=== PATIENT | female | born 1975 | race Caucasian/White ===

== ENCOUNTER 2016-07-24 11:40 | Observation (INO) | payer OTHER ==
[~2016-07-24] VITALS: Ht 154.9 cm; Wt 46.9 kg
[~2016-07-24 11:40] MED LIST: ACET-704 PO; ALPR0.25 PO; LEVO750T31 PO; PROM25TA10 PO; SULF1TAB23 PO
--- NOTE | 2016-07-24 11:59 | PHYS DOC ---
Past History Past Medical History: No Pertinent History Past Surgical History: No Surgical History Smoking: Less than 1pk/day Alcohol Use: Occasionally Drug Use: None Adult General Chief Complaint Chief Complaint: HYPERGLYCEMIA HPI HPI Patient is a patient is a 41 and female sent over to the emergency room by her PCP for elevated blood sugars. Patient states she has not been eating for the past 4 days secondary to her colitis and today she had for Dr. fregoso and [employer] prior to going to her PCP which she believes is related her blood sugars. Patient has no known history of diabetes. Patient does admit to heavy drinking last week was 5 days ago. Patient denies any history of withdrawal symptoms. Patient does state that she is mildly confused and just does not feel right. Patient does states she is anxious. Has any chest pain or shortness of breath. Patient denies any fevers. Patient has no other complaints. Pertinent exam findings: General anxiety ED course: Patient was seen upon arrival CBC, CMP, lipase, UA, EtOH level, 1 L normal saline bolus along with thiamine was ordered 1320: Discussed lab results the patient and the need to admit for alcohol withdrawal 1330: Discussed chief complaint/history of present illness/past medical history with who agrees to admit the patient to ICU as a full admit Pertinent findings: Elevated INR gap, transaminitis, elevated alcohol level, a lipase MMD: After reviewing the chart, CC, history of present illness, past medical history , lab results the patient is in acute alcohol withdrawal and will admit the patient for further evaluation and management ICU. Review of Systems Review of Systems Constitutional: Anxious Eyes: Denies change in visual acuity, redness, or eye pain [] HENT: Denies nasal congestion or sore throat [] Respiratory: Denies cough or shortness of breath [] Cardiovascular: No additional information not addressed in HPI [] GI: Denies abdominal pain, nausea, vomiting, bloody stools or diarrhea [] : Denies dysuria or hematuria [] Musculoskeletal: Denies back pain or joint pain [] Integument: Denies rash or skin lesions [] Allergies Allergies Allergies Coded Allergies Type Severity Reaction Last Updated Verified Penicillins Allergy Intermediate HIVES 09/24/14 Yes Physical Exam Physical Exam Constitutional: Well developed, well nourished, no acute distress, non-toxic appearance. [] HENT: Normocephalic, atraumatic, bilateral external ears normal, dry mucous members, no oral exudates, nose normal. [] Eyes: PERRLA, EOMI, conjunctiva normal, no discharge. [] Neck: Normal range of motion, no tenderness, supple, no stridor. [] Cardiovascular:Heart rate regular rhythm, no murmur [] Lungs & Thorax: Bilateral breath sounds clear to auscultation [] Abdomen: Bowel sounds normal, soft, no tenderness, no masses, no pulsatile masses. [] Skin: Warm, dry, no erythema, no rash. [] Back: No tenderness, no CVA tenderness. [] Extremities: No tenderness, no cyanosis, no clubbing, ROM intact, no edema. [] Neurologic: Alert and oriented X 3, normal motor function, normal sensory function, no focal deficits noted. [] Psychologic: anxious. [] Current Patient Data Lab Results Nursery Laboratory Tests 07/24/16 12:37: White Blood Count 4.0, Red Blood Count 4.76, Hemoglobin 17.1, Hematocrit 49.1, Mean Corpuscular Volume 103, Mean Corpuscular Hemoglobin 36, Mean Corpuscular Hemoglobin Concent 35, Red Cell Distribution Width 14.4, Platelet Count 123, Neutrophils (%) (Auto) 63, Lymphocytes (%) (Auto) 24, Monocytes (%) (Auto) 10, Eosinophils (%) (Auto) 2, Basophils (%) (Auto) 1, Neutrophils # (Auto) 2.6, Lymphocytes # (Auto) 1.0, Monocytes # (Auto) 0.4, Eosinophils # (Auto) 0.1, Basophils # (Auto) 0.0, Sodium Level 139, Potassium Level 3.5, Chloride Level 97 , Carbon Dioxide Level 27, Anion Gap 15, Blood Urea Nitrogen 7, Creatinine 0.8, Estimated GFR (Cockcroft-Gault) 79.0, BUN/Creatinine Ratio 9, Glucose Level 115 , Calcium Level 8.9, Total Bilirubin 0.5, Aspartate Amino Transf (AST/SGOT) 97, Alanine Aminotransferase (ALT/SGPT) 83, Alkaline Phosphatase 91, Total Protein 8.8, Albumin 4.0, Albumin/Globulin Ratio 0.8, Lipase 1106, Ethyl Alcohol Level 177 EKG EKG [] Radiology/Procedures Radiology/Procedures [] Course & Med Decision Making Course & Med Decision Making Critical care time was 35 minutes exclusive of procedures.Pertinent Labs and Imaging studies reviewed. (See chart for details) [] Dragon Disclaimer Dragon Disclaimer This chart was dictated in whole or in part using Voice Recognition software in a busy, high-work load, and often noisy Emergency Department environment. It may contain unintended and wholly unrecognized errors or omissions. Departure Departure: Impression: Primary Impression: Alcohol withdrawal Additional Impressions: Transaminitis Acute pancreatitis Disposition: ADMITTED INPATIENT Admitting Physician: Fritz Bustamante Condition: CRITICAL Referrals: FRITZ BUSTAMANTE MD (PCP) Problem Qualifiers Primary Impression: Alcohol withdrawal Complication of substance-induced condition: with unspecified complication Qualified Codes: F10.239 - Alcohol dependence with withdrawal, unspecified Additional Impressions: Acute pancreatitis Pancreatitis type: drug induced Acute pancreatitis complication: unspecified Qualified Codes: K85.30 - Drug induced acute pancreatitis without necrosis or infection ELLIOTT MTZ DO July 24, 2016 11:58
[2016-07-24] MEDS ORDERED: IV NORMAL SALINE 1,000ML 1,000 ML IV ONE (12:00)
[2016-07-24] MEDS ORDERED: ONDANSETRON PF 4 MG/2 ML VIAL. IV ONE (12:15)
[2016-07-24] MEDS ORDERED: fentaNYL PF 100 MCG/2 ML VIAL IM ONE (12:30)
[2016-07-24] MEDS ORDERED: THIAMINE 100 MG in IV NORMAL SALINE 50ML 50 ML IV ONE (12:30)
[2016-07-24] MEDS ORDERED: LORazepam 2 MG/ML VIAL IV ONE (12:45)
[2016-07-24 12:50] LABS: BASO % 1 % (0-3); EOS # 0.1 x10^3/uL (0.0-0.7); EOS % 2 % (0-3); HEMATOCRIT 49.1 % (36.0-47.0); HEMOGLOBIN 17.1 g/dL (12.0-15.5); LYMPH % 24 % (24-48); MEAN CORPUSCULAR HEMOGLOBIN 36 pg (25-35); MEAN CORPUSCULAR HGB CONC 35 g/dL (31-37); MEAN CORPUSCULAR VOLUME 103 fL (79-100); MONO # 0.4 x10^3/uL (0.0-1.1); MONO % 10 % (0-9); NEUT # 2.6 x10^3uL (1.8-7.7); NEUT % 63 % (31-73); PLATELET COUNT 123 x10^3/uL (140-400); RED BLOOD COUNT 4.76 x10^6/uL (3.50-5.40); RED CELL DISTRIBUTION WIDTH 14.4 % (11.5-14.5)
[2016-07-24 13:02] LABS: ALBUMIN/GLOBULIN RATIO 0.8 (1.0-1.7); CALCIUM 8.9 mg/dL (8.5-10.1); CREATININE 0.8 mg/dL (0.6-1.0); POTASSIUM 3.5 mmol/L (3.5-5.1); TOTAL BILIRUBIN 0.5 mg/dL (0.2-1.0); TOTAL PROTEIN 8.8 g/dL (6.4-8.2)
[2016-07-24] MEDS ORDERED: ONDANSETRON PF 4 MG/2 ML VIAL. IV PRN (14:00)
[2016-07-24 15:10] VITALS: BP 138/97
[2016-07-24] MEDS ORDERED: chlordiazePOXIDE HCL 25 MG CAPSULE PO PRN (15:15)
[2016-07-24 16:03] VITALS: BP 138/97
[2016-07-24] MEDS: IV NORMAL SALINE 1,000ML 1,000 ML IV SCH (16:44)
[2016-07-24 17:02] VITALS: BP 141/96
[2016-07-24] MEDS ORDERED: PROMETHAZINE 12.5 MG in IV NORMAL SALINE 50ML 50 ML IV PRN (18:00)
[2016-07-24] MEDS ORDERED: PROMETHAZINE 25 MG TABLET. PO PRN (18:00)
[2016-07-24 19:14] VITALS: BP 135/87
[2016-07-24] MEDS: chlordiazePOXIDE HCL 25 MG CAPSULE PO PRN (19:20)
[2016-07-24] MEDS: LORazepam 2 MG/ML VIAL IV PRN (21:21)
[2016-07-24 21:25] VITALS: BP 128/92
[2016-07-24 22:11] LABS: BILIRUBIN,URINE NEG (NEG); CLARITY,URINE HAZY; COLOR,URINE YELLOW; GLUCOSE,URINE NEG (NEG)
[2016-07-24 22:17] LABS: NITRITE,URINE NEG (NEG); UROBILINOGEN,URINE 0.2 mg/dL (0.2 mg/dL)
[2016-07-24 22:18] LABS: BACTERIA,URINE 0 /HPF (0-FEW); RBC,URINE RARE /HPF (0-2); SQUAMOUS EPITHELIAL CELL,UR MOD /LPF
[2016-07-25 00:27] VITALS: BP 131/74
[2016-07-25] MEDS: IV NORMAL SALINE 1,000ML 1,000 ML IV SCH (01:59)
[2016-07-25 05:47] VITALS: BP 150/102
[2016-07-25] MEDS: chlordiazePOXIDE HCL 25 MG CAPSULE PO PRN (05:53)
[2016-07-25 06:02] LABS: BASO % 1 % (0-3); EOS # 0.1 x10^3/uL (0.0-0.7); EOS % 2 % (0-3); HEMATOCRIT 42.1 % (36.0-47.0); HEMOGLOBIN 14.5 g/dL (12.0-15.5); LYMPH # 0.4 x10^3/uL (1.0-4.8); LYMPH % 14 % (24-48); MEAN CORPUSCULAR HEMOGLOBIN 36 pg (25-35); MEAN CORPUSCULAR HGB CONC 35 g/dL (31-37); MEAN CORPUSCULAR VOLUME 104 fL (79-100); MONO # 0.3 x10^3/uL (0.0-1.1); MONO % 10 % (0-9); NEUT # 2.2 x10^3uL (1.8-7.7); NEUT % 73 % (31-73); PLATELET COUNT 78 x10^3/uL (140-400); RED BLOOD COUNT 4.03 x10^6/uL (3.50-5.40); RED CELL DISTRIBUTION WIDTH 13.9 % (11.5-14.5); WHITE BLOOD COUNT 3.1 x10^3/uL (4.0-11.0)
[2016-07-25 06:11] LABS: AMYLASE 69 U/L (25-115); LIPASE 499 U/L (73-393)
[2016-07-25 06:14] LABS: ALBUMIN 2.9 g/dL (3.4-5.0); ALBUMIN/GLOBULIN RATIO 0.8 (1.0-1.7); CALCIUM 7.5 mg/dL (8.5-10.1); CREATININE 0.6 mg/dL (0.6-1.0); GFR 110.2; POTASSIUM 3.4 mmol/L (3.5-5.1); TOTAL BILIRUBIN 1.2 mg/dL (0.2-1.0); TOTAL PROTEIN 6.4 g/dL (6.4-8.2)
[2016-07-25 08:28] VITALS: BP 144/100
[2016-07-25 08:30] VITALS: BP 150/95
[2016-07-25] MEDS: LORazepam 2 MG/ML VIAL IV PRN (08:34)
[2016-07-25] MEDS ORDERED: MULT-211 PO (10:33)
== END 2016-07-25 10:40 | disposition home or self-care (01) ==
LOC: ER 11:40 → INTOOBSV 13:54 → ICU 13:54
PROVIDERS: ADMIT Family Medicine; ATTEND Family Medicine
DX: F10.239 Alcohol dependence with withdrawal, unspecified (principal); R73.9 Hyperglycemia, unspecified; K85.30 Drug induced acute pancreatitis without necrosis or infection; R74.0 Nonspecific elevation of levels of transaminase and lactic acid dehydrogenase [LDH]; F41.1 Generalized anxiety disorder
CPT/HCPCS: 36415; 80053; 81001; 82150; 83690; 85027; 87086; 87641; 96361; 96365; 96367; 96375; 96376; 99285; G0378; G0480; J2060; J2405; J2550; G0379; J7030

== ENCOUNTER 2017-05-12 11:04 | Inpatient (IN) | payer OTHER ==
[~2017-05-12] VITALS: Ht 157.5 cm; Wt 55.5 kg
[~2017-05-12 11:04] MED LIST changes: +MULT-211 PO
[2017-05-12 11:25] VITALS: BP 150/95
[2017-05-12] MEDS ORDERED: ACETAMINOPHEN 325 MG TABLET PO PRN (11:30)
[2017-05-12 11:38] VITALS: BP 106/66
[2017-05-12 11:41] LABS: BASO % 0 % (0-3); EOS # 0.1 x10^3/uL (0.0-0.7); EOS % 1 % (0-3); HEMATOCRIT 36.5 % (36.0-47.0); HEMOGLOBIN 12.4 g/dL (12.0-15.5); LYMPH # 0.9 x10^3/uL (1.0-4.8); LYMPH % 8 % (24-48); MEAN CORPUSCULAR HEMOGLOBIN 33 pg (25-35); MEAN CORPUSCULAR HGB CONC 34 g/dL (31-37); MEAN CORPUSCULAR VOLUME 97 fL (79-100); MONO # 0.7 x10^3/uL (0.0-1.1); MONO % 6 % (0-9); NEUT # 10.7 x10^3uL (1.8-7.7); NEUT % 86 % (31-73); PLATELET COUNT 327 x10^3/uL (140-400); RED BLOOD COUNT 3.77 x10^6/uL (3.50-5.40); RED CELL DISTRIBUTION WIDTH 14.1 % (11.5-14.5); WHITE BLOOD COUNT 12.4 x10^3/uL (4.0-11.0)
[2017-05-12] MEDS ORDERED: IOHEXOL 240 MG/ML 50ML VIAL. ONE (11:48)
[2017-05-12 12:08] LABS: ALBUMIN 3.5 g/dL (3.4-5.0); ALBUMIN/GLOBULIN RATIO 1.1 (1.0-1.7); CALCIUM 8.5 mg/dL (8.5-10.1); CREATININE 0.8 mg/dL (0.6-1.0); GFR 78.7; TOTAL BILIRUBIN 0.5 mg/dL (0.2-1.0); TOTAL PROTEIN 6.8 g/dL (6.4-8.2)
[2017-05-12 12:12] LABS: POTASSIUM 2.9 mmol/L (3.5-5.1)
[2017-05-12] MEDS ORDERED: POTASSIUM CHLORIDE 20 MEQ/15 ML ORAL LIQUID. FT SCH (13:15)
[2017-05-12] MEDS: IV NORMAL SALINE 1,000ML 1,000 ML IV SCH (13:58)
[2017-05-12] MEDS: POTASSIUM CHLORIDE 10MEQ 50 ML IV SCH ×4 (13:59→18:19)
[2017-05-12 14:00] LABS: FECAL OB PT POSITIVE (NEG)
[2017-05-12] MEDS: ONDANSETRON PF 4 MG/2 ML VIAL. IV PRN ×2 (14:14→21:28)
[2017-05-12] MEDS ORDERED: PROMETHAZINE 25 MG TABLET. PO PRN (14:45)
[2017-05-12] MEDS ORDERED: MIRT15TA3 PO (14:52)
[2017-05-12] MEDS ORDERED: NAPR-514 PO (14:52)
[2017-05-12] MEDS ORDERED: SERT50TA PO (14:52)
[2017-05-12] MEDS ORDERED: PRAZ2CAP2 PO (14:52)
[2017-05-12] MEDS ORDERED: NALT50TA PO (14:52)
[2017-05-12] MEDS ORDERED: LORA0.5T PO (14:52)
[2017-05-12] MEDS ORDERED: PRED20TA PO (14:52)
[2017-05-12] MEDS ORDERED: GABA-586 PO (14:52)
[2017-05-12 15:03] LABS: BILIRUBIN,URINE NEG (NEG); CLARITY,URINE CLEAR; COLOR,URINE YELLOW; GLUCOSE,URINE NEG (NEG); NITRITE,URINE NEG (NEG); UROBILINOGEN,URINE 0.2 mg/dL (0.2 mg/dL)
[2017-05-12 15:04] LABS: BACTERIA,URINE 0 /HPF (0-FEW); SQUAMOUS EPITHELIAL CELL,UR MOD /LPF
--- NOTE | 2017-05-12 15:50 | RAD ---
PQRS Compliance Statement: One or more of the following individualized dose reduction techniques were utilized for this examination: 1. Automated exposure control 2. Adjustment of the mA and/or kV according to patient size 3. Use of iterative reconstruction technique CT ABD PEL W/ORAL CONTRST ONLY Clinical Indication: patient has been told she has colitis diarrhea for last 5 weeks. Comparison: CT abdomen and pelvis without IV contrast, September 28, 2015. TECHNIQUE: Helical CT imaging of the abdomen and pelvis is performed after oral contrast. IV contrast not given. Findings: There is minimal atelectasis or scarring in the bilateral lower lobes. Calcified granuloma left lower lobe. Cardiac size normal. The liver, gallbladder, spleen, pancreas, adrenal glands, and abdominal aorta caliber are normal. There is no renal calculus. No hydronephrosis or perinephric stranding. Stomach is unremarkable. No dilated small bowel. There is no colon wall thickening. The appendix is normal. The urinary bladder is normal. Uterus and ovaries unremarkable. Trace pelvic free fluid. No acute bone abnormality. IMPRESSION: 1. No acute abdominal or pelvic abnormality. 2. Trace pelvic free fluid, probably physiologic. Electronically signed by: Isma Tucker MD (05/12/2017 3:47 PM) [id number]
[2017-05-12 20:20] VITALS: BP 108/70
[2017-05-12] MEDS: PRAZOSIN 1 MG CAPSULE. PO SCH (21:27)
[2017-05-12] MEDS: MIRTAZAPINE 7.5 MG TABLET. PO SCH (21:27)
[2017-05-12] MEDS: LORazepam 0.5 MG TABLET PO SCH (21:27)
[2017-05-12] MEDS: GABAPENTIN 300 MG CAPSULE. PO SCH (21:28)
[2017-05-12 23:27] VITALS: BP 96/61
[2017-05-13] MEDS: IV NORMAL SALINE 1,000ML 1,000 ML IV SCH ×3 (00:11→20:31)
[2017-05-13] MEDS: metroNIDAZOLE 500 MG TABLET PO SCH ×4 (03:50→20:03)
[2017-05-13 05:48] VITALS: BP 109/73
[2017-05-13 06:42] LABS: BASO % 1 % (0-3); EOS # 0.2 x10^3/uL (0.0-0.7); EOS % 4 % (0-3); HEMATOCRIT 34.4 % (36.0-47.0); HEMOGLOBIN 11.8 g/dL (12.0-15.5); LYMPH # 1.2 x10^3/uL (1.0-4.8); LYMPH % 23 % (24-48); MEAN CORPUSCULAR HEMOGLOBIN 34 pg (25-35); MEAN CORPUSCULAR HGB CONC 34 g/dL (31-37); MEAN CORPUSCULAR VOLUME 98 fL (79-100); MONO # 0.4 x10^3/uL (0.0-1.1); MONO % 8 % (0-9); NEUT # 3.3 x10^3uL (1.8-7.7); NEUT % 64 % (31-73); PLATELET COUNT 286 x10^3/uL (140-400); RED BLOOD COUNT 3.51 x10^6/uL (3.50-5.40); RED CELL DISTRIBUTION WIDTH 13.7 % (11.5-14.5); WHITE BLOOD COUNT 5.1 x10^3/uL (4.0-11.0)
[2017-05-13 06:53] LABS: CALCIUM 7.7 mg/dL (8.5-10.1); CREATININE 0.6 mg/dL (0.6-1.0); GFR 109.6; POTASSIUM 3.5 mmol/L (3.5-5.1)
[2017-05-13] MEDS ORDERED: PNEUMOC CONJ VACC 23-VALENT 0.5 ML VIAL. VAX IM ONE (09:00)
[2017-05-13] MEDS: LORazepam 0.5 MG TABLET PO SCH ×2 (09:32→20:03)
[2017-05-13] MEDS: predniSONE 20 MG TABLET PO SCH (09:32)
[2017-05-13] MEDS: MULTIVITAMIN with MINERAL TABLET. PO SCH (09:32)
[2017-05-13] MEDS: GABAPENTIN 300 MG CAPSULE. PO SCH ×3 (09:33→20:04)
[2017-05-13] MEDS: SERTRALINE 50 MG TABLET. PO SCH (09:33)
[2017-05-13] MEDS ORDERED: ZOLPIDEM 5 MG TABLET. PO PRN (10:00)
[2017-05-13] MEDS: NALTREXONE HCL 50 MG TABLET PO SCH (10:21)
[2017-05-13] MEDS: ONDANSETRON PF 4 MG/2 ML VIAL. IV PRN ×2 (10:21→20:17)
[2017-05-13 11:11] VITALS: BP 118/77
[2017-05-13] MEDS: VANCOMYCIN 250 MG/5 ML ORAL SOLUTION. PO SCH ×3 (14:50→20:02)
[2017-05-13 15:47] VITALS: BP 163/72
[2017-05-13 19:04] VITALS: BP 126/72
[2017-05-13] MEDS: MIRTAZAPINE 7.5 MG TABLET. PO SCH (20:03)
[2017-05-13] MEDS: PRAZOSIN 1 MG CAPSULE. PO SCH (20:03)
--- NOTE | 2017-05-13 23:23 | PN ---
DATE: 05/13/2017 SUBJECTIVE: A 42-year-old female came in with significant diarrhea. No history of taking antibiotics, positive for C. diff. Her potassium was also extremely low at 2.9. As a result of this, the patient was admitted to the hospital, placed on IV fluids, placed on vancomycin and metronidazole, doing somewhat better. OBJECTIVE: VITAL SIGNS: Blood pressure was as low as 96/61, has come up to 163/72, respiratory rate 20, pulse 70, afebrile. LUNGS: Diminished, but clear. CARDIOVASCULAR: Stable. ABDOMEN: Soft, diffuse tenderness, but improved. IMPRESSION: C. difficile colitis, hypokalemia, hematochezia. PLAN: Continue on present medication. Monitor electrolytes and hopefully ready for discharge here soon. Long discussion with the patient about the consideration of the situation. CAMERON PENNY MD DR: YVETTE/chidi JOB#: [id number] / [id number]
[2017-05-14] MEDS: IV NORMAL SALINE 1,000ML 1,000 ML IV SCH (04:31)
[2017-05-14 06:04] VITALS: BP 149/92
[2017-05-14 06:19] VITALS: BP 127/82
[2017-05-14 06:56] LABS: BASO % 0 % (0-3); EOS # 0.1 x10^3/uL (0.0-0.7); EOS % 2 % (0-3); HEMOGLOBIN 11.9 g/dL (12.0-15.5); LYMPH # 1.3 x10^3/uL (1.0-4.8); LYMPH % 20 % (24-48); MEAN CORPUSCULAR HEMOGLOBIN 34 pg (25-35); MEAN CORPUSCULAR HGB CONC 34 g/dL (31-37); MEAN CORPUSCULAR VOLUME 98 fL (79-100); MONO # 0.4 x10^3/uL (0.0-1.1); MONO % 6 % (0-9); NEUT # 4.6 x10^3uL (1.8-7.7); NEUT % 72 % (31-73); PLATELET COUNT 296 x10^3/uL (140-400); RED BLOOD COUNT 3.56 x10^6/uL (3.50-5.40); WHITE BLOOD COUNT 6.5 x10^3/uL (4.0-11.0)
[2017-05-14] MEDS: VANCOMYCIN 250 MG/5 ML ORAL SOLUTION. PO SCH (09:28)
[2017-05-14] MEDS: MULTIVITAMIN with MINERAL TABLET. PO SCH (09:29)
[2017-05-14] MEDS: metroNIDAZOLE 500 MG TABLET PO SCH (09:29)
[2017-05-14] MEDS: GABAPENTIN 300 MG CAPSULE. PO SCH (09:29)
[2017-05-14] MEDS: NALTREXONE HCL 50 MG TABLET PO SCH (09:29)
[2017-05-14] MEDS: SERTRALINE 50 MG TABLET. PO SCH (09:30)
[2017-05-14] MEDS: predniSONE 20 MG TABLET PO SCH (09:30)
[2017-05-14] MEDS: LORazepam 0.5 MG TABLET PO SCH (09:34)
[2017-05-14] MEDS ORDERED: ZOLP5TAB PO (10:27)
[2017-05-14] MEDS ORDERED: VANC500V PO (10:27)
[2017-05-14] MEDS ORDERED: METR500T PO (10:27)
--- NOTE | 2017-05-14 12:17 | DS ---
DATE OF DISCHARGE: HOSPITAL COURSE: A 42-year-old female, came in with diarrhea, abdominal cramping and pain after 10 stools a day, markedly dehydrated. As a result of this, the patient was given IV fluids. Her stool showed C. difficile colitis and as a result of this the patient was admitted. The patient made good progress during the rest of her hospitalization and was discharged home on Flagyl and vancomycin, which really seemed to help her stool, count went down as a result of the combination of antibiotics. The patient also was slightly anemic at 11.9 and 35. Chemistries showed a low potassium of 2.9, up to 3.5. She will be discharged home, see EMRAD, decreased activity, and was given precautions on her C. diff. IMPRESSION: Clostridium difficile colitis, dehydration, hypokalemia, mild hematuria, fecal Hemoccult positive. FOLLOW UP: The patient follows up with Dr. Burns. CAMERON PENNY MD DR: YVETTE/chidi JOB#: [id number] / [id number]
== END 2017-05-14 11:15 | disposition home or self-care (01) | DRG 373 ==
LOC: 1 SOUTH 11:11 → OBSVTOIN 11:11
PROVIDERS: ADMIT Family Medicine; ATTEND Family Medicine
DX: A04.72 Enterocolitis due to Clostridium difficile, not specified as recurrent (principal); D64.9 Anemia, unspecified; R31.9 Hematuria, unspecified; E86.0 Dehydration; E87.6 Hypokalemia; Z88.0 Allergy status to penicillin
CPT/HCPCS: 36415; 74176; 80048; 80053; 81001; 82274; 84132; 85025; 85651; 87045; 87086; 87177; 87324; J2405; J3480; J7512; Q0169; J7030

== ENCOUNTER 2017-05-22 15:38 | Emergency (ER) | payer OTHER ==
[~2017-05-22] VITALS: Ht 157.5 cm; Wt 54.6 kg
[~2017-05-22 15:38] MED LIST changes: +GABA-586 PO; +LORA0.5T PO; +METR500T PO; +MIRT15TA3 PO; +NALT50TA PO; +NAPR-514 PO; +PRAZ2CAP2 PO; +PRED20TA PO; +SERT50TA PO; +VANC500V PO; +ZOLP5TAB PO
[2017-05-22] MEDS ORDERED: IV NORMAL SALINE 1,000ML 1,000 ML IV ONE (16:15)
--- NOTE | 2017-05-22 16:40 | RAD ---
RIBS RIGHT AND PA CHEST History: Right-sided rib pain, shortness of air, fall this a.m. Comparison: September 28, 2015 Findings: Single view of the chest and 2 additional views right ribs are submitted. Pericardial cardiac silhouette is stable. There is again small granuloma left lung base, also small focus mid right hemithorax. There is no pneumothorax, pleural fluid, infiltrate. No displaced right rib fracture is identified. Impression: 1. No acute abnormality is identified. Electronically signed by: Mario Kennedy MD (05/22/2017 4:37 PM) [id number]
[2017-05-22 16:43] LABS: BASO # 0.1 x10^3/uL (0.0-0.2); BASO % 1 % (0-3); EOS # 0.1 x10^3/uL (0.0-0.7); EOS % 2 % (0-3); HEMATOCRIT 42.2 % (36.0-47.0); HEMOGLOBIN 14.1 g/dL (12.0-15.5); LYMPH # 0.9 x10^3/uL (1.0-4.8); LYMPH % 12 % (24-48); MEAN CORPUSCULAR HEMOGLOBIN 33 pg (25-35); MEAN CORPUSCULAR HGB CONC 33 g/dL (31-37); MEAN CORPUSCULAR VOLUME 98 fL (79-100); MONO # 0.5 x10^3/uL (0.0-1.1); MONO % 7 % (0-9); NEUT # 5.5 x10^3uL (1.8-7.7); NEUT % 79 % (31-73); PLATELET COUNT 288 x10^3/uL (140-400); RED CELL DISTRIBUTION WIDTH 14.1 % (11.5-14.5); WHITE BLOOD COUNT 7.1 x10^3/uL (4.0-11.0)
[2017-05-22 16:45] LABS: CALCIUM 9.6 mg/dL (8.5-10.1); CREATININE 0.7 mg/dL (0.6-1.0); GFR 91.8; POTASSIUM 4.4 mmol/L (3.5-5.1)
--- NOTE | 2017-05-22 17:15 | PHYS DOC ---
Past History Past Medical History: Anxiety Past Surgical History: Other Smoking: Less than 1pk/day Alcohol Use: Sober Drug Use: None Adult General Chief Complaint Chief Complaint: MULTIPLE COMPLAINTS HPI HPI Patient is a 42 year old F who presents with right-sided rib pain after a fall this morning. Tamera states that she woke up around 3:00 this morning with an urge to go to the bathroom. Upon standing she felt the room was spinning. She tried to grab on to the counter and was unable to stop herself from falling. She landed on the right side of her body hitting her right ribs and right face. She states that her symptoms improved without intervention. She has no other associated symptoms at this time. She has no other exacerbating or alleviating factors. She was recently diagnosed with C. difficile and is currently on oral vancomycin and Flagyl. Review of Systems Review of Systems Constitutional: Denies fever or chills [] Eyes: Denies change in visual acuity, redness, or eye pain [] HENT: Denies nasal congestion or sore throat [] Respiratory: Denies cough or shortness of breath [] Cardiovascular: No additional information not addressed in HPI [] GI: Denies abdominal pain, nausea, vomiting, bloody stools or diarrhea [] : Denies dysuria or hematuria [] Musculoskeletal: Denies back pain or joint pain [] Integument: Denies rash or skin lesions [] Neurologic: Denies headache, focal weakness or sensory changes [] Endocrine: Denies polyuria or polydipsia [] All other systems were reviewed and found to be within normal limits, except as documented in this note. Family History Family History No pertinent family medical history was reported Current Medications Current Medications Current medications were reviewed Current Medications Medications (Trade) Dose Ordered Sig/Shelley Start Time Stop Time Status Last Admin Dose Admin Sodium Chloride 1,000 ml @ 1,000 mls/hr 1X ONCE 05/22/17 16:15 05/22/17 17:14 05/22/17 16:15 1,000 MLS/HR Allergies Allergies Allergies Coded Allergies Type Severity Reaction Last Updated Verified Penicillins Allergy Intermediate HIVES 09/24/14 Yes Physical Exam Physical Exam Constitutional: Well developed, well nourished, no acute distress, non-toxic appearance. [] HENT: Normocephalic, atraumatic, Eyes: EOMI, conjunctiva normal, no discharge. [] Neck: Normal range of motion, no tenderness, supple, no stridor. [] Cardiovascular:Heart rate regular rhythm, Lungs & Thorax: Bilateral breath sounds clear to auscultation [] right lateral rib pain with palpation Abdomen: Bowel sounds normal, soft, no tenderness, no masses, no pulsatile masses. [] Skin: Warm, dry, no erythema, no rash. [] Back: No tenderness, no CVA tenderness. [] Extremities: No tenderness, no cyanosis, no clubbing, ROM intact, no edema. [] Neurologic: Alert and oriented X 3, normal motor function, normal sensory function, no focal deficits noted. [] Psychologic: Affect normal, judgement normal, mood normal. [] Current Patient Data Vital Signs Vital Signs Date Time Temp Pulse Resp B/P (MAP) Pulse Ox O2 Delivery O2 Flow Rate FiO2 05/22/17 15:52 97.8 83 18 100 Room Air Lab Results Laboratory Tests Test 05/22/17 16:25 White Blood Count 7.1 x10^3/uL (4.0-11.0) Red Blood Count 4.30 x10^6/uL (3.50-5.40) Hemoglobin 14.1 g/dL (12.0-15.5) Hematocrit 42.2 % (36.0-47.0) Mean Corpuscular Volume 98 fL (79-100) Mean Corpuscular Hemoglobin 33 pg (25-35) Mean Corpuscular Hemoglobin Concent 33 g/dL (31-37) Red Cell Distribution Width 14.1 % (11.5-14.5) Platelet Count 288 x10^3/uL (140-400) Neutrophils (%) (Auto) 79 % (31-73) H Lymphocytes (%) (Auto) 12 % (24-48) L Monocytes (%) (Auto) 7 % (0-9) Eosinophils (%) (Auto) 2 % (0-3) Basophils (%) (Auto) 1 % (0-3) Neutrophils # (Auto) 5.5 x10^3uL (1.8-7.7) Lymphocytes # (Auto) 0.9 x10^3/uL (1.0-4.8) L Monocytes # (Auto) 0.5 x10^3/uL (0.0-1.1) Eosinophils # (Auto) 0.1 x10^3/uL (0.0-0.7) Basophils # (Auto) 0.1 x10^3/uL (0.0-0.2) Sodium Level 141 mmol/L (136-145) Potassium Level 4.4 mmol/L (3.5-5.1) Chloride Level 103 mmol/L (98-107) Carbon Dioxide Level 27 mmol/L (21-32) Anion Gap 11 (6-14) Blood Urea Nitrogen 12 mg/dL (7-20) Creatinine 0.7 mg/dL (0.6-1.0) Estimated GFR (Cockcroft-Gault) 91.8 Glucose Level 96 mg/dL (70-99) Calcium Level 9.6 mg/dL (8.5-10.1) EKG EKG [] Radiology/Procedures Radiology/Procedures Right Rib and Chest x-ray Impressions: No acute disease noted. No fracture noted Course & Med Decision Making Course & Med Decision Making Pertinent Labs and Imaging studies reviewed. (See chart for details) [] Dragon Disclaimer Dragon Disclaimer This electronic medical record was generated, in whole or in part, using a voice recognition dictation system. Departure Departure: Impression: Primary Impression: Vertigo Additional Impression: Contusion of rib on right side Disposition: 01 HOME, SELF-CARE Condition: STABLE Referrals: CAMERON PENNY MD (PCP) Patient Instructions: Rib Contusion, Vertigo Additional Instructions: Tamera was seen in the emergency department for dizziness and fall. No emergency medical condition was found on history or physical exam. She did have normal labs and imaging. Her symptoms are most consistent with vertigo. Her fall resulted in a right sided rib contusion, or bruise. She is encouraged to use lidocaine patches for pain and take frequent deep breaths to prevent complications associated with her bruises. She was encouraged to return to the emergency room if she develops new or worsening symptoms. She was also advised follow-up with her primary care doctor as needed for further management. Problem Qualifiers Additional Impression: Contusion of rib on right side Encounter type: initial encounter Qualified Codes: S20.211A - Contusion of right front wall of thorax, initial encounter CAMERON GREY MD May 22, 2017 17:15
[2017-05-22 17:22] VITALS: BP 109/69
== END 2017-05-22 17:23 | disposition home or self-care (01) ==
LOC: ER 15:38
DX: S20.211A Contusion of right front wall of thorax, initial encounter (principal); R42 Dizziness and giddiness; F41.9 Anxiety disorder, unspecified; F17.200 Nicotine dependence, unspecified, uncomplicated; Z88.0 Allergy status to penicillin; W01.198A Fall on same level from slipping, tripping and stumbling with subsequent striking against other object, initial encounter; Y93.89 Activity, other specified; Y92.091 Bathroom in other non-institutional residence as the place of occurrence of the external cause; Y99.8 Other external cause status
CPT/HCPCS: 36415; 71101; 80048; 85025; 96360; 99285-25; J7030

== ENCOUNTER 2017-12-25 09:40 | Emergency (ER) | payer OTHER ==
[2017-12-25] MEDS ORDERED: IV NORMAL SALINE 1,000ML 1,000 ML IV SCH (09:51)
--- NOTE | 2017-12-25 10:01 | PHYS DOC ---
Past History Past Medical History: Anxiety Additional Past Medical Histor: patient reports a history of ulcerative colitis Past Surgical History: Other Additional Past Surgical Histo: hernia Smoking: Less than 1pk/day Alcohol Use: Occasionally Drug Use: None Adult General Chief Complaint Chief Complaint: NAUSEA/VOMITING/DIARRHEA HPI HPI Patient is a 42-year-old female who presents to the emergency department for evaluation. She states that she has not felt well for the past 3 days, with general malaise. She states she has felt cold, and has had nonbloody diarrhea. She has not had any fevers. She has not had any vomiting and denies any new abdominal pain. She states she has a history of "colitis", which she states was diagnosed as ulcerative colitis, she has had C. difficile in the past, apparently most recently this past May when she had a test that was positive here. She has not had any cough or nasal congestion. She denies any chest pain or shortness of breath, headache, otalgia, numbness or focal weakness. There are no alleviating, or exacerbating factors to her symptoms. She denies any recent travel or antibiotic use. Review of Systems Review of Systems Constitutional: Denies fever or chills. Does report feeling cold. [] Eyes: Denies change in visual acuity, redness, or eye pain [] HENT: Denies nasal congestion or sore throat [] Respiratory: Denies cough or shortness of breath [] Cardiovascular: The patient denies any shortness of breath, chest pain, palpitations, or orthopnea[] GI: Denies abdominal pain, nausea, vomiting, bloody stools . Reports diarrhea [] : Denies dysuria or hematuria. States LMP 11/09/17 [] Musculoskeletal: Denies back pain or joint pain [] Integument: Denies rash or skin lesions [] Neurologic: Denies headache, focal weakness or sensory changes [] Endocrine: Denies polyuria or polydipsia [] All other systems were reviewed and found to be within normal limits, except as documented in this note. Current Medications Current Medications Current Medications Medications (Trade) Dose Ordered Sig/Shelley Start Time Stop Time Status Last Admin Dose Admin Sodium Chloride 1,000 ml @ 1,000 mls/hr Q1H 12/25/17 09:51 12/25/17 10:50 UNV Allergies Allergies Allergies Coded Allergies Type Severity Reaction Last Updated Verified Penicillins Allergy Intermediate HIVES 09/24/14 Yes Physical Exam Physical Exam PHYSICAL EXAM: CONSTITUTIONAL: Well developed, well nourished HEAD: normocephalic, atraumatic EENT: PERRL, EOMI. Conjunctivae normal color, sclerae non-icteric; moist mucous membranes. NECK: Supple, non-tender; no meningismus. LUNGS: Lungs CTA, breathing even and unlabored. Normal air movement. HEART: Regular rate and rhythm, no murmur CHEST: No deformity; non-tender ABDOMEN: The abdomen is soft, there is very mild tenderness to palpation in the left mid and lower abdomen, without rebound or guarding. The remainder the abdomen is soft and non-tender, no masses or bruits. EXTREM: Normal ROM; no deformity, no calf tenderness. Normal pulses palpable in all extremities. There is no pedal edema. SKIN: No rash; no diaphoresis NEURO: Alert; normal speech and cognition; CN's grossly intact; strength grossly intact without focal deficit. BACK: No CVA TTP. Current Patient Data Lab Results Laboratory Tests Test 12/25/17 10:03 12/25/17 10:13 12/25/17 10:15 White Blood Count 5.6 x10^3/uL Red Blood Count 4.45 x10^6/uL Hemoglobin 15.6 g/dL Hematocrit 45.2 % Mean Corpuscular Volume 102 fL Mean Corpuscular Hemoglobin 35 pg Mean Corpuscular Hemoglobin Concent 35 g/dL Red Cell Distribution Width 16.2 % Platelet Count 195 x10^3/uL Neutrophils (%) (Auto) 67 % Lymphocytes (%) (Auto) 23 % Monocytes (%) (Auto) 6 % Eosinophils (%) (Auto) 3 % Basophils (%) (Auto) 1 % Neutrophils # (Auto) 3.8 x10^3uL Lymphocytes # (Auto) 1.3 x10^3/uL Monocytes # (Auto) 0.3 x10^3/uL Eosinophils # (Auto) 0.2 x10^3/uL Basophils # (Auto) 0.0 x10^3/uL Maternal Serum HCG Beta Subunit 1 mIU/mL Sodium Level 140 mmol/L Potassium Level 3.9 mmol/L Chloride Level 102 mmol/L Carbon Dioxide Level 27 mmol/L Anion Gap 11 Blood Urea Nitrogen 10 mg/dL Creatinine 0.6 mg/dL Estimated GFR (Cockcroft-Gault) 109.6 BUN/Creatinine Ratio 17 Glucose Level 79 mg/dL Lactic Acid Level 2.7 mmol/L Calcium Level 8.5 mg/dL Total Bilirubin 0.5 mg/dL Aspartate Amino Transf (AST/SGOT) 26 U/L Alanine Aminotransferase (ALT/SGPT) 26 U/L Alkaline Phosphatase 90 U/L Total Protein 8.3 g/dL Albumin 4.1 g/dL Albumin/Globulin Ratio 1.0 Lipase 606 U/L Serum Test, Qualitative Positive Urine Collection Type Unknown Urine Color Yellow Urine Clarity Hazy Urine pH 7.0 Urine Specific [place] 1.015 Urine Protein Neg Urine Glucose (UA) Neg mg/dL Urine Ketones (Stick) 15 mg/dL Urine Blood Neg Urine Nitrite Neg Urine Bilirubin Neg Urine Urobilinogen Dipstick 0.2 mg/dL Urine Leukocyte Esterase Trace Urine RBC 1-2 /HPF Urine WBC 5-10 /HPF Urine Squamous Epithelial Cells Many /LPF Urine Bacteria Mod /HPF Influenza Type A (Rapid) Negative Influenza Type B (Rapid) Negative Current Medications Medications (Trade) Dose Ordered Sig/Shelley Route PRN Reason Start Time Stop Time Status Last Admin Dose Admin Sodium Chloride 1,000 ml @ 1,000 mls/hr Q1H IV 12/25/17 09:51 12/25/17 10:51 DC 12/25/17 10:14 EKG EKG [] Radiology/Procedures Radiology/Procedures [PROCEDURE: OB <14 WKS Obstetrical ultrasound, 12/25/2014: HISTORY: , pain Transabdominal and transvaginal scans were obtained. The uterus is within normal limits in size. No intrauterine gestational sac is identified. The central intrauterine echo complex measures 9 mm in AP dimension. Small Nabothian cysts are present in the cervix. The ovaries are of normal size. A 2 cm simple cyst is present in the left ovary. There is blood flow in both ovaries. No free fluid is evident in the pelvis. IMPRESSION: 1. No intrauterine or extrauterine gestation is identified. 2. Small left ovarian cyst. 3. Correlation with serial hCG titers and possibly sonographic follow-up is suggested. ] Course & Med Decision Making Course & Med Decision Making Pertinent Labs and Imaging studies reviewed. (See chart for details) [10:40 AM: Blood test came back positive. Patient is a lesbian, and adamantly states she has never had sex with a male in the past. Lab reported that the test was "barely positive", will obtain confirmatory test with quadrant and an ultrasound.] 11:45 AM: The patient's condition remained stable. She is feeling significantly better at this time. She has been unable to provide a stool specimen. I discussed the 0 level of beta hCG. All this might just be spurious, the importance of gynecologic follow-up for further evaluation to exclude an underlying gynecological malignancy or other abnormalities was discussed in detail with the patient. The patient expressed understanding. Given that the patient's symptoms have resolved at this time and she is unable to provide a stool specimen, I do not feel that it is appropriate to treat her empirically with antibiotics at this time. I did discuss importance of close follow-up with her PCP for stool testing if her symptoms persist and we discussed return precautions in detail. The patient has had a chronically elevated lipase level in the past and I'm doubtful that this is of clinical significance given the patient's exam at this time. Dragon Disclaimer Dragon Disclaimer This electronic medical record was generated, in whole or in part, using a voice recognition dictation system. Departure Departure: Impression: Primary Impression: Diarrhea Disposition: HOME, SELF-CARE Condition: STABLE Referrals: CAMERON PENNY MD (PCP) Patient Instructions: Diarrhea RAFI TORRE MD Dec 25, 2017 10:01
[2017-12-25 10:18] LABS: BASO % 1 % (0-3); EOS # 0.2 x10^3/uL (0.0-0.7); EOS % 3 % (0-3); HEMATOCRIT 45.2 % (36.0-47.0); HEMOGLOBIN 15.6 g/dL (12.0-15.5); LYMPH # 1.3 x10^3/uL (1.0-4.8); LYMPH % 23 % (24-48); MEAN CORPUSCULAR HEMOGLOBIN 35 pg (25-35); MEAN CORPUSCULAR HGB CONC 35 g/dL (31-37); MEAN CORPUSCULAR VOLUME 102 fL (79-100); MONO # 0.3 x10^3/uL (0.0-1.1); MONO % 6 % (0-9); NEUT # 3.8 x10^3uL (1.8-7.7); NEUT % 67 % (31-73); PLATELET COUNT 195 x10^3/uL (140-400); RED BLOOD COUNT 4.45 x10^6/uL (3.50-5.40); RED CELL DISTRIBUTION WIDTH 16.2 % (11.5-14.5); WHITE BLOOD COUNT 5.6 x10^3/uL (4.0-11.0)
[2017-12-25 10:34] LABS: PREG TEST PT QUAL POSITIVE (NEG)
[2017-12-25 10:35] LABS: ALBUMIN 4.1 g/dL (3.4-5.0); CALCIUM 8.5 mg/dL (8.5-10.1); CREATININE 0.6 mg/dL (0.6-1.0); GFR 109.6; POTASSIUM 3.9 mmol/L (3.5-5.1); TOTAL BILIRUBIN 0.5 mg/dL (0.2-1.0); TOTAL PROTEIN 8.3 g/dL (6.4-8.2)
[2017-12-25 10:46] LABS: BILIRUBIN,URINE NEG (NEG); CLARITY,URINE HAZY; COLOR,URINE YELLOW; GLUCOSE,URINE NEG (NEG); NITRITE,URINE NEG (NEG); UROBILINOGEN,URINE 0.2 mg/dL (0.2 mg/dL)
[2017-12-25 10:47] LABS: BACTERIA,URINE MOD /HPF (0-FEW); SQUAMOUS EPITHELIAL CELL,UR MANY /LPF
[2017-12-25 11:01] LABS: INFLUENZA A PATIENT NEGATIVE (NEGATIVE); INFLUENZA B PATIENT NEGATIVE (NEGATIVE)
[2017-12-25 11:40] VITALS: BP 116/68
--- NOTE | 2017-12-25 11:44 | RAD ---
Obstetrical ultrasound, 12/25/2014: HISTORY: , pain Transabdominal and transvaginal scans were obtained. The uterus is within normal limits in size. No intrauterine gestational sac is identified. The central intrauterine echo complex measures 9 mm in AP dimension. Small Nabothian cysts are present in the cervix. The ovaries are of normal size. A 2 cm simple cyst is present in the left ovary. There is blood flow in both ovaries. No free fluid is evident in the pelvis. IMPRESSION: 1. No intrauterine or extrauterine gestation is identified. 2. Small left ovarian cyst. 3. Correlation with serial hCG titers and possibly sonographic follow-up is suggested. Electronically signed by: Roberto Trimble MD (12/25/2017 11:41 AM) [facility]
== END 2017-12-25 11:52 | disposition home or self-care (01) ==
LOC: ER 09:40
DX: R19.7 Diarrhea, unspecified (principal); R53.81 Other malaise; N83.202 Unspecified ovarian cyst, left side; F17.200 Nicotine dependence, unspecified, uncomplicated; Z88.0 Allergy status to penicillin
CPT/HCPCS: 36415; 76801; 80053; 81001; 83605; 83690; 84702; 84703; 85025; 87086; 87804; 96360; 99285-25; J7030

== ENCOUNTER 2018-03-05 18:45 | Emergency (ER) | payer SELFPAY ==
[~2018-03-05] VITALS: Ht 157.5 cm; Wt 57.6 kg
[2018-03-05 19:02] VITALS: BP 143/94
--- NOTE | 2018-03-05 19:43 | PHYS DOC ---
Adult General Chief Complaint Chief Complaint laceration [facility] HPI 42 years old female presented emergency department with laceration on the left side of the face, about 2 cm no active bleeding no pain Review of Systems Review of Systems Constitutional: Denies fever or chills [] Eyes: Denies change in visual acuity, redness, or eye pain [] HENT: Denies nasal congestion or sore throat [] Respiratory: Denies cough or shortness of breath [] Cardiovascular: No additional information not addressed in HPI [] GI: Denies abdominal pain, nausea, vomiting, bloody stools or diarrhea [] : Denies dysuria or hematuria [] Musculoskeletal: Denies back pain or joint pain [] Integument: Laceration to the face Neurologic: Denies headache, focal weakness or sensory changes [] Endocrine: Denies polyuria or polydipsia [] All other systems were reviewed and found to be within normal limits, except as documented in this note. Allergies Allergies Allergies Coded Allergies Type Severity Reaction Last Updated Verified Penicillins Allergy Intermediate HIVES 09/24/14 Yes Physical Exam Physical Exam Constitutional: Well developed, well nourished, no acute distress, non-toxic appearance. [] HENT: Normocephalic, atraumatic, bilateral external ears normal, oropharynx moist, no oral exudates, nose normal. [] Eyes: PERRLA, EOMI, conjunctiva normal, no discharge. [] Neck: Normal range of motion, no tenderness, supple, no stridor. [] Cardiovascular:Heart rate regular rhythm, no murmur [] Lungs & Thorax: Bilateral breath sounds clear to auscultation [] Abdomen: Bowel sounds normal, soft, no tenderness, no masses, no pulsatile masses. [] Skin: 2 cm laceration to the forehead on the left side no active bleeding Back: No tenderness, no CVA tenderness. [] Extremities: No tenderness, no cyanosis, no clubbing, ROM intact, no edema. [] Neurologic: Alert and oriented X 3, normal motor function, normal sensory function, no focal deficits noted. [] Psychologic: Affect normal, judgement normal, mood normal. [] Current Patient Data Vital Signs Vital Signs Date Time Temp Pulse Resp B/P (MAP) Pulse Ox O2 Delivery O2 Flow Rate FiO2 03/05/18 19:02 97.6 95 22 95 Room Air EKG EKG [] Radiology/Procedures Radiology/Procedures [] Course & Med Decision Making Course & Med Decision Making Routine prep to the wound, lidocaine 1% used for local anesthesia, irrigated no foreign body, and nylon 5. or used, 2 sutures one disclosed no active bleeding [] Final Impression Final Impression [] Problems: (1) Facial laceration Qualifiers: Qualified Codes: S01.81XA - Laceration without foreign body of other part of head, initial encounter Dragon Disclaimer Dragon Disclaimer This electronic medical record was generated, in whole or in part, using a voice recognition dictation system. JULIETTE ALFRED MD Mar 05, 2018 19:43
== END 2018-03-05 19:58 | disposition home or self-care (01) ==
LOC: ER 18:45
DX: S01.81XA Laceration without foreign body of other part of head, initial encounter (principal); Z88.0 Allergy status to penicillin; X58.XXXA Exposure to other specified factors, initial encounter; Y93.89 Activity, other specified; Y92.89 Other specified places as the place of occurrence of the external cause; Y99.8 Other external cause status
CPT/HCPCS: 12011; 99283

== ENCOUNTER 2018-06-06 11:57 | Emergency (ER) | payer SELFPAY ==
[~2018-06-06] VITALS: Ht 157.5 cm; Wt 54.6 kg
[2018-06-06 12:00] VITALS: BP 133/86
[2018-06-06] MEDS ORDERED: ONDANSETRON ODT 4 MG TAB.RAPDIS ONE (12:12)
--- NOTE | 2018-06-06 12:43 | PHYS DOC ---
Past History Past Medical History: Anxiety Additional Past Medical Histor: patient reports a history of ulcerative colitis Past Surgical History: Other Additional Past Surgical Histo: hernia Smoking: Less than 1pk/day Alcohol Use: Occasionally Additional Alcohol Information: WITH PAST HX OF HEAVY DRINKING Drug Use: None Adult General Chief Complaint Chief Complaint: MECHANICAL FALL HPI HPI 43-year-old female presents EMS with altered mental status after fall. The fall was 3 days ago. It was a ground-level fall. She states that she tripped over her dog and hit the back of her head. There was some bleeding of the scalp that has stopped. The patient has been feeling very nervous and "off" since that time. She went to a liquor store earlier today and the people were very concerned about her seeming off balance and jittery. Someone called EMS and she agreed to come. At this time the patient denies any pain, but states that she feels slow and having difficulty focusing on tasks. She does have a strong drinking history of alcohol. She states she is only an occasional drinker at this time. Her last drink was 2 days ago. She tells me that she is very nervous. Review of Systems Review of Systems Constitutional: Denies fever or chills [] Eyes: Denies change in visual acuity, redness, or eye pain [] HENT: Denies nasal congestion or sore throat [] Respiratory: Denies cough or shortness of breath [] Cardiovascular: No additional information not addressed in HPI [] GI: Denies abdominal pain, nausea, vomiting, bloody stools or diarrhea [] : Denies dysuria or hematuria [] Musculoskeletal: Denies back pain or joint pain [] Integument: Denies rash or skin lesions [] Neurologic: Difficulty concentrating. Nervous. Denies headache, focal weakness or sensory changes [] Endocrine: Denies polyuria or polydipsia [] All other systems were reviewed and found to be within normal limits, except as documented in this note. Current Medications Current Medications Current Medications Medications (Trade) Dose Ordered Sig/Shelley Start Time Stop Time Status Last Admin Dose Admin Multivitamins/ Minerals 10 ml/ Folic Acid 1 mg/ Thiamine HCl 100 mg/Sodium Chloride 1,011.1 ml @ 1,000 mls/ hr 1X ONCE 06/06/18 12:45 06/06/18 13:45 Ondansetron HCl (Zofran Odt) 4 mg STK-MED ONCE 06/06/18 12:12 06/06/18 12:13 DC Allergies Allergies Allergies Coded Allergies Type Severity Reaction Last Updated Verified Penicillins Allergy Intermediate HIVES 09/24/14 Yes Physical Exam Physical Exam Constitutional: Well developed, well nourished, no acute distress, non-toxic appearance. [] HENT: Normocephalic, dry blood on posterior scalp, bilateral external ears normal, oropharynx moist, no oral exudates, nose normal. [] Eyes: PERRLA, EOMI, conjunctiva normal, no discharge. [] Neck: Normal range of motion, no tenderness, supple, no stridor. [] Cardiovascular:Heart rate regular rhythm, no murmur [] Lungs & Thorax: Bilateral breath sounds clear to auscultation [] Abdomen: Bowel sounds normal, soft, no tenderness, no masses, no pulsatile masses. [] Skin: Warm, dry, no erythema, no rash. [] Back: No tenderness, no CVA tenderness. [] Extremities: No tenderness, no cyanosis, no clubbing, ROM intact, no edema. [] Neurologic: Alert and oriented X 3, normal motor function, normal sensory function, no focal deficits noted. [] Psychologic: Jittery, tremulous, very anxious.[] Current Patient Data Vital Signs Vital Signs Date Time Temp Pulse Resp B/P (MAP) Pulse Ox O2 Delivery O2 Flow Rate FiO2 06/06/18 12:00 98.5 114 16 100 Room Air EKG EKG [] Radiology/Procedures Radiology/Procedures [] Impressions: CT HEAD WO CONTRAST Date: 06/06/2018 12:19 PM Clinical Indication: Recent fall, headache, dizziness Comparison: None. Technique: 5 mm axial tomographic images were obtained of the head without contrast. These were viewed on brain and bone windows. CT HEAD FINDINGS: The brain parenchyma is normal in attenuation. No intra- or extra-axial mass or fluid collection. No acute hemorrhage. The ventricles are normal in size, shape, and morphology. The moura-white matter junction is normal. The basilar cisterns are patent. Very small area of soft tissue density in the high left parietal scalp (image 26). No depressed calvarial fracture. The paranasal sinuses are clear. The orbits are normal. The globes are intact. The mastoid air cells are clear. No aggressive osseous lesion or fracture. IMPRESSION: 1. No acute intracranial process. 2. Very small area of soft tissue density in the high left parietal scalp. This could relate to a small hematoma given patient's history of fall. No depressed calvarial fracture. Electronically signed by: Matthew Damon MD (06/06/2018 12:40 PM) [facility] DICTATED AND SIGNED BY: MATTHEW DAMON MD DATE: 06/06/18 1240 CC: JOHNATHON ISBELL DO; CAMERON PENNY MD ~ Course & Med Decision Making Course & Med Decision Making Pertinent Labs and Imaging studies reviewed. (See chart for details) Patient's head CT is unremarkable. Prior to the patient's workup being complete , she signed out AMA. [] Dragon Disclaimer Dragon Disclaimer This electronic medical record was generated, in whole or in part, using a voice recognition dictation system. Departure Departure: Impression: Primary Impression: Fall from standing Disposition: 09 ADMITTED INPATIENT Condition: GUARDED Referrals: CAMERON PENNY MD (PCP) Problem Qualifiers Primary Impression: Fall from standing Encounter type: initial encounter Qualified Codes: W19.XXXA - Unspecified fall, initial encounter JOHNATHON ISBELL DO Jun 06, 2018 12:43
[2018-06-06] MEDS ORDERED: MVI, ADULT NO.4 WITH VIT K 10 ML, FOLIC ACID SYRINGE for ER 1 MG, THIAMINE INJ 100 MG i... IV ONE ×4 (12:45)
[2018-06-06 13:05] LABS: BASO % 1 % (0-3); EOS % 0 % (0-3); HEMATOCRIT 36.4 % (36.0-47.0); HEMOGLOBIN 12.8 g/dL (12.0-15.5); LYMPH # 0.4 x10^3/uL (1.0-4.8); LYMPH % 5 % (24-48); MEAN CORPUSCULAR HEMOGLOBIN 37 pg (25-35); MEAN CORPUSCULAR HGB CONC 35 g/dL (31-37); MEAN CORPUSCULAR VOLUME 105 fL (79-100); MONO # 0.5 x10^3/uL (0.0-1.1); MONO % 7 % (0-9); NEUT # 6.1 x10^3uL (1.8-7.7); NEUT % 88 % (31-73); PLATELET COUNT 98 x10^3/uL (140-400); RED BLOOD COUNT 3.47 x10^6/uL (3.50-5.40); RED CELL DISTRIBUTION WIDTH 13.9 % (11.5-14.5)
[2018-06-06 13:15] LABS: AMPHETAMINE/METHAMPHETAMINE NEG (NEG); BARBITURATES NEG (NEG); BENZODIAZEPINES NEG (NEG); CANNABINOIDS NEG (NEG); COCAINE NEG (NEG); METHADONE NEG (NEG); OPIATES NEG (NEG); PHENCYCLIDINE NEG (NEG)
[2018-06-06 13:26] LABS: BILIRUBIN,URINE NEG (NEG); CLARITY,URINE CLOUDY; COLOR,URINE STRAW; GLUCOSE,URINE NEG (NEG)
[2018-06-06 13:27] LABS: BACTERIA,URINE FEW /HPF (0-FEW); NITRITE,URINE NEG (NEG); UROBILINOGEN,URINE 0.2 mg/dL (0.2 mg/dL)
[2018-06-06 13:28] LABS: SQUAMOUS EPITHELIAL CELL,UR FEW /LPF
[2018-06-06 13:41] LABS: HYPOCHROMIA SLIGHT; PLT ESTIMATE DECREASED (ADEQUATE)
[2018-06-06 13:42] LABS: POLYCHROMASIA SLIGHT
[2018-06-06] MEDS ORDERED: FOSPHENYTOIN IV ONE (14:20)
[2018-06-06] MEDS ORDERED: NORMAL SALINE IV ONE (14:20)
[2018-06-06] MEDS ORDERED: PHEN100C PO (15:02)
[2018-06-12] MEDS ORDERED: PHEN100C4 PO (09:35)
[2018-06-12] MEDS ORDERED: MIRT15TA3 PO (09:35)
[2018-06-12] MEDS ORDERED: LORA0.5T PO (09:35)
== END 2018-06-06 13:17 | disposition left against medical advice (07) ==
LOC: ER 11:57
DX: R41.82 Altered mental status, unspecified (principal); R45.0 Nervousness; F41.9 Anxiety disorder, unspecified; F17.200 Nicotine dependence, unspecified, uncomplicated; Z88.0 Allergy status to penicillin; W18.39XA Other fall on same level, initial encounter; Y93.89 Activity, other specified; Y92.89 Other specified places as the place of occurrence of the external cause; Y99.8 Other external cause status
CPT/HCPCS: 36415; 70450; 80307; 81001; 85025; 96374; 99284-25; J7030

== ENCOUNTER 2018-06-06 13:25 | Emergency (ER) | payer SELFPAY ==
[~2018-06-06] VITALS: Ht 157.5 cm; Wt 54.6 kg
--- NOTE | 2018-06-06 14:18 | PHYS DOC ---
Past History Past Medical History: Anxiety Additional Past Medical Histor: patient reports a history of ulcerative colitis Past Surgical History: Other Additional Past Surgical Histo: hernia Smoking: Less than 1pk/day Alcohol Use: Occasionally Drug Use: None Adult General Chief Complaint Chief Complaint: SEIZURE HPI HPI 43-year-old female returns emergency room with seizure. The patient signed out AMA before her workup was complete. While she was in the waiting room waiting for a friend pick her up, she began to have a seizure. Her body stiffened and she had small tonic-clonic movements of her upper and lower extremities. She began to drool out of her mouth and had loss of bladder. This lasted for under 2 minutes. She was then post ictal for another 10-15 minutes. When asked the patient if she is ever had a seizure before, she says no. Her previous workup showed her to be positive for alcohol, but no other drugs. Her head CT was negative. Review of Systems Review of Systems Constitutional: Denies fever or chills [] Eyes: Denies change in visual acuity, redness, or eye pain [] HENT: Denies nasal congestion or sore throat [] Respiratory: Denies cough or shortness of breath [] Cardiovascular: No additional information not addressed in HPI [] GI: Denies abdominal pain, nausea, vomiting, bloody stools or diarrhea [] : Denies dysuria or hematuria [] Musculoskeletal: Denies back pain or joint pain [] Integument: Denies rash or skin lesions [] Neurologic: Seizure. Denies headache, focal weakness or sensory changes [] Endocrine: Denies polyuria or polydipsia [] All other systems were reviewed and found to be within normal limits, except as documented in this note. Allergies Allergies Allergies Coded Allergies Type Severity Reaction Last Updated Verified Penicillins Allergy Intermediate HIVES 09/24/14 Yes Physical Exam Physical Exam Constitutional: Well developed, well nourished, no acute distress, non-toxic appearance. [] HENT: Normocephalic, atraumatic, bilateral external ears normal, oropharynx moist, no oral exudates, nose normal. [] Eyes: PERRLA, EOMI, conjunctiva normal, no discharge. [] Neck: Normal range of motion, no tenderness, supple, no stridor. [] Cardiovascular:Heart rate regular rhythm, no murmur [] Lungs & Thorax: Bilateral breath sounds clear to auscultation [] Abdomen: Bowel sounds normal, soft, no tenderness, no masses, no pulsatile masses. [] Skin: Small area of dried blood on the posterior scalp[] Back: No tenderness, no CVA tenderness. [] Extremities: No tenderness, no cyanosis, no clubbing, ROM intact, no edema. [] Neurologic: Alert and oriented X 3, normal motor function, normal sensory function, no focal deficits noted. [] Psychologic: Affect normal, judgement normal, mood normal. [] EKG EKG [] Radiology/Procedures Radiology/Procedures [] Course & Med Decision Making Course & Med Decision Making Pertinent Labs and Imaging studies reviewed. (See chart for details) Even though the patient seizing and stopped by the time we get medication to her , we still gave 2 mg of Ativan. I will give her a loading dose of 50 mg/kg of fosphenytoin. I discussed the patient with Dr. Zapata and he believes the patient could have the option of being transferred to [facility] for an EEG today or we could place her on phenytoin 300 mg ER daily until she scheduled as an outpatient EEG next week. I discussed this with the patient and she would like to be discharged on medication and have a follow-up EEG in the office. The patient is stable for discharge at this time. [] Dragon Disclaimer Dragon Disclaimer This electronic medical record was generated, in whole or in part, using a voice recognition dictation system. Departure Departure: Impression: Primary Impression: Seizure Disposition: 01 HOME, SELF-CARE Condition: IMPROVED Referrals: CAMERON PENNY MD (PCP) Patient Instructions: Seizure, Adult, Tasc-kr-Esul Scripts Phenytoin Sodium Extended (DILANTIN) 100 Mg Capsule 1 CAP PO TID for seizure, #90 CAP Prov: JOHNATHON ISBELL DO 06/06/18 JOHNATHON ISBELL DO Jun 06, 2018 14:18
[2018-06-06 14:25] LABS: BASO % 0 % (0-3); EOS % 0 % (0-3); HEMATOCRIT 35.6 % (36.0-47.0); HEMOGLOBIN 12.2 g/dL (12.0-15.5); LYMPH # 0.4 x10^3/uL (1.0-4.8); LYMPH % 6 % (24-48); MEAN CORPUSCULAR HEMOGLOBIN 37 pg (25-35); MEAN CORPUSCULAR HGB CONC 34 g/dL (31-37); MEAN CORPUSCULAR VOLUME 107 fL (79-100); MONO # 0.5 x10^3/uL (0.0-1.1); MONO % 8 % (0-9); NEUT # 5.4 x10^3uL (1.8-7.7); NEUT % 85 % (31-73); PLATELET COUNT 90 x10^3/uL (140-400); RED BLOOD COUNT 3.34 x10^6/uL (3.50-5.40); RED CELL DISTRIBUTION WIDTH 14.4 % (11.5-14.5); WHITE BLOOD COUNT 6.3 x10^3/uL (4.0-11.0)
[2018-06-06 14:37] LABS: ALBUMIN 3.7 g/dL (3.4-5.0); CALCIUM 8.3 mg/dL (8.5-10.1); CREATININE 0.9 mg/dL (0.6-1.0); GFR 68.3; POTASSIUM 3.2 mmol/L (3.5-5.1); TOTAL BILIRUBIN 1.2 mg/dL (0.2-1.0); TOTAL PROTEIN 7.5 g/dL (6.4-8.2)
[2018-06-06] MEDS ORDERED: FOSPHENYTOIN IV ONE (14:45)
[2018-06-06] MEDS ORDERED: NORMAL SALINE IV ONE (14:45)
[2018-06-06] MEDS ORDERED: PHEN100C PO (15:02)
[2018-06-06 15:08] VITALS: BP 152/92
[2018-06-12] MEDS ORDERED: MIRT15TA3 PO (09:35)
[2018-06-12] MEDS ORDERED: LORA0.5T PO (09:35)
[2018-06-12] MEDS ORDERED: PHEN100C4 PO (09:35)
== END 2018-06-06 15:25 | disposition home or self-care (01) ==
LOC: ER 13:25
DX: R56.9 Unspecified convulsions (principal); F41.9 Anxiety disorder, unspecified; F17.200 Nicotine dependence, unspecified, uncomplicated; Z88.0 Allergy status to penicillin
CPT/HCPCS: 36415; 80053; 85025; 96374; 96375; 99283; J2060; Q2009

== ENCOUNTER 2018-06-11 05:12 | Inpatient (IN) | payer SELFPAY ==
[~2018-06-11] VITALS: Ht 157.5 cm; Wt 59.0 kg
[~2018-06-11 05:12] MED LIST changes: +PHEN100C PO
--- NOTE | 2018-06-11 05:22 | ED.ADGEN ---
Past History Past Medical History: Anxiety, GERD, Seizure, Other Additional Past Medical Histor: patient reports a history of ulcerative colitis (RAMSEY ACEVEDO MD) Past Medical History: Seizure (PRIYANKA JULES DO) Past Surgical History: Other Additional Past Surgical Histo: hernia (RAMSEY ACEVEDO MD) Smoking: Less than 1pk/day Alcohol Use: Occasionally Drug Use: None (RAMSEY ACEVEDO MD) Alcohol Use: Sober (PRIYANKA JULES DO) Adult General Chief Complaint Chief Complaint ".. I feel like I am going to have another seizure..." (RAMSEY ACEVEDO MD) HPI HPI Patient is a 43 year old female who presents with above hx and complaints of anxiety, nausea, vomiting, dizzy, malaise . Pt. recently had head injury and episodes of tonic clonic seizures. Pt. has follow up at [facility] for EEG and with neurology. Pt. may have missed dosage of Dilantin which she has been taking 100 three times a day. Pt. does have hx of past anxiety disorder and depression. Her significant other who advises she only knows her taking 1 dose of 100 mg of Dilantin yesterday at 5:00 pm. Patient currently very anxious and hyperventilating. Pt. report recent attempts at sobriety, nNo history of prior seizure disorder with stopping alcohol usage. The patient has had a chronic alcohol use of at least a 6 pack per day for months. (RAMSEY ACEVEDO MD) Review of Systems Review of Systems Constitutional: Denies fever or chills [] Eyes: Denies change in visual acuity, redness, or eye pain [] HENT: Denies nasal congestion or sore throat [] Respiratory: Denies cough or shortness of breath [] Cardiovascular: No additional information not addressed in HPI [] GI: Denies abdominal pain, nausea, vomiting, bloody stools or diarrhea [] : history of dysuria or hematuria [] Musculoskeletal: Denies back pain or joint pain [] Integument: Denies rash or skin lesions [] Neurologic: Complaints of headache, dizzy, denies focal weakness or sensory changes [] Endocrine: Denies polyuria or polydipsia [] All other systems were reviewed and found to be within normal limits, except as documented in this note. (RAMSEY ACEVEDO MD) Family History Family History Noncontributory (RAMSEY ACEVEDO MD) Current Medications Current Medications Current Medications Medications (Trade) Dose Ordered Sig/Shelley Start Time Stop Time Status Last Admin Dose Admin Lactated Ringer's 1,000 ml @ 1,000 mls/hr Q1H 06/11/18 06:00 06/11/18 06:59 06/11/18 05:56 1,000 MLS/HR Lorazepam (Ativan) 2 mg 1X ONCE 06/11/18 06:00 06/11/18 06:01 DC 06/11/18 05:55 2 MG Multivitamins/ Minerals 10 ml/ Folic Acid 1 mg/ Thiamine HCl 100 mg/Lactated Ringer's 1,011.2 ml @ 1,011.2 mls/hr 1X ONCE 06/11/18 07:00 06/11/18 07:59 Ondansetron HCl (Zofran) 8 mg 1X ONCE 06/11/18 06:00 06/11/18 06:01 DC 06/11/18 05:55 8 MG (RAMSEY ACEVEDO MD) Current Medications Current Medications Medications (Trade) Dose Ordered Sig/Shelley Start Time Stop Time Status Last Admin Dose Admin Lactated Ringer's 1,000 ml @ 1,000 mls/hr Q1H 06/11/18 06:00 06/11/18 07:00 DC 06/11/18 05:56 1,000 MLS/HR Lorazepam (Ativan) 2 mg 1X ONCE 06/11/18 06:00 06/11/18 06:01 DC 06/11/18 05:55 2 MG Multivitamins/ Minerals 10 ml/ Folic Acid 1 mg/ Thiamine HCl 100 mg/Lactated Ringer's 1,011.2 ml @ 1,011.2 mls/hr 1X ONCE 06/11/18 07:00 06/11/18 07:59 Cancel Multivitamins/ Minerals 10 ml/ Folic Acid 1 mg/ Thiamine HCl 100 mg/Magnesium Sulfate 4 gm/ Sodium Chloride 1,019.2 ml @ 250 mls/ hr 1X ONCE 06/11/18 07:30 06/11/18 11:34 Ondansetron HCl (Zofran) 8 mg 1X ONCE 06/11/18 06:00 06/11/18 06:01 DC 06/11/18 05:55 8 MG Potassium Chloride (Klor-Con) 40 meq 1X ONCE 06/11/18 07:30 06/11/18 07:31 (PRIYANKA JULES DO) Allergies Allergies Allergies Coded Allergies Type Severity Reaction Last Updated Verified Penicillins Allergy Intermediate HIVES 09/24/14 Yes (RAMSEY ACEVEDO MD) Allergies Allergies Coded Allergies Type Severity Reaction Last Updated Verified Penicillins Allergy Intermediate HIVES 09/24/14 Yes (PRIYANKA JULES DO) Physical Exam Physical Exam Constitutional: in acute emotional distress, non-toxic appearance. [] HENT: Normocephalic, atraumatic, bilateral external ears normal, oropharynx moist, no oral exudates, nose normal. [] Eyes: PERRLA, EOMI, conjunctiva normal, no discharge. notable terminal nystagmus Neck: Normal range of motion, no tenderness, supple, no stridor. [] Cardiovascular:Tachycardia Heart rate regular rhythm, no murmur [] Lungs & Thorax: Bilateral breath sounds equal at apex with scattered wheezes on auscultation [] Abdomen: Bowel sounds normal, soft, no tenderness, no masses, no pulsatile masses. [] declines pelvic exam at this time. Skin: Warm, dry, no erythema, no rash. [Has] multiple areas of contusion at various degrees of healing- knees, elbows ect. Back: No tenderness, no CVA tenderness. [] Extremities: No tenderness, no cyanosis, no clubbing, ROM intact, no edema. [] Neurologic: Alert and oriented X 3, normal motor function, normal sensory function, no focal deficits noted. []DTRs +2 patella and brachial. Psychologic: Affect very anxious, judgement normal, mood normal. [] (RAMSEY ACEVEDO MD) Current Patient Data Lab Results Laboratory Tests Test 06/11/18 06:25 POC Urine HCG, Qualitative hcg negative (Negative) (RAMSEY ACEVEDO MD) Lab Results Laboratory Tests Test 06/11/18 05:50 06/11/18 06:15 06/11/18 06:25 White Blood Count 6.5 x10^3/uL (4.0-11.0) Red Blood Count 3.85 x10^6/uL (3.50-5.40) Hemoglobin 14.2 g/dL (12.0-15.5) Hematocrit 40.6 % (36.0-47.0) Mean Corpuscular Volume 106 fL (79-100) H Mean Corpuscular Hemoglobin 37 pg (25-35) H Mean Corpuscular Hemoglobin Concent 35 g/dL (31-37) Red Cell Distribution Width 14.2 % (11.5-14.5) Platelet Count 148 x10^3/uL (140-400) Neutrophils (%) (Auto) 75 % (31-73) H Lymphocytes (%) (Auto) 16 % (24-48) L Monocytes (%) (Auto) 9 % (0-9) Eosinophils (%) (Auto) 0 % (0-3) Basophils (%) (Auto) 1 % (0-3) Neutrophils # (Auto) 4.9 x10^3uL (1.8-7.7) Lymphocytes # (Auto) 1.0 x10^3/uL (1.0-4.8) Monocytes # (Auto) 0.6 x10^3/uL (0.0-1.1) Eosinophils # (Auto) 0.0 x10^3/uL (0.0-0.7) Basophils # (Auto) 0.0 x10^3/uL (0.0-0.2) Prothrombin Time < 9.3 SEC (9.4-11.4) L Prothrombin Time INR 0.9 (0.9-1.1) PTT 23 SEC (23-33) Maternal Serum HCG Beta Subunit 1 mIU/mL (0-6) Sodium Level 138 mmol/L (136-145) Potassium Level 2.8 mmol/L (3.5-5.1) *L Chloride Level 98 mmol/L (98-107) Carbon Dioxide Level 19 mmol/L (21-32) L Anion Gap 21 (6-14) H Blood Urea Nitrogen 5 mg/dL (7-20) L Creatinine 0.7 mg/dL (0.6-1.0) Estimated GFR (Cockcroft-Gault) 91.3 Glucose Level 75 mg/dL (70-99) Calcium Level 8.7 mg/dL (8.5-10.1) Magnesium Level 1.0 mg/dL (1.8-2.4) L Total Bilirubin 0.5 mg/dL (0.2-1.0) Direct Bilirubin 0.2 mg/dL (0.0-0.2) Aspartate Amino Transferase (AST) 60 U/L (15-37) H Alanine Aminotransferase (ALT) 44 U/L (14-59) Alkaline Phosphatase 71 U/L (46-116) Creatine Kinase 550 U/L (26-192) H Troponin I Quantitative < 0.017 ng/mL (0-0.055) VQ-Vft-N-Type Natriuretic Peptide 18 pg/mL (0-124) Total Protein 7.6 g/dL (6.4-8.2) Albumin 3.8 g/dL (3.4-5.0) Lipase 462 U/L (73-393) H Phenytoin (Dilantin) Level 6.0 mcg/mL (10.0-20.0) L Phenytoin Last Dose Date Pending Phenytoin Last Dose Time Pending Ethyl Alcohol Level 33 mg/dL (0-10) H Urine Collection Type Unknown Urine Color Yellow Urine Clarity Hazy Urine pH 7.0 Urine Specific [place] 1.015 Urine Protein Neg (NEG-TRACE) Urine Glucose (UA) Neg mg/dL (NEG) Urine Ketones (Stick) Trace mg/dL (NEG) Urine Blood Neg (NEG) Urine Nitrite Neg (NEG) Urine Bilirubin Neg (NEG) Urine Urobilinogen Dipstick 0.2 mg/dL (0.2 mg/dL) Urine Leukocyte Esterase Trace (NEG) Urine RBC 1-2 /HPF (0-2) Urine WBC >40 /HPF (0-4) Urine Squamous Epithelial Cells Mod /LPF Urine Bacteria Mod /HPF (0-FEW) Urine Opiates Screen Neg (NEG) Urine Methadone Screen Neg (NEG) Urine Barbiturates Neg (NEG) Urine Phencyclidine Screen Neg (NEG) Urine Amphetamine/Methamphetamine Neg (NEG) Urine Benzodiazepines Screen Neg (NEG) Urine Cocaine Screen Neg (NEG) Urine Cannabinoids Screen Neg (NEG) Urine Ethyl Alcohol Pos (NEG) POC Urine HCG, Qualitative hcg negative (Negative) (PRIYANKA JULES DO) EKG EKG [] (RAMSEY ACEVEDO MD) EKG EKG shows a sinus rhythm at 93 bpm, normal axis, QTC of 465 ms, incomplete right bundle-branch block, no ST elevations, interpreted by me at 0650, and compared with EKG of 09/28/2015, there is some flattening of the T waves, especially in lead 3, no U waves are present. (PRIYANKA JULES DO) Radiology/Procedures Radiology/Procedures [] (RAMSEY ACEVEDO MD) Radiology/Procedures EXAM: CT Head without IV contrast CLINICAL HISTORY: SEIZURE, FELL AND HIT BACK OF HEAD COMPARISON: None. TECHNIQUE: Routine CT of the head without contrast. Soft tissues and bone windows were reviewed. PQRS compliance statement - One or more of the following individualized dose reduction techniques were utilized for this study: 1. Automated exposure control 2. Adjustment of the mA and/or kV according to patient size 3. Use of iterative reconstruction technique FINDINGS: There is no evidence of hemorrhage, mass or extra-axial fluid collection. Garza-white differentiation is maintained with no evidence of edema. There is no mass effect or shift of the intracranial structures. The ventricles, basilar cisterns and cortical sulci are normal in size and configuration for the patients stated age. The cerebellum and brainstem are unremarkable. The calvarium demonstrates no evidence of fracture or focal lesion. There is normal aeration of the visualized paranasal sinuses and mastoid air cells. The visualized portions of the orbits are normal. IMPRESSION: No evidence for acute intracranial process. Chest x-ray did not show any acute features (PRIYANKA JULES DO) Course & Med Decision Making Course & Med Decision Making Pertinent Labs and Imaging studies reviewed. (See chart for details) Check out to Dr. Jules at shift change. He will make disposition. (RAMSEY ACEVEDO MD) Course & Med Decision Making Received patient at 6 AM. Agree with previous H&P. Patient reports that she has not had any alcohol for greater than 24 hours. Concerned given that her alcohol level is 33 on testing today. Patient is being admitted for hypokalemia and hypomagnesemia. Started replacement while in the emergency department. (PRIYANKA JULES DO) Final Impression Final Impression 1. Hx. Tonic Clonic Seizures 2. Recently - sobriety- after chronic alcohol use 3. Anxiety Disorder 4. Hx. Ulcer Colitis (RAMSEY ACEVEDO MD) Final Impression Alcohol use and abuse Hypokalemia Hypomagnesemia (PRIYANKA JULES DO) Dragon Disclaimer Dragon Disclaimer This electronic medical record was generated, in whole or in part, using a voice recognition dictation system. (RAMSEY ACEVEDO MD) RAMSEY ACEVEDO MD Jun 11, 2018 05:22 PRIYANKA JULES DO Jun 11, 2018 06:52
[2018-06-11] MEDS ORDERED: IV RINGERS SOLUTION,LACTATED 1,000 ML IV SCH (06:00)
[2018-06-11] MEDS ORDERED: ONDANSETRON PF 4 MG/2 ML VIAL. IV ONE (06:00)
[2018-06-11 06:33] LABS: BASO % 1 % (0-3); EOS % 0 % (0-3); HEMATOCRIT 40.6 % (36.0-47.0); HEMOGLOBIN 14.2 g/dL (12.0-15.5); LYMPH % 16 % (24-48); MEAN CORPUSCULAR HEMOGLOBIN 37 pg (25-35); MEAN CORPUSCULAR HGB CONC 35 g/dL (31-37); MEAN CORPUSCULAR VOLUME 106 fL (79-100); MONO # 0.6 x10^3/uL (0.0-1.1); MONO % 9 % (0-9); NEUT # 4.9 x10^3uL (1.8-7.7); NEUT % 75 % (31-73); PLATELET COUNT 148 x10^3/uL (140-400); RED BLOOD COUNT 3.85 x10^6/uL (3.50-5.40); RED CELL DISTRIBUTION WIDTH 14.2 % (11.5-14.5); WHITE BLOOD COUNT 6.5 x10^3/uL (4.0-11.0)
[2018-06-11 06:41] LABS: BARBITURATES NEG (NEG); BENZODIAZEPINES NEG (NEG); CANNABINOIDS NEG (NEG); COCAINE NEG (NEG); METHADONE NEG (NEG); OPIATES NEG (NEG); PHENCYCLIDINE NEG (NEG)
--- NOTE | 2018-06-11 06:41 | RAD ---
EXAM: CT Head without IV contrast CLINICAL HISTORY: SEIZURE, FELL AND HIT BACK OF HEAD COMPARISON: None. TECHNIQUE: Routine CT of the head without contrast. Soft tissues and bone windows were reviewed. RS compliance statement - One or more of the following individualized dose reduction techniques were utilized for this study: 1. Automated exposure control 2. Adjustment of the mA and/or kV according to patient size 3. Use of iterative reconstruction technique FINDINGS: There is no evidence of hemorrhage, mass or extra-axial fluid collection. Garza-white differentiation is maintained with no evidence of edema. There is no mass effect or shift of the intracranial structures. The ventricles, basilar cisterns and cortical sulci are normal in size and configuration for the patients stated age. The cerebellum and brainstem are unremarkable. The calvarium demonstrates no evidence of fracture or focal lesion. There is normal aeration of the visualized paranasal sinuses and mastoid air cells. The visualized portions of the orbits are normal. IMPRESSION: No evidence for acute intracranial process. Electronically signed by: Ian Carrillo MD (06/11/2018 6:38 AM) [facility]
[2018-06-11 06:46] LABS: BACTERIA,URINE MOD /HPF (0-FEW); BILIRUBIN,URINE NEG (NEG); CLARITY,URINE HAZY; COLOR,URINE YELLOW; GLUCOSE,URINE NEG (NEG); NITRITE,URINE NEG (NEG); UROBILINOGEN,URINE 0.2 mg/dL (0.2 mg/dL); WBC,URINE >40 /HPF (0-4)
[2018-06-11 06:47] LABS: SQUAMOUS EPITHELIAL CELL,UR MOD /LPF
[2018-06-11 06:49] LABS: AMPHETAMINE/METHAMPHETAMINE NEG (NEG)
[2018-06-11 06:56] LABS: ALBUMIN 3.8 g/dL (3.4-5.0); ALK PHOS 71 U/L (46-116); ALT (SGPT) 44 U/L (14-59); ANION GAP 21 (6-14); AST (SGOT) 60 U/L (15-37); BLOOD UREA NITROGEN 5 mg/dL (7-20); CALCIUM 8.7 mg/dL (8.5-10.1); CARBON DIOXIDE 19 mmol/L (21-32); CHLORIDE 98 mmol/L (98-107); CREATININE 0.7 mg/dL (0.6-1.0); DIRECT BILIRUBIN 0.2 mg/dL (0.0-0.2); GFR 91.3; GLUCOSE 75 mg/dL (70-99); LIPASE 462 U/L (73-393); SODIUM 138 mmol/L (136-145); TOTAL BILIRUBIN 0.5 mg/dL (0.2-1.0); TOTAL PROTEIN 7.6 g/dL (6.4-8.2)
[2018-06-11 06:57] LABS: POTASSIUM 2.8 mmol/L (3.5-5.1)
--- NOTE | 2018-06-11 06:57 | EKG ---
[address] [address] Test Date: 2018-06-11 Test Time: 06:49:29 Pat Name: ZAK MANZANARES Department: Room: Gender: F [employer]: : 1975 Requested By: RAMSEY ACEVEDO Order Number: [id number] Reading MD: Irwin López MD Measurements Intervals Lawrence Rate: 93 P: 36 GA: 180 QRS: 50 QRSD: 80 T: 24 QT: 372 QTc: 465 Interpretive Statements SINUS RHYTHM NON-SPECIFIC ST/T CHANGES Electronically Signed On 06-22-2018 10:20:18 CDT by Irwin López MD
[2018-06-11] MEDS ORDERED: MVI, ADULT NO.4 WITH VIT K 10 ML, FOLIC ACID SYRINGE for ER 1 MG, THIAMINE INJ 100 MG i... IV ONE ×4 (07:00)
[2018-06-11] MEDS ORDERED: POTASSIUM CHLORIDE 20 MEQ TABLET.ER. PO ONE (07:30)
[2018-06-11] MEDS ORDERED: MVI, ADULT NO.4 WITH VIT K 10 ML, FOLIC ACID SYRINGE for ER 1 MG, THIAMINE INJ 100 MG, ... IV ONE ×5 (07:30)
[2018-06-11] MEDS ORDERED: ACETAMINOPHEN 325 MG TABLET PO PRN (07:45)
[2018-06-11 07:47] VITALS: BP 138/92
--- NOTE | 2018-06-11 08:05 | RAD ---
Chest radiograph 06/11/2018 5:24 AM INDICATION: Seizure COMPARISON: September 28, 2015 TECHNIQUE: Portable upright frontal view of the chest is provided. FINDINGS: The cardiomediastinal silhouette is within normal limits. There are no pleural effusions. There is no pulmonary vascular congestion. There is no pneumothorax. The lungs are clear. Few scattered calcified granulomas appear stable. No significant osseous abnormality is identified. IMPRESSION: No acute cardiopulmonary process. Electronically signed by: Maisha White MD (06/11/2018 8:03 AM) [id number]
[2018-06-11] MEDS ORDERED: MULT-735 PO (08:29)
[2018-06-11] MEDS ORDERED: PHEN100C4 PO (08:29)
[2018-06-11] MEDS ORDERED: LORazepam 1 MG TABLET PO PRN ×2 (09:00)
[2018-06-11] MEDS ORDERED: cloNIDine HCL 0.1 MG TABLET PO PRN (09:00)
[2018-06-11] MEDS ORDERED: HALOPERIDOL LACT 5 MG/ML VIAL. IM PRN (09:00)
[2018-06-11] MEDS ORDERED: ELECTROLYTE (NON-ICU) PROTOCOL MC PRN (09:00)
[2018-06-11] MEDS ORDERED: diphenhydrAMINE 50 MG/ML VIAL IVP PRN (09:00)
[2018-06-11] MEDS: KETOROLAC 15 MG/ML VIAL. IV PRN ×2 (09:14→16:25)
[2018-06-11] MEDS: ONDANSETRON PF 4 MG/2 ML VIAL. IV PRN ×2 (09:15→16:25)
[2018-06-11] MEDS ORDERED: IOHEXOL 300 MG/ML 75 ML VIAL. IV ONE (09:15)
[2018-06-11] MEDS ORDERED: ONDANSETRON ODT 4 MG TAB.RAPDIS PO PRN (09:15)
--- NOTE | 2018-06-11 10:42 | RAD ---
PQRS Compliance Statement: One or more of the following individualized dose reduction techniques were utilized for this examination: 1. Automated exposure control 2. Adjustment of the mA and/or kV according to patient size 3. Use of iterative reconstruction technique CT abdomen/pelvis with contrast 06/11/2018 9:39 AM INDICATION: Pancreatitis COMPARISON: CT abdomen/pelvis May 12, 2017 TECHNIQUE: Multiple axial CT images of the abdomen and pelvis were obtained after the intravenous administration of 75 mL Omnipaque 300. Coronal and sagittal reformats are provided. FINDINGS: Lung bases are clear. Heart size is within normal limits. There is hypoattenuation of the hepatic parenchyma suggestive of hepatic steatosis. Spleen is not enlarged. Calcification within the spleen may reflect prior granulomatous exposure. Adrenal glands are normal in appearance. Pancreas is normal in appearance. Gallbladder is present without adjacent inflammatory changes. Abdominal aorta is normal in course and caliber. There are no pathologically enlarged lymph nodes in abdomen and pelvis. There is no free fluid or free intraperitoneal air. Small and large bowel are normal in caliber. There is no evidence for bowel obstruction. There are no pericolonic inflammatory changes. A normal, nondilated appendix is visualized without adjacent inflammatory changes. Left colon to the sigmoid colon appears decompressed limiting evaluation. The kidneys enhance symmetrically. There is no suspicious renal mass. There is no hydronephrosis. There are no suspected calculi within the kidneys, ureters or urinary bladder. There is a subcentimeter hypoattenuating lesion in the inferior pole the right kidney statistically favor to represent a simple cyst. Urinary bladder is within normal limits given degree of distention. Uterus and adnexa are normal by CT. No suspicious osseous abnormality is identified. There is minimal levoconvex curvature of the lumbar spine. IMPRESSION: 1. There is diffuse hepatic steatosis. 2. No peripancreatic inflammation or fluid collection is identified. Electronically signed by: Maisha White MD (06/11/2018 10:40 AM) [id number]
[2018-06-11 11:14] VITALS: BP 129/89
[2018-06-11 14:29] LABS: CREATININE 0.7 mg/dL (0.6-1.0); GFR 91.3; POTASSIUM 3.3 mmol/L (3.5-5.1)
[2018-06-11 15:50] VITALS: BP 146/97
[2018-06-11] MEDS: POTASSIUM CL 20MEQ IN 0.9%NACL 1,000 ML IV SCH (17:15)
[2018-06-11 19:40] VITALS: BP 138/99
[2018-06-11 22:33] VITALS: BP 138/98
--- NOTE | 2018-06-11 23:23 | HP ---
ADMIT DATE: 06/11/2018 HISTORY OF PRESENT ILLNESS: A 43-year-old female came in through the Emergency Room feeling fairly weak and tired. The patient apparently had been drinking, has diffuse abdominal pain. She has been having what appeared to be seizure activity with a history of head injuries in the past. The patient thinks she may have missed a dose of her Dilantin, which may be responsible for her seizure activity that she described as tonic-clonic seizures. In any case, was admitted for multiplicity of medical problems including that of tonic-clonic seizures, severe hypokalemia, potassium 2.8, pancreatitis, elevated liver enzymes. The patient will be admitted, monitored, noted potassium up and monitor for any further seizure activity. PAST MEDICAL HISTORY: Seizures. She has had history of C. diff colitis. She has had GERD, musculoskeletal problems, carpal tunnel syndrome, Orthopedic Surgery, bilateral ankles with plates and screws, depression, anxiety, severe alcoholism, past tobacco abuse, Lyme's disease. IMMUNIZATIONS: For influenza up to date. C. diff positive in the past. FAMILY HISTORY: Father, cardiovascular disease. ALLERGIES: ADVERSE REACTION TO PENICILLIN. SOCIAL HISTORY: The patient is a full code. The patient continues to drink, off and on a binge drinking, has about [id number] history of smoking. REVIEW OF SYSTEMS: The patient denies any headaches, visual change, blurred vision, double vision. No shortness of breath. Also notes to have headaches. Does have a diffuse abdominal discomfort with abdominal pain. The patient denies any problems with bowels or bladder presently, logically baseline except for the fact that she has had the seizure activity and is currently recuperate from feels postictal. PHYSICAL EXAMINATION: GENERAL: This is a pleasant white female. VITAL SIGNS: Blood pressure 163/90, respiratory rate 36, pulse 122, afebrile, oxygen saturation good at 98%. HEENT: The patient's head was atraumatic, normocephalic. Eyes: PERRLA without jaundice. The mouth and throat were normal. NECK: Supple. LUNGS: Diminished, but clear. CARDIOVASCULAR: Regular sinus rhythm, tachy. ABDOMEN: Soft, diffuse tenderness in the epigastric area, but no rebounding, no guarding. Positive bowel sounds, no hepatosplenomegaly was noted. EXTREMITIES: No clubbing, cyanosis or edema. NEUROLOGIC: Intact. LABORATORY DATA: As noted on her labs, potassium was 2.8. Elevated liver enzymes. Lipase 460, elevated. The patient's CBC, sed rate, all normal. D-dimer was elevated at 1.29. C. diff negative. IMPRESSION: Clonic-tonic seizure activity, alcoholism, pancreatitis, hypokalemia, elevated liver enzymes, urinary tract infection. RECOMMENDATIONS: Continue to adjust her potassium to her urinary tract infection, make further evaluation on her as indicated per those results. CAMERON PENNY MD DR: YVETTE/chidi JOB#: [id number] / [id number]
[2018-06-12] MEDS: KETOROLAC 15 MG/ML VIAL. IV PRN (01:10)
[2018-06-12] MEDS: ONDANSETRON PF 4 MG/2 ML VIAL. IV PRN ×2 (01:11→06:23)
[2018-06-12 05:35] VITALS: BP 129/92
[2018-06-12] MEDS ORDERED: HEPARIN for SUB-Q USE 5,000 UNIT/ML VIAL. SQ SCH (06:00)
[2018-06-12] MEDS: POTASSIUM CL 20MEQ IN 0.9%NACL 1,000 ML IV SCH (06:21)
[2018-06-12 06:37] LABS: BASO % 1 % (0-3); EOS # 0.1 x10^3/uL (0.0-0.7); EOS % 3 % (0-3); HEMATOCRIT 36.5 % (36.0-47.0); HEMOGLOBIN 12.6 g/dL (12.0-15.5); LYMPH # 0.5 x10^3/uL (1.0-4.8); LYMPH % 16 % (24-48); MEAN CORPUSCULAR HEMOGLOBIN 37 pg (25-35); MEAN CORPUSCULAR HGB CONC 35 g/dL (31-37); MEAN CORPUSCULAR VOLUME 107 fL (79-100); MONO # 0.3 x10^3/uL (0.0-1.1); MONO % 8 % (0-9); NEUT # 2.5 x10^3uL (1.8-7.7); NEUT % 73 % (31-73); PLATELET COUNT 123 x10^3/uL (140-400); RED BLOOD COUNT 3.43 x10^6/uL (3.50-5.40); RED CELL DISTRIBUTION WIDTH 14.8 % (11.5-14.5); WHITE BLOOD COUNT 3.4 x10^3/uL (4.0-11.0)
[2018-06-12 06:38] LABS: CALCIUM 7.4 mg/dL (8.5-10.1); CREATININE 0.5 mg/dL (0.6-1.0); GFR 134.7; POTASSIUM 3.4 mmol/L (3.5-5.1)
[2018-06-12] MEDS ORDERED: LORazepam 1 MG TABLET PO ONE (08:45)
[2018-06-12] MEDS ORDERED: ELECTROLYTE (NON-ICU) PROTOCOL MC PRN (09:00)
[2018-06-12] MEDS ORDERED: FOLIC ACID 1 MG TABLET PO SCH (09:00)
[2018-06-12] MEDS ORDERED: MVI, ADULT NO.4 WITH VIT K 10 ML, THIAMINE INJ 100 MG, FOLIC ACID INJ 1 MG in IV NORMAL... IV SCH ×4 (09:00)
[2018-06-12] MEDS ORDERED: PHEN100C4 PO (09:35)
[2018-06-12] MEDS ORDERED: MIRT15TA3 PO (09:35)
[2018-06-12] MEDS ORDERED: LORA0.5T PO (09:35)
--- NOTE | 2018-06-12 17:00 | CONS ---
DATE OF CONSULTATION: 06/11/2018 NEUROLOGY CONSULTATION REFERRING PHYSICIAN: Dr. Bustamante. REASON FOR CONSULTATION: Rule out seizure. HISTORY OF PRESENT ILLNESS: This is a 43-year-old right-handed female who was admitted through Emergency Room after she presented with 3-day history of recurrent seizure, described by the patient as tremor and shaking all over, lasted several minutes. According to the patient, she has been alcoholic for entire her life. Currently, she drinks at least 6 cans daily. She stated 3 days ago, she had a seizure. She was evaluated in the Emergency Room and given Dilantin. It is reported that the patient has not been compliant with medication and she has taken 100 mg of Dilantin only yesterday. Subsequently, she started having seizure-like activities, described as shaking all over. The patient stated the spell is usually aggravated by anxiety. She denies alcohol withdrawal seizure in the past. The patient denies history of seizure; however, 3 days ago, she sustained a fall and injured her head without loss of consciousness. She also complains of generalized weakness, malaise, nausea and vomiting. The patient stated she has been having recent history of Clostridium difficile. PAST MEDICAL HISTORY: Significant for chronic alcohol abuse, the last drink was at 7:30 last night; anxiety; GERD; history of ulcerative colitis. PAST SURGICAL HISTORY: Significant for hernia repair, bilateral ankle surgery for fracture. SOCIAL HISTORY: The patient lives with significant other. She smokes less than 1 pack of cigarettes daily. She drinks at least 6-pack of beers daily for many years. FAMILY HISTORY: Father had heart disease. CURRENT MEDICATIONS: Folic acid 1 mg daily, multivitamins, potassium, Zofran, Toradol 50 mg IV p.r.n. for headaches, lorazepam 4 mg. The patient is on [facility] Protocol. Clonidine 0.1 mg daily, Benadryl 25 mg p.r.n. and intravenously, haloperidol 5 mg q.4 hours p.r.n. for agitation and psychosis and Tylenol p.r.n. for pain. ALLERGIES: PENICILLIN. REVIEW OF SYSTEMS: A 10-point review of system was performed as mentioned above in history of present illness. PHYSICAL EXAMINATION: GENERAL: A well-developed, well-nourished female, not in acute distress. She weighs 129 pounds. VITAL SIGNS: Blood pressure 138/92, respiratory rate 16, pulse is 94 and regular, temperature 98.4, oxygen saturation 96% on room air. HEENT: Normocephalic, atraumatic, otherwise unremarkable. NECK: Supple. Negative for carotid bruit, lymphadenopathy or thyromegaly or JVD. LUNGS: Clear to A and P. CARDIOVASCULAR: Regular rate and rhythm, normal S1, S2. There is no S3, S4, or murmur. ABDOMEN: Soft. Bowel sounds positive. EXTREMITIES: Negative for cyanosis, clubbing or pitting edema. NEUROLOGICAL EXAM: Mental Status: The patient is alert and oriented x3. Speech is fluent. There is no language dysfunction. Memory: The patient recalls 2/3 immediately and after 1 and 3 minutes. Judgment and abstract thinking are fair. The patient denies hallucination or delusion. Cranial Nerves: Visual briones are full. The pupils are reactive to light and accommodation. The extraocular movements are intact. There is no nystagmus. There is no facial motor or sensory deficit. Hearing is intact bilaterally. The palate is elevated symmetrically. Sternocleidomastoid muscles are powerful bilaterally. The patient shrugs her shoulders symmetrically, protrudes her tongue in the midline without fasciculation or atrophy. Motor: No focal muscle bulk was seen. The tone is normal. The strength is 5/5 throughout. Sensory examination revealed normal pinprick and light touch senses. Deep tendon reflexes were asymmetric and active without pathology responses. Gait: The stance is steady. The patient has normal oeyxea-cr-pool and huzg-sr-qosn, with extremity moves and rapid repetitive movements. DIAGNOSTIC: Nonenhanced head CT scan revealed no evidence of acute intracranial process, otherwise unremarkable. Chest x-ray revealed no acute cardiopulmonary process. Abdominal CT scan revealed diffuse hepatic steatosis, otherwise unremarkable. LABORATORY DATA: CBC revealed white blood cells of 6.5 thousand, hemoglobin 14.2, hematocrit 40.6, platelet count 148,000. Chemistry: Sodium 138, potassium 2.8, chloride 98, CO2 is 19, BUN 5, creatinine 0.7, calcium 8.7. ____ is elevated at 94, AST is elevated at 60 and creatine kinase is high at 550 with normal troponin level and elevated lipase at 462. Urinalysis is trace of leukocyte esterase with white blood cells more than 40. Urine drug screen is positive for alcohol. IMPRESSION: 1. Recurrent episodes described as seizure-like activities likely induced by stress; however, alcohol withdrawal seizure could not be entirely ruled out. 2. Chronic alcohol abuse. 3. Multiple medical problems include gastroesophageal reflux disease, anxiety, depression, history of Lyme disease, carpal tunnel syndrome and ulcerative colitis. RECOMMENDATIONS: 1. Continue with [facility] protocol for alcohol withdrawal symptoms. 2. We will arrange for electroencephalogram to be done on an outpatient basis. 3. We will discontinue the Dilantin for now. M Kenneth RAY MD DR: PRETTY/chidi JOB#: [id number] / [id number]
== END 2018-06-12 09:30 | disposition home or self-care (01) | DRG 100 ==
LOC: ER 05:12 → 1 SOUTH 07:43
PROVIDERS: ADMIT Family Medicine; ATTEND Family Medicine
DX: G40.89 Other seizures (principal); K85.90 Acute pancreatitis without necrosis or infection, unspecified; F10.239 Alcohol dependence with withdrawal, unspecified; N39.0 Urinary tract infection, site not specified; F41.9 Anxiety disorder, unspecified; K21.9 Gastro-esophageal reflux disease without esophagitis; F32.9 Major depressive disorder, single episode, unspecified; E83.42 Hypomagnesemia; E87.6 Hypokalemia; F17.210 Nicotine dependence, cigarettes, uncomplicated; Z88.0 Allergy status to penicillin; Z82.49 Family history of ischemic heart disease and other diseases of the circulatory system; Z86.19 Personal history of other infectious and parasitic diseases; Z91.14 Patient's other noncompliance with medication regimen
CPT/HCPCS: 36415; 70450; 71045; 74177; 80048; 80076; 80185; 80307; 81001; 81025; 82550; 82977; 83690; 83735; 83880; 84443; 84484; 84702; 85025; 85379; 85610; 85651; 85730; 87086; 87493; 93005; 96361; 96374; 96375; G0480; J0696; J1644; J1885; J2060; J2405; J7120; Q9967; 99285-25; J7030

== ENCOUNTER 2018-10-16 06:05 | Emergency (ER) | payer SELFPAY ==
[~2018-10-16] VITALS: Ht 157.5 cm; Wt 54.6 kg
[~2018-10-16 06:05] MED LIST changes: +MULT-735 PO; +PHEN100C4 PO
--- NOTE | 2018-10-16 06:33 | PHYS DOC ---
Past History Past Medical History: Seizure Additional Past Medical Histor: patient reports a history of ulcerative colitis Past Surgical History: Other Additional Past Surgical Histo: hernia-umbilical Smoking: Less than 1pk/day Alcohol Use: Heavy Additional Alcohol Information: Currently a pint of whiskey daily Drug Use: None Adult General Chief Complaint Chief Complaint: NAUSEA/VOMITING/DIARRHEA HPI HPI Patient is a 43-year-old female presents with multiple episodes of nausea and vomiting which started this morning. No blood in the emesis. Patient notes she has been constipated for the past several days but is still passing flatus. No specific abdominal pain other than a general achiness and crampiness. Abdominal surgery history is significant for umbilical hernia. Patient drinks a pint of whiskey daily with her last drink being at approximately 7:00 last night. During the car ride to the emergency department she noted that both hands cramped up and she has some generalized shaking. She had a subjective fever last night. No temperature was taken. Patient and her partner ate at [employer] yesterday evening. Partner is not having any evidence of similar illness. No recent out of the country travel. Nothing makes the symptoms better or worse.[] Review of Systems Review of Systems Constitutional: See history of present illness[] Eyes: Denies change in visual acuity, redness, or eye pain [] HENT: Denies nasal congestion or sore throat [] Respiratory: Denies cough or shortness of breath [] Cardiovascular: No chest pain or palpitations[] GI: See history of present illness[] : Denies dysuria or hematuria [] Musculoskeletal: Denies back pain or joint pain [] Integument: Denies rash or skin lesions [] Neurologic: Denies headache, focal weakness or sensory changes [] Endocrine: Denies polyuria or polydipsia [] All other systems were reviewed and found to be within normal limits, except as documented in this note. Allergies Allergies Allergies Coded Allergies Type Severity Reaction Last Updated Verified Penicillins Allergy Intermediate HIVES 09/24/14 Yes Physical Exam Physical Exam Constitutional: Well developed, well nourished, mild discomfort, non-toxic appearance. [] HENT: Normocephalic, atraumatic, bilateral external ears normal, oropharynx moist, no oral exudates, nose normal. [] Eyes: PERRLA, EOMI, conjunctiva normal, no discharge. [] Neck: Normal range of motion, no tenderness, supple, no stridor. [] Cardiovascular:Heart rate regular rhythm, no murmur [] Lungs & Thorax: Bilateral breath sounds clear to auscultation [] Abdomen: Bowel sounds normal, soft, diffuse tenderness, no rebound, no guarding, no rigidity, no masses, no pulsatile masses. [] Skin: Warm, dry, no erythema, no rash. [] Back: No tenderness, no CVA tenderness. [] Extremities: No tenderness, no cyanosis, no clubbing, ROM intact, no edema. [] Neurologic: Alert and oriented X 3, normal motor function, normal sensory function, no focal deficits noted. [] Psychologic: Affect normal, judgement normal, mood anxious. [] EKG EKG [] Radiology/Procedures Radiology/Procedures [] Course & Med Decision Making Course & Med Decision Making Pertinent Labs and Imaging studies reviewed. (See chart for details) ED course: Patient arrived, was placed in bed, and tolerated exam well. IV fluids were administered. She was oral intake tolerant. Patient was noted to have an elevated lipase and discussed imaging with patient. She was initially receptive to the imaging and additional treatment and probable inpatient care. She and her partner, however decided to leave AGAINST MEDICAL ADVICE. She was warned of the risks to include or permanent disability. Both she and her partner were able to state the risks in their own words. They appear able to make an informed decision. Medical decision making: Patient with pancreatitis most likely is result of alcohol use. Hypomagnesemia and hypokalemia are also present and will attempt to replace these within what patient will tolerate. She is refusing further emergency department care as well as hospital admission.[] Dragon Disclaimer Dragon Disclaimer This electronic medical record was generated, in whole or in part, using a voice recognition dictation system. Departure Departure: Impression: Primary Impression: Alcohol intoxication Additional Impressions: Pancreatitis Nausea & vomiting Disposition: 07 AGAINST MEDICAL ADVICE Condition: STABLE Referrals: CAMERON PENNY MD (PCP) Call the office today to arrange follow-up appointment Patient Instructions: Acute Pancreatitis, Alcohol Intoxication, Alcohol Withdrawal, Alcohol and Nutrition, Nausea and Vomiting Additional Instructions: Drink plenty of fluids, frequent small sips. No fatty foods, no milk, and no pepper for the next 48 hours. For the next 48 hours eat a diet rich in carbohydrates with foods such as bananas, rice, applesauce, and toast. Follow-up with your regular doctor in 2 days. Call today to make the appointment. Return to the ER if worsening pain, blood in the emesis, unable to tolerate liquids, or any other concerns. Scripts Magnesium Oxide (MAGNESIUM) 400 Mg Capsule 1 CAP PO BID for low magnesium, #20 CAP 0 Refills Prov: PRIYANKA JULES DO 10/16/18 Potassium Chloride (POTASSIUM CHLORIDE) 20 Meq Tablet.er 20 MEQ PO DAILY for low potassium for 10 Days, #10 TAB Prov: PRIYANKA JULES DO 10/16/18 Ondansetron Hcl (ZOFRAN) 4 Mg Tablet 1 TAB PO Q6HRS for nausea or vomiting, #20 TAB Prov: PRIYANKA JULES DO 10/16/18 Problem Qualifiers Primary Impression: Alcohol intoxication Complication of substance-induced condition: uncomplicated Qualified Codes: F10.920 - Alcohol use, unspecified with intoxication, uncomplicated Additional Impressions: Pancreatitis Chronicity: acute Pancreatitis type: alcohol induced Acute pancreatitis complication: unspecified Qualified Codes: K85.20 - Alcohol induced acute pancreatitis without necrosis or infection Nausea & vomiting Vomiting type: unspecified Vomiting Intractability: non-intractable Qualified Codes: R11.2 - Nausea with vomiting, unspecified PRIYANKA JULES DO Oct 16, 2018 06:33
[2018-10-16] MEDS ORDERED: IV NORMAL SALINE 1,000ML 1,000 ML IV SCH (07:00)
[2018-10-16] MEDS ORDERED: PROCHLORPERAZINE 10 MG/2 ML VIAL. IV ONE (07:00)
[2018-10-16 07:17] LABS: BASO # 0.1 x10^3/uL (0.0-0.2); BASO % 2 % (0-3); EOS % 1 % (0-3); HEMATOCRIT 40.2 % (36.0-47.0); HEMOGLOBIN 13.7 g/dL (12.0-15.5); LYMPH # 0.7 x10^3/uL (1.0-4.8); LYMPH % 27 % (24-48); MEAN CORPUSCULAR HEMOGLOBIN 37 pg (25-35); MEAN CORPUSCULAR HGB CONC 34 g/dL (31-37); MEAN CORPUSCULAR VOLUME 108 fL (79-100); MONO # 0.2 x10^3/uL (0.0-1.1); MONO % 9 % (0-9); NEUT # 1.5 x10^3uL (1.8-7.7); NEUT % 61 % (31-73); PLATELET COUNT 248 x10^3/uL (140-400); RED BLOOD COUNT 3.72 x10^6/uL (3.50-5.40); WHITE BLOOD COUNT 2.5 x10^3/uL (4.0-11.0)
[2018-10-16 07:30] LABS: ALBUMIN 3.3 g/dL (3.4-5.0); ALBUMIN/GLOBULIN RATIO 0.9 (1.0-1.7); CALCIUM 8.5 mg/dL (8.5-10.1); CREATININE 0.6 mg/dL (0.6-1.0); GFR 109.1; MAGNESIUM 1.5 mg/dL (1.8-2.4); POTASSIUM 3.1 mmol/L (3.5-5.1); TOTAL BILIRUBIN 0.5 mg/dL (0.2-1.0)
[2018-10-16 07:41] LABS: BARBITURATES NEG (NEG); BENZODIAZEPINES NEG (NEG); CANNABINOIDS NEG (NEG); COCAINE NEG (NEG); METHADONE NEG (NEG); OPIATES NEG (NEG); PHENCYCLIDINE NEG (NEG)
[2018-10-16 07:43] LABS: AMPHETAMINE/METHAMPHETAMINE NEG (NEG)
[2018-10-16 07:46] LABS: BACTERIA,URINE 0 /HPF (0-FEW); BILIRUBIN,URINE NEG (NEG); CLARITY,URINE CLEAR; COLOR,URINE YELLOW; GLUCOSE,URINE NEG (NEG); NITRITE,URINE NEG (NEG); RBC,URINE 0 /HPF (0-2); SQUAMOUS EPITHELIAL CELL,UR FEW /LPF; UROBILINOGEN,URINE 0.2 mg/dL (0.2 mg/dL); WBC,URINE RARE /HPF (0-4)
[2018-10-16] MEDS ORDERED: MAGNESIUM SULFATE 2GM 50 ML IV ONE (08:00)
[2018-10-16] MEDS ORDERED: POTASSIUM CHLORIDE 20 MEQ TABLET.ER. PO ONE (08:00)
[2018-10-16] MEDS ORDERED: IV NORMAL SALINE 1,000ML 1,000 ML IV ONE (08:00)
[2018-10-16] MEDS ORDERED: MAGN400C PO (08:07)
[2018-10-16] MEDS ORDERED: ONDA4TAB7 PO (08:07)
[2018-10-16] MEDS ORDERED: POTA20TA82 PO (08:07)
[2018-10-16 08:13] VITALS: BP 151/100
[2018-10-16] MEDS ORDERED: IOHEXOL 300 MG/ML 75 ML VIAL. IV ONE (08:30)
== END 2018-10-16 08:23 | disposition left against medical advice (07) ==
LOC: ER 06:05
DX: F10.229 Alcohol dependence with intoxication, unspecified (principal); T51.0X1A Toxic effect of ethanol, accidental (unintentional), initial encounter; K85.20 Alcohol induced acute pancreatitis without necrosis or infection; R11.2 Nausea with vomiting, unspecified; F17.200 Nicotine dependence, unspecified, uncomplicated; Z88.0 Allergy status to penicillin; Y90.8 Blood alcohol level of 240 mg/100 ml or more
CPT/HCPCS: 36415; 80053; 80307; 81001; 81025; 82803; 83690; 83735; 85025; 96361; 96374; 99285; G0480; J0780; J7030

== ENCOUNTER 2019-01-15 17:37 | Emergency (ER) | payer SELFPAY ==
[~2019-01-15] VITALS: Ht 157.5 cm; Wt 52.1 kg
[~2019-01-15 17:37] MED LIST changes: +MAGN400C PO; +ONDA4TAB7 PO; +POTA20TA4 PO
[2019-01-15] MEDS ORDERED: IV NORMAL SALINE 1,000ML 1,000 ML IV SCH (18:07)
--- NOTE | 2019-01-15 18:13 | PHYS DOC ---
Past History Past Medical History: Anxiety, Seizure, Other Additional Past Medical Histor: patient reports a history of ulcerative colitis; c diff Past Surgical History: Other Additional Past Surgical Histo: hernia-umbilical Smoking: Less than 1pk/day Alcohol Use: Heavy Additional Alcohol Information: drank 1 beer this am Drug Use: None Adult General Chief Complaint Chief Complaint: ABDOMINAL PAIN HPI HPI Patient is a 43-year-old female with diffuse abdominal pain for the past several days. Nothing makes it better or worse. It is sharp and severe. She notes bright red blood from her rectum. She has a reported history of ulcerative colitis but is not on any aspirin containing products for this, nor oral steroid preparations. She has a history of alcohol use and abuse. She also reports nausea and vomiting that is not being improved by promethazine. She reports being unable to get in with her primary care or GI team. No radiation of the discomfort. No blood in her emesis. No coffee ground emesis.[] Review of Systems Review of Systems Constitutional: Denies fever or chills [] Eyes: Denies change in visual acuity, redness, or eye pain [] HENT: Denies nasal congestion or sore throat [] Respiratory: Denies cough or shortness of breath [] Cardiovascular: No chest pain or palpitations[] GI: See history of present illness[] : Denies dysuria or hematuria [] Musculoskeletal: Denies back pain or joint pain [] Integument: Denies rash or skin lesions [] Neurologic: Denies headache, focal weakness or sensory changes [] Endocrine: Denies polyuria or polydipsia [] All other systems were reviewed and found to be within normal limits, except as documented in this note. Allergies Allergies Allergies Coded Allergies Type Severity Reaction Last Updated Verified Penicillins Allergy Intermediate HIVES 01/15/19 Yes Physical Exam Physical Exam Constitutional: Well developed, well nourished, mild discomfort, non-toxic appearance. [] HENT: Normocephalic, atraumatic, bilateral external ears normal, oropharynx slightly dry, no oral exudates, nose normal. [] Eyes: PERRLA, EOMI, conjunctiva normal, no discharge. [] Neck: Normal range of motion, no tenderness, supple, no stridor. [] Cardiovascular:Heart rate regular rhythm, no murmur [] Lungs & Thorax: Bilateral breath sounds clear to auscultation [] Abdomen: Bowel sounds normal, soft, diffuse tenderness, no rebound, no guarding, no rigidity, able to sit up and lie back without any difficulty, no McBurney's point tenderness, no Cuadra sign., no masses, no pulsatile masses. [] Skin: Warm, dry, no erythema, no rash. [] Back: No tenderness, no CVA tenderness. [] Extremities: No tenderness, no cyanosis, no clubbing, ROM intact, no edema. [] Neurologic: Alert and oriented X 3, normal motor function, normal sensory function, no focal deficits noted. [] Psychologic: Affect normal, judgement normal, mood normal. [] Current Patient Data Vital Signs Vital Signs Date Time Temp Pulse Resp B/P (MAP) Pulse Ox O2 Delivery O2 Flow Rate FiO2 01/15/19 17:50 98.2 102 18 98 Room Air EKG EKG [] Radiology/Procedures Radiology/Procedures PROCEDURE: CT ABD PELV W/ORAL&IV CONTRAST Examination: CT of the abdomen pelvis with oral and IV contrast HISTORY: History of abdominal pain, rectal bleeding COMPARISON: 06/11/2018 TECHNIQUE: Axial CT images of the abdomen pelvis were performed with oral and IV contrast. Exposure: One or more of the following individualized dose reduction techniques were utilized for this examination: 1. Automated exposure control 2. Adjustment of the mA and/or kV according to patient size 3. Use of iterative reconstruction technique FINDINGS: The bibasilar lungs are clear. No evidence of free air identified in the abdomen. Hepatomegaly with diffuse decreased attenuation noted throughout the liver likely hepatic steatosis. The gallbladder is mildly distended. The visualized spleen, adrenals grossly appears unremarkable. The stomach is mildly distended. The visualized pancreas grossly appears unremarkable. The small bowel is nondilated. The visualized appendix appears unremarkable. Mild thickened appearance of the wall of the colon particularly in the ascending colon and in the descending colon with minimal surrounding fat stranding likely colitis. Urinary bladder is mildly distended. The bilateral kidneys enhance symmetrically. The caliber of the aorta grossly appears unremarkable. No evidence of lytic bony destructive lesion. IMPRESSION: 1. Mild thickened appearance of the wall of the ascending and descending colon probably mild colitis. 2. Hepatic steatosis with hepatomegaly. 3. Mild distended gallbladder. [] Course & Med Decision Making Course & Med Decision Making Pertinent Labs and Imaging studies reviewed. (See chart for details) ED course: Patient arrived, was placed in bed, and tolerated exam well. She was able to tolerate oral contrast as well as improved pain with pain medicines. [facility] with [facility]. She was given oral potassium as well as IV magnesium to replace the electrolytes that were noted to be deficient. After the return of laboratory and imaging findings, these were discussed with patient's primary care physician who recommended patient be transferred to [place] given the GI issues. Consultation was then made with hospitalist at [facility], Dr. Desir, who graciously accepted the patient. On further discussion with the patient, she refused to be transported by ambulance because of monetary/insurance issues. Stressed the importance of her needing to be continued to be monitored, receive IV fluids as well as the electrolyte replacement. She elected to sign out of [facility] AGAINST MEDICAL ADVICE stating that she would transport herself with her partner to [place]. She appears able to make an informed decision and was able to state the risks in her own words to include or permanent disability. She signed out AGAINST MEDICAL ADVICE. Medical decision making: Patient with rectal bleeding, most likely is result of her ulcerative colitis. However, she is not on any medicines long-term for her ulcerative colitis. In addition she is hypokalemic and hypomagnesemic, most likely is result of her alcohol use/abuse.[] Dragon Disclaimer Dragon Disclaimer This electronic medical record was generated, in whole or in part, using a voice recognition dictation system. Departure Departure: Impression: Primary Impression: Colitis Additional Impressions: Alcohol abuse Hypokalemia Hypomagnesemia Rectal bleeding Disposition: 07 AGAINST MEDICAL ADVICE Condition: IMPROVED Referrals: CAMERON PENNY MD (PCP) Problem Qualifiers DHARAPRIYANKA JOSEPH Jan 15, 2019 18:13
[2019-01-15] MEDS ORDERED: IOHEXOL 300 MG/ML 75 ML VIAL. IV ONE (18:30)
[2019-01-15] MEDS ORDERED: HYOSCYAMINE 0.125 MG TAB.RAPDIS PO ONE (18:30)
[2019-01-15] MEDS ORDERED: CONTRAST GIVEN MC PRN (18:30)
[2019-01-15] MEDS ORDERED: IOHEXOL 240 MG/ML 50ML VIAL. PO ONE (18:30)
[2019-01-15] MEDS ORDERED: PANTOPRAZOLE IV 40 MG VIAL. IVP ONE (18:30)
[2019-01-15] MEDS ORDERED: PROCHLORPERAZINE 10 MG/2 ML VIAL. IV ONE (18:30)
[2019-01-15] MEDS: MORPHINE SULFATE 2 MG/ML DISP.SYRIN. IV/SQ PRN ×2 (18:48→20:20)
[2019-01-15 19:41] LABS: BARBITURATES NEG (NEG); BENZODIAZEPINES NEG (NEG); CANNABINOIDS NEG (NEG); COCAINE NEG (NEG); METHADONE NEG (NEG); OPIATES POS (NEG); PHENCYCLIDINE NEG (NEG)
[2019-01-15 19:42] LABS: AMPHETAMINE/METHAMPHETAMINE NEG (NEG)
[2019-01-15 19:43] LABS: BILIRUBIN,URINE NEG (NEG); CLARITY,URINE HAZY; COLOR,URINE YELLOW; GLUCOSE,URINE NEG (NEG)
[2019-01-15 19:44] LABS: BACTERIA,URINE FEW /HPF (0-FEW); NITRITE,URINE NEG (NEG); UROBILINOGEN,URINE 1 mg/dL (0.2 mg/dL)
[2019-01-15 19:45] LABS: SQUAMOUS EPITHELIAL CELL,UR OCC /LPF
[2019-01-15 19:51] LABS: BASO % 1 % (0-3); EOS % 0 % (0-3); HEMATOCRIT 41.7 % (36.0-47.0); LYMPH # 0.7 x10^3/uL (1.0-4.8); LYMPH % 13 % (24-48); MEAN CORPUSCULAR HEMOGLOBIN 37 pg (25-35); MEAN CORPUSCULAR HGB CONC 34 g/dL (31-37); MEAN CORPUSCULAR VOLUME 111 fL (79-100); MONO # 0.4 x10^3/uL (0.0-1.1); MONO % 8 % (0-9); NEUT # 3.9 x10^3uL (1.8-7.7); NEUT % 78 % (31-73); PLATELET COUNT 102 x10^3/uL (140-400); RED BLOOD COUNT 3.75 x10^6/uL (3.50-5.40); RED CELL DISTRIBUTION WIDTH 14.7 % (11.5-14.5); WHITE BLOOD COUNT 4.9 x10^3/uL (4.0-11.0)
[2019-01-15 20:05] LABS: ALBUMIN 3.2 g/dL (3.4-5.0); ALBUMIN/GLOBULIN RATIO 0.9 (1.0-1.7); CREATININE 0.6 mg/dL (0.6-1.0); GFR 109.1; TOTAL BILIRUBIN 2.2 mg/dL (0.2-1.0); TOTAL PROTEIN 6.9 g/dL (6.4-8.2)
[2019-01-15 20:06] LABS: POTASSIUM 2.2 mmol/L (3.5-5.1)
[2019-01-15 20:08] LABS: FECAL OB PT POSITIVE (NEG)
[2019-01-15] MEDS ORDERED: POTASSIUM CHLORIDE 20 MEQ TABLET.ER. PO ONE (20:15)
[2019-01-15 20:23] LABS: PLT ESTIMATE DECREASED (ADEQUATE)
[2019-01-15 20:26] VITALS: BP 139/76
--- NOTE | 2019-01-15 20:31 | RAD ---
Examination: CT of the abdomen pelvis with oral and IV contrast HISTORY: History of abdominal pain, rectal bleeding COMPARISON: 06/11/2018 TECHNIQUE: Axial CT images of the abdomen pelvis were performed with oral and IV contrast. Exposure: One or more of the following individualized dose reduction techniques were utilized for this examination: 1. Automated exposure control 2. Adjustment of the mA and/or kV according to patient size 3. Use of iterative reconstruction technique FINDINGS: The bibasilar lungs are clear. No evidence of free air identified in the abdomen. Hepatomegaly with diffuse decreased attenuation noted throughout the liver likely hepatic steatosis. The gallbladder is mildly distended. The visualized spleen, adrenals grossly appears unremarkable. The stomach is mildly distended. The visualized pancreas grossly appears unremarkable. The small bowel is nondilated. The visualized appendix appears unremarkable. Mild thickened appearance of the wall of the colon particularly in the ascending colon and in the descending colon with minimal surrounding fat stranding likely colitis. Urinary bladder is mildly distended. The bilateral kidneys enhance symmetrically. The caliber of the aorta grossly appears unremarkable. No evidence of lytic bony destructive lesion. IMPRESSION: 1. Mild thickened appearance of the wall of the ascending and descending colon probably mild colitis. 2. Hepatic steatosis with hepatomegaly. 3. Mild distended gallbladder. Electronically signed by: Chalo Solomon MD (01/15/2019 8:28 PM) [facility]
[2019-01-15] MEDS ORDERED: MAGNESIUM SULFATE 2GM 50 ML IV ONE (21:15)
[2019-01-15] MEDS ORDERED: POTASSIUM CL 20MEQ IN 0.9%NACL 1,000 ML IV ONE (21:30)
== END 2019-01-15 21:50 | disposition left against medical advice (07) ==
LOC: ER 17:37
DX: K52.9 Noninfective gastroenteritis and colitis, unspecified (principal); E87.6 Hypokalemia; E83.42 Hypomagnesemia; K62.5 Hemorrhage of anus and rectum; F10.10 Alcohol abuse, uncomplicated; F17.200 Nicotine dependence, unspecified, uncomplicated; Z88.0 Allergy status to penicillin; Y90.8 Blood alcohol level of 240 mg/100 ml or more
CPT/HCPCS: 36415; 74177; 80053; 80307; 81001; 81025; 82274; 83690; 83735; 84484; 85025; 85610; 85730; 87086; 96361; 96374; 96375; 96376; 99285; C9113; G0480; J0780; J2270; Q9966; Q9967; J7030

== ENCOUNTER 2019-01-30 20:36 | Inpatient (IN) | payer SELFPAY ==
[~2019-01-30] VITALS: Ht 154.9 cm; Wt 53.5 kg
--- NOTE | 2019-01-30 20:39 | PHYS DOC ---
Past History Past Medical History: Alcoholism, Anxiety, Depression, GERD, Hepatitis, Seizure, Other Additional Past Medical Histor: patient reports a history of ulcerative colitis; c diff Past Surgical History: Other Additional Past Surgical Histo: hernia-umbilical Smoking: Less than 1pk/day Alcohol Use: Heavy Drug Use: None Adult General Chief Complaint Chief Complaint: ".. I ve been vomiting so much.. stomach hurts.. now I am dizzy.. my last lab checks.. Dr. Coleman wanted to admit me for low potassium and magnesium/.... I did drink some alcohol .. last night... ///" HPI HPI Patient is a 43 year old female who presents with above hx and complaints of nausea, vomiting and dizzy spells. Pt. has hx of frequent alcohol use and seizure from alcohol withdrawal. Pt. Does admit to heavy use of alcohol last night. Awaken this morning with nausea and vomiting. Pt. did eat but vomited. Food was the same as her friends, and she did not get sick. Pt. denies black or tarry stools. Vomiting now is dry heaving. Pt. has hx of prior admits for alcoholic abuse , gastritis , seizures, nausea and vomiting. Patient does have a history of reportedly ulcerative colitis. Patient not currently on any seizure meds has been seen previously at [facility] with neurology for her seizure disorder. Previous workups felt that seizures related to her alcohol abuse and was the primary cause of the seizures. Friend advised she had multiple drinks of Jordan whiskey the last night. Follows with Dr. Penny and Dr. Coleman. No hx of trauma. No hx of fever or chills. No hx of immunosuppression. Review of Systems Review of Systems Constitutional: Denies fever or chills [] Eyes: Denies change in visual acuity, redness, or eye pain [] HENT: Denies nasal congestion or sore throat [] Respiratory: Denies cough or shortness of breath [] Cardiovascular: No additional information not addressed in HPI [] GI: Complaints of generalized abdominal pain, nausea,. Dry heave Vomiting,. Vomiting has no blood and no bloody stools or diarrhea [] : Denies dysuria or hematuria [] Musculoskeletal: Denies back pain or joint pain [] Integument: Denies rash or skin lesions [] Neurologic: Denies headache, focal weakness or sensory changes [] Endocrine: Denies polyuria or polydipsia [] All other systems were reviewed and found to be within normal limits, except as documented in this note. Family History Family History Noncontributory Current Medications Current Medications See nursing for home meds Allergies Allergies Allergies Coded Allergies Type Severity Reaction Last Updated Verified Penicillins Allergy Intermediate HIVES 01/15/19 Yes Physical Exam Physical Exam Constitutional: in acute distress, non-toxic appearance. [] HENT: Normocephalic, atraumatic, bilateral external ears normal, oropharynx dry, no oral exudates, nose normal. Flat top. Eyes: PERRLA, EOMI, conjunctiva normal, no discharge. [] Neck: Normal range of motion, no tenderness, supple, no stridor. [] Cardiovascular:Tachycardia Heart rate regular rhythm, no murmur [] Lungs & Thorax: Bilateral breath sounds equal at apexes with scattered wheezes on. auscultation [] Abdomen: Bowel sounds decreased, old umbilicus scar, , soft, generalized tenderness, no masses, no pulsatile masses. Pt. declined rectal at this time. Rebound to Rt. upper and epigastric area. Skin: Warm, dry, no erythema, no rash. [ Increased turgor. Back: No tenderness, no CVA tenderness. [] Extremities: No tenderness, no cyanosis, no clubbing, ROM intact, no edema. [] No significant psoas. No cording appreciated. Neurologic: Alert and oriented X 3, moves all ext on request, distal sensory, no gross focal deficits noted from baseline per pt. and friend. Psychologic: Affect very anxious, judgement normal, mood depressed. EKG EKG My interpretation EKG shows a sinus rhythm at 93 bpm. There is a incomplete right bundle mask long. This slightly prolonged QT interval at 390 ms and a QT interval 495 ms. No findings acute STEMI with contralateral changes.[] Radiology/Procedures Radiology/Procedures [][address] [address] IMAGING REPORT Signed PATIENT: ZAK MANZANARES ACCOUNT: [id number] : 1975 LOCATION: ER AGE: 43 SEX: F EXAM STATUS: REG ER ORD. PHYSICIAN: RAMSEY ACEVEDO MD REASON: abd. , n/v, pain- hx crohns/ UC? PROCEDURE: ABDOMEN SUPINE & UPRIGHT CHEST PA LATERAL, ABDOMEN SUPINE UPRIGHT INDICATION: Pain, nausea and vomiting, history of Crohn's. COMPARISON STUDY: Chest radiograph 06/11/2018. FINDINGS: Lungs: Normal lung volume. No pulmonary mass or consolidation. Calcified pulmonary granulomas. The tracheobronchial tree and hilar structures are normal. Pleura: No pleural effusion or pneumothorax. Heart and Mediastinum: The cardiomediastinal silhouette is normal. The great vessels of the thorax are normal. Abdomen: Nonobstructive bowel gas pattern. No free air. Bones and Soft Tissues: The bones and soft tissues are within normal limits. IMPRESSION: Nonobstructive bowel gas pattern. No free air. No focal airspace disease. Electronically signed by: Conrado Duarte MD (01/30/2019 9:58 PM) [facility] DICTATED AND SIGNED BY: CONRADO DUARTE MD DATE: 01/30/192157 CC: CAMERON PENNY MD; RAMSEY ACEVEDO MD ~ Course & Med Decision Making Course & Med Decision Making Pertinent Labs and Imaging studies reviewed. (See chart for details) Pt. Admitted to Dr. Penny for further eval and tx. Rehydration. Seizure precautions, Encourage pt. to get rehab. for alcohol abuse. Will get US abd, legs in AM. Marked improvement while in ED. Will defer CT at this time, but may need if increased symptoms. Impression: 1. Nausea / Vomiting 2. Abd. Pain 3. Alcohol Abuse= currently 240 4. Gastritis 5. Elevated AST,ALT, Thee, Alk Phos- Hx. Alcohol Hepatitis 6. Hypomagnesium 1.7 7. Dehydration 8. Elevated D-dimer 2.16 9. Past Hx. of Alcohol withdrawal Seizures 10.Thrombocytopenia 122 11. Anxiety 12. Hx of Ulcerative Colitis [] Dragon Disclaimer Dragon Disclaimer This electronic medical record was generated, in whole or in part, using a voice recognition dictation system. Departure Departure: Disposition: HOME/RESIDENCE PRIOR TO ADM Condition: STABLE Referrals: CAMERON PENNY MD (PCP) RAMSEY ACEVEDO MD Jan 30, 2019 20:39
[2019-01-30] MEDS ORDERED: IV RINGERS SOLUTION,LACTATED 1,000 ML IV SCH (20:42)
[2019-01-30] MEDS ORDERED: ONDANSETRON PF 4 MG/2 ML VIAL. IVP ONE ×2 (20:45→23:15)
[2019-01-30] MEDS ORDERED: FAMOTIDINE 20 MG/2 ML VIAL IVP ONE (20:45)
[2019-01-30 21:52] LABS: BASO % 1 % (0-3); EOS % 1 % (0-3); HEMATOCRIT 46.5 % (36.0-47.0); HEMOGLOBIN 15.9 g/dL (12.0-15.5); LYMPH # 0.8 x10^3/uL (1.0-4.8); LYMPH % 23 % (24-48); MEAN CORPUSCULAR HEMOGLOBIN 38 pg (25-35); MEAN CORPUSCULAR HGB CONC 34 g/dL (31-37); MEAN CORPUSCULAR VOLUME 111 fL (79-100); MONO # 0.4 x10^3/uL (0.0-1.1); MONO % 11 % (0-9); NEUT # 2.1 x10^3uL (1.8-7.7); NEUT % 64 % (31-73); PLATELET COUNT 122 x10^3/uL (140-400); RED BLOOD COUNT 4.18 x10^6/uL (3.50-5.40); RED CELL DISTRIBUTION WIDTH 14.9 % (11.5-14.5); WHITE BLOOD COUNT 3.3 x10^3/uL (4.0-11.0)
--- NOTE | 2019-01-30 22:01 | RAD ---
CHEST PA LATERAL, ABDOMEN SUPINE UPRIGHT INDICATION: Pain, nausea and vomiting, history of Crohn's. COMPARISON STUDY: Chest radiograph 06/11/2018. FINDINGS: Lungs: Normal lung volume. No pulmonary mass or consolidation. Calcified pulmonary granulomas. The tracheobronchial tree and hilar structures are normal. Pleura: No pleural effusion or pneumothorax. Heart and Mediastinum: The cardiomediastinal silhouette is normal. The great vessels of the thorax are normal. Abdomen: Nonobstructive bowel gas pattern. No free air. Bones and Soft Tissues: The bones and soft tissues are within normal limits. IMPRESSION: Nonobstructive bowel gas pattern. No free air. No focal airspace disease. Electronically signed by: Mario Duarte MD (01/30/2019 9:58 PM) [facility]
[2019-01-30 22:13] LABS: PLT ESTIMATE DECREASED (ADEQUATE)
[2019-01-30 22:32] LABS: ALBUMIN 3.8 g/dL (3.4-5.0); CALCIUM 8.8 mg/dL (8.5-10.1); CREATININE 0.6 mg/dL (0.6-1.0); DIRECT BILIRUBIN 0.7 mg/dL (0.0-0.2); GFR 109.1; MAGNESIUM 1.7 mg/dL (1.8-2.4); POTASSIUM 4.3 mmol/L (3.5-5.1); TOTAL BILIRUBIN 2.3 mg/dL (0.2-1.0); TOTAL PROTEIN 8.3 g/dL (6.4-8.2)
[2019-01-30] MEDS ORDERED: ENOXAPARIN ** NOTE DOSE ** SYRINGE SQ STA ×2 (23:57)
[2019-01-31] MEDS ORDERED: diphenhydrAMINE 50 MG/ML VIAL IV PRN
[2019-01-31] MEDS ORDERED: ONDANSETRON PF 4 MG/2 ML VIAL. IV PRN
[2019-01-31] MEDS ORDERED: PROCHLORPERAZINE 10 MG/2 ML VIAL. IV PRN
[2019-01-31] MEDS ORDERED: ENOXAPARIN ** NOTE DOSE ** SYRINGE SQ ONE (00:50)
[2019-01-31] MEDS: IV RINGERS SOLUTION,LACTATED 1,000 ML IV SCH ×3 (00:57→10:45)
[2019-01-31] MEDS ORDERED: diphenhydrAMINE 50 MG/ML VIAL IVP PRN (01:15)
[2019-01-31] MEDS ORDERED: chlordiazePOXIDE HCL 25 MG CAPSULE PO PRN ×2 (01:15)
[2019-01-31] MEDS ORDERED: cloNIDine HCL 0.1 MG TABLET PO PRN (01:15)
[2019-01-31 01:19] VITALS: BP_SYST 118; BP_SYST 126; BP_DIAS 75; BP_DIAS 86
[2019-01-31] MEDS ORDERED: MAGNESIUM SULFATE 2GM 50 ML IV ONE (01:30)
--- NOTE | 2019-01-31 01:54 | NUR ---
The patient, ZAK MANZANARES, 43 y/o, F admitted by CAMERON PENNY MD, was given written information regarding hospital policies, unit procedures and contact persons. PT admitted to [address] [place] [address] via EMS. Pt stable upon arrival. Pt is complaining of N/V at this time. Pt states she is very anxious while in the hospital. Valuables were checked and left with patient.
[2019-01-31 05:25] VITALS: BP 118/81
[2019-01-31] MEDS ORDERED: IPRATRPIUM/ALBUTEROL 0.5/2.5MG 3 ML NEBU. ONE (05:42)
[2019-01-31] MEDS: IPRATRPIUM/ALBUTEROL 0.5/2.5MG 3 ML NEBU. NEB SCH ×4 (05:48→20:00)
[2019-01-31 06:45] LABS: CALCIUM 7.4 mg/dL (8.5-10.1); CREATININE 0.6 mg/dL (0.6-1.0); GFR 109.1
[2019-01-31 06:46] LABS: BASO % 1 % (0-3); EOS % 1 % (0-3); HEMATOCRIT 34.7 % (36.0-47.0); HEMOGLOBIN 11.8 g/dL (12.0-15.5); LYMPH # 0.6 x10^3/uL (1.0-4.8); LYMPH % 18 % (24-48); MEAN CORPUSCULAR HEMOGLOBIN 38 pg (25-35); MEAN CORPUSCULAR HGB CONC 34 g/dL (31-37); MEAN CORPUSCULAR VOLUME 111 fL (79-100); MONO # 0.2 x10^3/uL (0.0-1.1); MONO % 7 % (0-9); NEUT # 2.6 x10^3uL (1.8-7.7); NEUT % 74 % (31-73); PLATELET COUNT 81 x10^3/uL (140-400); RED BLOOD COUNT 3.12 x10^6/uL (3.50-5.40); WHITE BLOOD COUNT 3.5 x10^3/uL (4.0-11.0)
[2019-01-31 06:47] LABS: POTASSIUM 2.5 mmol/L (3.5-5.1)
[2019-01-31 07:31] LABS: ALBUMIN 2.7 g/dL (3.4-5.0); CALCIUM 7.3 mg/dL (8.5-10.1); CREATININE 0.6 mg/dL (0.6-1.0); GFR 109.1; TOTAL BILIRUBIN 2.4 mg/dL (0.2-1.0); TOTAL PROTEIN 5.5 g/dL (6.4-8.2)
[2019-01-31 07:33] LABS: POTASSIUM 2.5 mmol/L (3.5-5.1)
--- NOTE | 2019-01-31 07:41 | NUR ---
Lab called a critical potassium of 2.5 at 0645 this am; Dr. Bustamante was notified by NAYELI Jenkins and orders to follow replacement protocol were received. Lab was repeated to verify critical result before replacement. Critical results received at 0740 and potassium level was the same. Electrolyte replacement protocol was ordered and will administer.
[2019-01-31] MEDS ORDERED: FLU VAX QS 2019-20 (36MOS+)/PF 0.5 ML SYRINGE. VAX IM ONE (09:00)
[2019-01-31 09:18] LABS: BARBITURATES NEG (NEG); BENZODIAZEPINES NEG (NEG); CANNABINOIDS NEG (NEG); COCAINE NEG (NEG); METHADONE NEG (NEG); OPIATES NEG (NEG); PHENCYCLIDINE NEG (NEG)
[2019-01-31 09:19] LABS: AMPHETAMINE/METHAMPHETAMINE NEG (NEG)
[2019-01-31] MEDS: MVI, ADULT NO.4 WITH VIT K 10 ML, FOLIC ACID SYRINGE for ER 1 MG, THIAMINE INJ 100 MG i... IV SCH ×4 (09:20)
[2019-01-31] MEDS: POTASSIUM CHLORIDE 10MEQ 100 ML IV SCH ×4 (09:21→12:52)
[2019-01-31] MEDS: FAMOTIDINE 20 MG/2 ML VIAL IVP SCH ×2 (09:21→20:05)
[2019-01-31 09:28] LABS: BACTERIA,URINE MOD /HPF (0-FEW); BILIRUBIN,URINE SMALL (NEG); CLARITY,URINE HAZY; COLOR,URINE AMBER; GLUCOSE,URINE NEG (NEG); NITRITE,URINE NEG (NEG); RBC,URINE 0 /HPF (0-2); SQUAMOUS EPITHELIAL CELL,UR MOD /LPF; UROBILINOGEN,URINE 4 mg/dL (0.2 mg/dL)
[2019-01-31] MEDS: SUCRALFATE 1 GM TABLET. PO SCH ×4 (09:33→20:05)
[2019-01-31 11:24] VITALS: BP 143/93
[2019-01-31] MEDS ORDERED: ELECTROLYTE (NON-ICU) PROTOCOL MC PRN (12:30)
--- NOTE | 2019-01-31 12:37 | RAD ---
Bilateral lower extremity venous Doppler ultrasound History: Leg swelling, elevated d-dimer. Comparison: None. Procedure: Color flow Doppler, Doppler spectral analysis, and 2D images are obtained with and without compression in the area of the common femoral vein, superficial femoral vein - femoral vein junction, main femoral vein (superficial femoral vein) and popliteal vein. Veins of the proximal calf are also imaged. Findings: There is normal color flow, augmentation, and compressibility of all visualized vein segments. No evidence of deep venous thrombus is present. IMPRESSION: No evidence of right or left lower extremity deep venous thrombosis. Electronically signed by: Isma Tucker MD (01/31/2019 12:34 PM) [facility]
--- NOTE | 2019-01-31 13:03 | RAD ---
Right upper quadrant abdominal ultrasound History: Elevated liver function tests. Comparison: CT abdomen and pelvis with contrast January 15, 2019. Technique: Transabdominal ultrasound images are obtained. Findings: Visualized pancreas is unremarkable. Liver is increased in echogenicity. Right hepatic lobe measures 19.4 cm. There is gallbladder sludge. No significant gallbladder wall thickening. No pericholecystic fluid. Sonographic Cuadra sign is negative. Common bile duct caliber is normal measuring 5 mm in diameter. The right kidney measures 11.3 cm in length and is without evidence of obstruction. The cortical echotexture is normal. The IVC is unremarkable. IMPRESSION: 1. Hepatomegaly and fatty infiltration of the liver. 2. Gallbladder sludge. Electronically signed by: Isma Tucker MD (01/31/2019 1:00 PM) [facility]
[2019-01-31] MEDS ORDERED: ONDANSETRON ODT 4 MG TAB.RAPDIS PO PRN ×2 (15:45)
[2019-01-31 16:28] VITALS: BP 106/71
[2019-01-31] MEDS: HALOPERIDOL LACT 5 MG/ML VIAL. IM PRN ×2 (16:31→21:23)
--- NOTE | 2019-01-31 18:00 | NUR ---
Pt extremely anxious and impulsive, c/o needing to go to the bathroom, getting up out of bed. Haldol and Ativan given. Pt unsteady on feet. Purewick inserted on patient for safety and comfort. Pts in room at bedside.
[2019-01-31 19:34] VITALS: BP 135/95
[2019-01-31 19:57] LABS: MAGNESIUM 1.5 mg/dL (1.8-2.4)
[2019-01-31] MEDS: MIRTAZAPINE 15 MG TABLET PO SCH (19:59)
[2019-01-31 20:00] LABS: POTASSIUM 2.5 mmol/L (3.5-5.1)
[2019-01-31] MEDS: MAGNESIUM OXIDE 400 MG TABLET PO SCH (20:05)
[2019-01-31] MEDS: LORazepam 0.5 MG TABLET PO SCH (20:05)
[2019-01-31] MEDS: POTASSIUM BICARB 20 MEQ EFFERVESCENT TABLET. FT SCH (20:13)
--- NOTE | 2019-01-31 20:30 | NUR ---
When came on shift patient was resting in bed with and sitter at bedside. Got a critical result on patients potassium, per protocol replaced and patient had a critical mag as well which she was already getting magnesium replacement per protocol recommendations. Will continue to monitor.
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
--- NOTE | 2019-01-31 21:30 | NUR ---
Patient very anxious, pulled purewick out so we left it out. Got patient up to commode with 2 person assist. Patient heart rate went up and patient was stating that she had friends in her blanket. Gave patient PRN haldol and clonidine. Sitter at bedside. Will continue to monitor.
--- NOTE | 2019-01-31 22:17 | HP ---
ADMIT DATE: 01/31/2019 HISTORY OF PRESENT ILLNESS: A 43-year-old female, who came in through the Emergency Room, apparently a young lady who has been drinking too much, complained of nausea, vomiting, dizzy spells. The patient has had frequent alcohol use and seizures from her alcohol withdrawal in the past. The patient admits to heavy use of alcohol the night before coming in and did not eat, but did vomit. The patient notes that she got sick. She denies any black tarry stools. The patient was dry heaving. The patient has had previous history obviously as noted above. She was admitted for further evaluation and make further evaluation for the situation. PAST MEDICAL AND SURGICAL HISTORY: Alcoholism, gastritis, seizure secondary to withdrawal, alcohol abuse, nausea, vomiting. She has had a history of hepatitis, GERD, depression and anxiety. Other history includes that of colitis, carpal tunnel syndrome, bilateral ankle fractures with plates and screws, psychiatric problems, possible Lyme disease and Clostridium difficile toxin problem with colitis. The patient has a history surgical of an umbilical hernia repair and possible also ulcerative colitis. ALLERGIES: PENICILLIN. FAMILY HISTORY: Cardiovascular disease. SOCIAL HISTORY: The patient as noted has severe alcohol binges, had a recent one here in the last night. Apparently, she also smokes probably about a pack a day, heavy alcohol use. REVIEW OF SYSTEMS: The patient just feels tired, worn out. Denies abdominal cramping. No seizure activity at the present time, does feel dehydrated and the like. PHYSICAL EXAMINATION: GENERAL: This is a very pleasant female looking younger than her stated age, very frail. VITAL SIGNS: Blood pressure 140/108, respiratory rate 24, pulse upwards of 102, afebrile, good oxygen saturation. HEENT: The patient's head is atraumatic, normocephalic. Eyes: PERRLA without jaundice. The mouth and throat are normal. Dry mucous membranes. NECK: Supple. No JVD or thyromegaly. LUNGS: Diminished throughout, but clear. CARDIOVASCULAR: Regular sinus rhythm. ABDOMEN: Soft, diffuse tenderness throughout, but no rebound or guarding. Positive bowel sounds. No diarrhea. EXTREMITIES: No clubbing, cyanosis or edema. NEUROLOGIC: The patient is alert and oriented x 3. She has good insight into her situation and has tried multiple times to come off the alcohol. LABORATORY DATA: Shows potassium of 2.5, sodium 140, BUN and creatinine of 9 and 0.6, magnesium 1.7, total bilirubin 2.3, AST of 225, ALT of 70. TSH of 5.6, albumin of 2.7. Troponin greater than 2. Hemoglobin and hematocrit of 11 and 34, white count 3. Urine has ketones. Ethyl alcohol level of greater than 240. IMAGING STUDIES: The patient had positive D-dimer. Negative for DVTs in the legs. The patient's ultrasound of gallbladder shows sludge and hepatomegaly with fatty infiltrate of the liver. Nonobstructive bowel pattern on x-ray. Chest x-ray basically unremarkable, no disease there. IMPRESSION: Inebriation secondary to alcohol abuse, hypokalemia, severe protein malnutrition, hypothyroidism, elevated liver enzymes, probable cirrhosis of the liver, hyperbilirubinemia, depression, anxiety, ketogenic. She denies suicidal or homicidal ideation, but she does have a very depressed affect. She presently also has a history of megaloblastic anemia, thrombocytopenia. Sinus tachycardia. PLAN: The patient will be monitored carefully and given IV fluids. We will continue to monitor her. Cardiac and psychiatric evaluation. Her home medications include Remeron 15 lorazepam p.r.n., potassium chloride, multivitamins, diphenhydramine, DuoNeb treatments, clonidine 0.1 p.r.n. for blood pressure. Started her on naltrexone. Increased her Remeron to 15. She also has history of use of Haldol 5 mg IM p.r.n. for agitation, Librium 100 mg p.r.n. per protocol. WA protocol and make further evaluation on her. Try to get Dr. Dick if he has time to review this very nice young lady to see if we can provide her with other help. CAMERON PENNY MD DR: YVETTE/chidi JOB#: [id number] / [id number]
[2019-01-31 22:19] VITALS: BP 130/94
[2019-01-31] MEDS ORDERED: METOPROLOL TARTRATE 5 MG/5 ML VIAL. IV ONE (22:45)
--- NOTE | 2019-01-31 22:45 | NUR ---
Patient heart rate kept going up, it went up to 165 at it's highest point. Called Dr. Bustamante and got a new order for IV metoprolol IV push 1 time. Will continue to monitor closely. 1 to 1 sitter still at bedside.
--- NOTE | 2019-01-31 23:10 | CONS ---
DATE OF CONSULTATION: 01/31/2019 This note covers elements not covered in my initial note 01/31. IDENTIFYING DATA: The patient is a 43-year-old female seen in room 125, 1 [facility], for a psychiatric consult requested by Dr. Bustamante on account of her alcohol withdrawal syndrome, anxiety, depression within the context of her GERD, hepatitis, seizure disorder. CHIEF COMPLAINT: "Yes, I do drink alcohol more than I should. I drink 6 beers and half a pint of whiskey. 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 I live with my . I have been to the [facility] in [place] in 01/2017. They treated me on naltrexone and it helped me stay off the alcohol, but I stopped it. I have also been on Zoloft in the past." HISTORY OF PRESENT ILLNESS: Reportedly, the patient has been drinking as noted above and came in through the ER with complaints of nausea, vomiting, dizzy spells; history of alcohol withdrawal, shakes and past history of seizures from alcohol withdrawal. No reported DUIs or DTs per patient. No history of trauma. No clear history of bipolar disorder. PAST PSYCHIATRIC HISTORY: In addition to naltrexone, she has been treated on Zoloft in the past. PAST MEDICAL HISTORY: I have reviewed the ER records and rest of the medical record. She does have a history of GERD, hepatitis, seizure disorder. Also has a history of ulcerative colitis, C. diff colitis. PAST SURGICAL HISTORY: Umbilical hernia. ALLERGIES: PENICILLIN. FAMILY HISTORY: Noncontributory. SOCIAL HISTORY: Smokes less than 1 pack a day. 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 Alcohol use noted above. MENTAL STATUS EXAMINATION: The patient was seen individually. She is extremely anxious, restless, tremulous, oriented to herself and situation. Speech has some latency, coherent, often responses monosyllabic. Abstraction fair, computation impaired. Attention span short. No suicidal or homicidal ideation. No active psychotic symptoms. LABORATORY DATA: Reviewed. IMPRESSION: Alcohol withdrawal syndrome; history of major depressive disorder; alcohol dependence; anxiety disorder, unspecified. Rest as above. RECOMMENDATIONS: Currently, patient is on the alcohol detox protocol and I would suggest continuing with this. She may benefit from being on naltrexone once she has completed the detoxification and she will need outpatient alcohol rehabilitation therapy that should be arranged prior to her discharge. Rest I will defer to Dr. Bustamante for medical followup. Dr. Bustamante, thank you for the opportunity to participate in your patient's care. MAN Fara REYNOLDS MD DR: DERIK/chidi JOB#: [id number] / [id number]
[2019-02-01] MEDS: POTASSIUM BICARB 20 MEQ EFFERVESCENT TABLET. FT SCH (00:06)
[2019-02-01 05:46] LABS: MAGNESIUM 1.7 mg/dL (1.8-2.4); POTASSIUM 3.2 mmol/L (3.5-5.1)
[2019-02-01 05:52] VITALS: BP 109/79
[2019-02-01] MEDS: POTASSIUM CHLORIDE 20 MEQ TABLET.ER. PO SCH (08:00)
[2019-02-01] MEDS ORDERED: POTASSIUM BICARB 20 MEQ EFFERVESCENT TABLET. FT ONE (08:00)
[2019-02-01] MEDS: MULTIVITAMIN with MINERAL TABLET. PO SCH (08:13)
[2019-02-01] MEDS: SUCRALFATE 1 GM TABLET. PO SCH ×4 (08:14→21:55)
[2019-02-01] MEDS: LORazepam 0.5 MG TABLET PO SCH ×2 (08:14→21:00)
[2019-02-01] MEDS: MAGNESIUM OXIDE 400 MG TABLET PO SCH ×2 (08:14→21:55)
[2019-02-01] MEDS: NALTREXONE HCL 50 MG TABLET PO SCH (08:14)
[2019-02-01] MEDS: FAMOTIDINE 20 MG/2 ML VIAL IVP SCH ×2 (08:14→21:55)
--- NOTE | 2019-02-01 10:17 | RAD ---
CT of the abdomen and pelvis without contrast. 02/01/2019 1:00 PM Indication: Abdominal pain Comparison Study: Multiple prior CT exams of the abdomen, most recently January 15, 2019 Technique: Multidetector CT imaging of the abdomen pelvis is obtained without administration of contrast. Findings: The visualized bilateral lung bases are clear. Severe hepatic steatosis is seen, similar to comparison study. The spleen, bilateral adrenal glands, gallbladder, and pancreas demonstrate no acute changes from prior exam. The bilateral kidneys are grossly unremarkable in appearance. There is no evidence of nephrolithiasis or obstructive uropathy. The ureters are normal in course and caliber. The bladder is grossly unremarkable. There is no significant free fluid or free air in the abdomen or pelvis. There is no evidence of bowel obstruction or significant inflammatory change involving the bowel. The appendix is well visualized and grossly normal. There is no acute osseous abnormalities identified. Impression: 1. No evidence of acute intra-abdominal abnormality. 2. No evidence of nephrolithiasis or acute obstructive uropathy. 3. Hepatic steatosis, similar to comparison studies CT DOSING PQRS STATEMENT: One or more of the following individualized dose reduction techniques were utilized for this examination: 1. Automated exposure control 2. Adjustment of the mA and/or kV according to patient size 3. Use of iterative reconstruction technique Electronically signed by: Ronny Barton MD (02/01/2019 10:14 AM) [id number]
[2019-02-01 10:39] VITALS: BP 101/72
[2019-02-01] MEDS: MVI, ADULT NO.4 WITH VIT K 10 ML, FOLIC ACID SYRINGE for ER 1 MG, THIAMINE INJ 100 MG i... IV SCH ×4 (10:43)
[2019-02-01 12:26] LABS: BACTERIA,URINE 0 /HPF (0-FEW); BILIRUBIN,URINE NEG (NEG); CLARITY,URINE HAZY; COLOR,URINE YELLOW; GLUCOSE,URINE NEG (NEG); NITRITE,URINE NEG (NEG); SQUAMOUS EPITHELIAL CELL,UR MANY /LPF; UROBILINOGEN,URINE 4 mg/dL (0.2 mg/dL)
--- NOTE | 2019-02-01 14:45 | NUR ---
NURSING NOTE PT HEART RATE INCREASES WHEN PT IS OUT OF BED TO REST ROOM 150'S. PT IS ABOUT 110'S AT REST. PHONED DR PENNY, ORDERS OBTAINED FOR EKG, TROP SERIES, AND NS AT 200. NAYELI JAMES.
[2019-02-01] MEDS: IV NORMAL SALINE 1,000ML 1,000 ML IV SCH ×2 (15:00→18:01)
[2019-02-01 15:11] VITALS: BP 116/82
--- NOTE | 2019-02-01 18:29 | NUR ---
NURSING NOTE SPOKE WITH PT. PT DENIES INTEREST IN REHAB. PT MOTHER AND SIGNIFICANT OTHER HERE TO SPEAK WITH PT AND WITH PATIENT PERMISSION, THIS NURSE SPOKE WITH THEM. INFORMED THEM THAT PT DECLINED REHAB INFORMATION AND STATES THAT SHE WILL NOT GO TO AN INPATIENT FACILITY. PT MOTHER STATES SHE DOES NOT HAVE INSURANCE AND WOULD LIKE TO SPEAK WITH CASE-MANAGEMENT ABOUT [employer]. INFORMED PT FAMILY SHE IS OUT OF THE OFFICE FOR THE NIGHT AND WILL RETURN TOMORROW. NAYELI JAMES.
[2019-02-01 19:11] VITALS: BP 131/91
--- NOTE | 2019-02-01 21:03 | PDOC ---
Exam Note: Yariel Note: Please also refer to the separate dictated note~for this date of service dictated separately.~Patient seen individually. Discussed the patient with Nursing staff reviewed the chart.~Reviewed interim history and current functioning. Reviewed vital signs,~Labs/ Radiology~and current medications noted below. Continue current treatment with the changes noted in the dictated addendum note Assessment: Vital Signs/I&O: Vital Signs Date Time Temp Pulse Resp B/P (MAP) Pulse Ox O2 Delivery O2 Flow Rate FiO2 02/01/19 19:11 98.2 106 16 131/91 (104) 99 Room Air I & O 01/31/19 01/31/19 02/01/19 15:00 23:00 07:00 Intake Total 2699 ml 0 ml Output Total 1050 ml Balance 1649 ml 0 ml Labs: Laboratory Tests Test 02/01/19 05:20 02/01/19 11:28 02/01/19 15:40 Potassium Level 3.2 mmol/L (3.5-5.1) L Magnesium Level 1.7 mg/dL (1.8-2.4) L Urine Collection Type Unknown Urine Color Yellow Urine Clarity Hazy Urine pH >8.5 Urine Specific [place] 1.010 Urine Protein 30 mg/dl (NEG-TRACE) Urine Glucose (UA) Neg mg/dL (NEG) Urine Ketones (Stick) Neg mg/dL (NEG) Urine Blood Neg (NEG) Urine Nitrite Neg (NEG) Urine Bilirubin Neg (NEG) Urine Urobilinogen Dipstick 4 mg/dL (0.2 mg/dL) Urine Leukocyte Esterase Neg (NEG) Urine RBC 1-2 /HPF (0-2) Urine WBC 5-10 /HPF (0-4) Urine Squamous Epithelial Cells Many /LPF Urine Bacteria 0 /HPF (0-FEW) Troponin I Quantitative < 0.017 ng/mL (0-0.055) Current Medications: Meds: Current Medications Medications (Trade) Dose Ordered Sig/Shelley Route PRN Reason Start Time Stop Time Status Last Admin Dose Admin Multivitamins/ Calcium (Thera-M Plus) 1 tab DAILY PO 02/01/19 09:00 02/01/19 08:13 Naltrexone HCl (ReVia) 50 mg DAILY PO 02/01/19 09:00 02/01/19 08:14 Metoprolol Tartrate (Lopressor Vial) 5 mg 1X ONCE IV 01/31/19 22:45 01/31/19 22:46 DC 01/31/19 22:38 Potassium Bicarbonate (Potassium Effervescent Tablet) 40 meq 1X ONCE FT 02/01/19 08:00 02/01/19 08:01 DC 02/01/19 08:13 Sodium Chloride 1,000 ml @ 200 mls/hr Q5H IV 02/01/19 15:00 02/01/19 18:01 I have reviewed the current psychotropics carefully including drug interactions. Risk benefit ratio favors no change other than as noted in my dictated progress note. Diagnosis: Problems: (1) Major depressive disorder, recurrent episode (2) Alcohol withdrawal syndrome (3) Alcohol dependence (4) Anxiety disorder, unspecified NICKOLAS REYNOLDS MD Feb 01, 2019 21:03
--- NOTE | 2019-02-01 21:38 | PDOC ---
Exam Note: Yariel Note: Late entry for 02/01/2019 DOS is an error. Please ignore. Please also refer to the separate dictated note~for this date of service dictated separately.~Patient seen individually. Discussed the patient with Nursing staff reviewed the chart.~Reviewed interim history and current functioning. Reviewed vital signs,~Labs/ Radiology~and current medications noted below. Continue current treatment with the changes noted in the dictated addendum note Assessment: Vital Signs/I&O: Vital Signs Date Time Temp Pulse Resp B/P (MAP) Pulse Ox O2 Delivery O2 Flow Rate FiO2 02/01/19 19:11 98.2 106 16 131/91 (104) 99 Room Air I & O 01/31/19 01/31/19 02/01/19 15:00 23:00 07:00 Intake Total 2699 ml 0 ml Output Total 1050 ml Balance 1649 ml 0 ml Labs: Laboratory Tests Test 02/01/19 05:20 02/01/19 11:28 02/01/19 15:40 Potassium Level 3.2 mmol/L (3.5-5.1) L Magnesium Level 1.7 mg/dL (1.8-2.4) L Urine Collection Type Unknown Urine Color Yellow Urine Clarity Hazy Urine pH >8.5 Urine Specific [place] 1.010 Urine Protein 30 mg/dl (NEG-TRACE) Urine Glucose (UA) Neg mg/dL (NEG) Urine Ketones (Stick) Neg mg/dL (NEG) Urine Blood Neg (NEG) Urine Nitrite Neg (NEG) Urine Bilirubin Neg (NEG) Urine Urobilinogen Dipstick 4 mg/dL (0.2 mg/dL) Urine Leukocyte Esterase Neg (NEG) Urine RBC 1-2 /HPF (0-2) Urine WBC 5-10 /HPF (0-4) Urine Squamous Epithelial Cells Many /LPF Urine Bacteria 0 /HPF (0-FEW) Troponin I Quantitative < 0.017 ng/mL (0-0.055) Current Medications: Meds: Current Medications Medications (Trade) Dose Ordered Sig/Shelley Route PRN Reason Start Time Stop Time Status Last Admin Dose Admin Multivitamins/ Calcium (Thera-M Plus) 1 tab DAILY PO 02/01/19 09:00 02/01/19 08:13 Naltrexone HCl (ReVia) 50 mg DAILY PO 02/01/19 09:00 02/01/19 08:14 Metoprolol Tartrate (Lopressor Vial) 5 mg 1X ONCE IV 01/31/19 22:45 01/31/19 22:46 DC 01/31/19 22:38 Potassium Bicarbonate (Potassium Effervescent Tablet) 40 meq 1X ONCE FT 02/01/19 08:00 02/01/19 08:01 DC 02/01/19 08:13 Sodium Chloride 1,000 ml @ 200 mls/hr Q5H IV 02/01/19 15:00 02/01/19 18:01 I have reviewed the current psychotropics carefully including drug interactions. Risk benefit ratio favors no change other than as noted in my dictated progress note. Diagnosis: Problems: (1) Alcohol dependence (2) Alcohol withdrawal syndrome (3) Major depressive disorder, recurrent episode (4) Anxiety disorder, unspecified NICKOLAS REYNOLDS MD Feb 01, 2019 21:38
[2019-02-01] MEDS: MIRTAZAPINE 15 MG TABLET PO SCH (21:55)
[2019-02-01 22:46] VITALS: BP 136/98
[2019-02-02] MEDS: IV NORMAL SALINE 1,000ML 1,000 ML IV SCH ×4 (00:17→15:34)
[2019-02-02 05:24] VITALS: BP 138/99
--- NOTE | 2019-02-02 06:10 | EKG ---
[address] [address] Test Date: 2019-02-01 Test Time: 16:16:50 Pat Name: ZAK MANZANARES Department: Room: 125 A Gender: F Vp Security: : 1975 Requested By: CAMERON PENNY Order Number: [id number] Reading MD: Irwin López MD Measurements Intervals [place] Rate: 103 P: 40 VA: 154 QRS: 67 QRSD: 72 T: 37 QT: 354 QTc: 466 Interpretive Statements SINUS TACHYCARDIA Electronically Signed On 02-02-2019 10:47:15 CONTINUITY CLERK by Irwin López MD
--- NOTE | 2019-02-02 06:14 | EKG ---
[address] [address] Test Date: 2019-01-30 Test Time: 21:54:10 Pat Name: ZAK MANZANARES Department: Room: 125 A Gender: F Taxation Accountant: : 1975 Requested By: RAMSEY ACEVEDO Order Number: [id number] Reading MD: Irwin López MD Measurements Intervals [place] Rate: 93 P: 3 RI: 166 QRS: 62 QRSD: 78 T: 66 QT: 396 QTc: 495 Interpretive Statements SINUS RHYTHM NON-SPECIFIC ST/T CHANGES PROLONGED QT Electronically Signed On 02-02-2019 11:04:22 CORRECTIONAL OFFICER LIEUTENANT by Irwin López MD
[2019-02-02 06:29] LABS: CALCIUM 7.7 mg/dL (8.5-10.1); CREATININE 0.4 mg/dL (0.6-1.0); GFR 174.2; POTASSIUM 3.3 mmol/L (3.5-5.1)
[2019-02-02] MEDS: MAGNESIUM OXIDE 400 MG TABLET PO SCH (07:28)
[2019-02-02] MEDS: SUCRALFATE 1 GM TABLET. PO SCH ×3 (07:28→17:24)
[2019-02-02] MEDS: MULTIVITAMIN with MINERAL TABLET. PO SCH (07:29)
[2019-02-02] MEDS: POTASSIUM CHLORIDE 20 MEQ TABLET.ER. PO SCH (07:29)
[2019-02-02] MEDS: FAMOTIDINE 20 MG/2 ML VIAL IVP SCH (07:29)
[2019-02-02] MEDS: LORazepam 0.5 MG TABLET PO SCH (07:38)
[2019-02-02] MEDS: NALTREXONE HCL 50 MG TABLET PO SCH (08:30)
[2019-02-02] MEDS ORDERED: MVI, ADULT NO.4 WITH VIT K 10 ML, FOLIC ACID SYRINGE for ER 1 MG, THIAMINE INJ 100 MG i... IV SCH ×4 (09:00)
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
[2019-02-02 10:37] VITALS: BP 112/80
--- NOTE | 2019-02-02 10:38 | NUR ---
NURSING NOTE CONSULT CARDIOLOGY. DR MORGAN WILL SEE PT TODAY. NAYELI JAMES.
--- NOTE | 2019-02-02 11:37 | NUR ---
NURSING NOTE SPOKE WITH DR MORGAN WHO SPOKE WITH DR PENNY. PT HAS OPTIONS OF GOING HOME ON HOSPICE, STAYING AND GETTING NUTRITION AND TREATMENT, LEAVING AMA, OR STAYING AND GETTING SCREENED FOR PSYCH EVALUATION. PT STATES "ABSOLUTELY FUCKING NOT ON THE PSYCH, I WILL NOT DO THAT". PT STATES "I NEED TO GET A JOB AND I NEED TO GO HOME". PT STATES SHE WANTS TO LEAVE AMA. CALLED TO SPEAK WITH PT FAMILY. YUMI STATES SHE WOULD LIKE HER TO STAY AND GET TREATED. THIS NURSE ASKED PT IF SHE COULD COME IN AND TALK TO THE PATIENT. PT STATES SHE WILL BE OFF WORK AROUND 330 AND WILL BE HERE SOMETIME THIS EVENING IF PT DOESNT BECOME COMBATIVE. PT STATES LAST TIME SHE GOT UP AND LEFT IN HER GOWN. PT STATES SHE WILL HAVE PT MOTHER CALL AND SEE IF SHE CAN COME TO TALK WITH HER. NAYELI JAMES.
[2019-02-02 15:32] VITALS: BP 139/98
--- NOTE | 2019-02-02 18:33 | NUR ---
NURSING NOTE DISCHARGE PT HAS BEEN DISCHARGED HOME VIA WHEELCHAIR ACCOMPANIED BY . PT FAMILY GIVEN INFORMATION ABOUT REHAB. PT IS ENCOURAGED TO GO TO REHAB AND GET HELP. PT FAMILY MEMBER WAS NOT COMFORTABLE TO TAKE PT HOME. PT FAMILY INFORMED THAT PT HAS BEEN MEDICALLY CLEARED. PT HAS BEEN TURNING TO ALCOHOL FOR 10 YEARS ACCORDING TO PT AND HAS BEEN ADMITTED IN THE PAST FOR ALCOHOL INTOXICATION. PT NEEDS TO GO TO REHAB AND GET HELP. PT FAMILY GIVEN INFORMATION ABOUT [facility] TO TAKE PT FOR AN EVALUATION TO BE ADMITTED FOR ALCOHOL REHABILITATION. PT WAS GIVEN WRITTEN AND VERBAL DISCHARGE INSTRUCTIONS. NAYELI JAMES.
--- NOTE | 2019-02-05 08:53 | EKG ---
[address] [address] Test Date: 2019-01-30 Test Time: 21:54:10 Pat Name: ZAK MANZANARES Department: Room: 125 A Gender: F Realtime Court Reporter: : 1975 Requested By: CAMERON PENNY Order Number: [id number] Reading MD: Edgardo Vasquez Measurements Intervals [place] Rate: 93 P: 3 NE: 166 QRS: 62 QRSD: 78 T: 66 QT: 396 QTc: 495 Interpretive Statements SINUS RHYTHM NONSPECIFIC ST-T WAVE CHANGES. PROLONGED QT Electronically Signed On 03-02-2019 11:48:43 CLIENT DEVELOPMENT MANAGER by Edgardo Vasquez
--- NOTE | 2019-02-23 02:38 | DS ---
DATE OF DISCHARGE: 02/02/2019 HOSPITAL COURSE: This is a 43-year-old female who came into the Emergency Room, admitted drinking too much and ____ from alcohol intoxication. The patient has had a history of seizure activity from alcohol withdrawal. She was admitted to the hospital for further evaluation and monitoring as well as a [facility] protocol for further intervention. The patient's labs did show a slight anemia of 11.8 and 34. She had follow up on that. The patient also was noted to have extremely low potassium of 2.5 and even with electrolyte replacement, came up to 3.3 range. Continue on potassium supplement as an outpatient. The patient's ethyl alcohol level was over 240, but no other drugs are noted. The patient has 5-10 white blood cells in her urine and pH was markedly alkaline, elevated liver enzymes, hepatitis screen was negative. The patient's magnesium levels were low. She was supplemented with that as well. As one can see, she also has low platelet count of 81,000. The patient needed to be followed up accordingly for multiple medical problems including that of alcohol intoxication, hyponatremia, hypokalemia, low magnesium level, anemia, thrombocytopenia, possible urinary tract infection, elevated liver enzymes, severe protein malnutrition, hypothyroidism, elevated bilirubin, pseudohypocalcemia and severe hypokalemia. The patient will be discharged home on a heart healthy diet, addition of potassium and magnesium supplementation as well as encouraged not to do any further drinking. She will be followed up as an outpatient and make further evaluation at that time with her primary care provider. CAMERON PENNY MD DR: YVETTE/chidi JOB#: [id number] / [id number]
== END 2019-02-02 18:41 | disposition home or self-care (01) | DRG 871 ==
LOC: ER 20:36 → 1 SOUTH 01-31 00:32
PROVIDERS: ADMIT Family Medicine; ATTEND Family Medicine
DX: A41.9 Sepsis, unspecified organism (principal); E43 Unspecified severe protein-calorie malnutrition; K85.90 Acute pancreatitis without necrosis or infection, unspecified; A04.72 Enterocolitis due to Clostridium difficile, not specified as recurrent; F10.239 Alcohol dependence with withdrawal, unspecified; F33.9 Major depressive disorder, recurrent, unspecified; D69.6 Thrombocytopenia, unspecified; E03.9 Hypothyroidism, unspecified; E83.42 Hypomagnesemia; E86.0 Dehydration; E87.6 Hypokalemia; F10.229 Alcohol dependence with intoxication, unspecified; F17.210 Nicotine dependence, cigarettes, uncomplicated; F41.9 Anxiety disorder, unspecified; G40.909 Epilepsy, unspecified, not intractable, without status epilepticus; Z82.49 Family history of ischemic heart disease and other diseases of the circulatory system; K21.9 Gastro-esophageal reflux disease without esophagitis
CPT/HCPCS: 36415; 71046; 74019; 74176; 76705; 80048; 80053; 80076; 80307; 81001; 82150; 82550; 83540; 83550; 83735; 83880; 84132; 84443; 84484; 85025; 85379; 85610; 85730; 86705; 86709; 86803; 87086; 87340; 90471; 90686; 93005; 93970; 94640; 96361; 96372; 96374; 96375; 96376; 99406; G0480; J0780; J1200; J1630; J1650; J2060; J2405; J3475; J3480; J3490; J7120; J7620; Q0162; 99285-25; J7030

== ENCOUNTER 2019-05-07 16:25 | Inpatient (IN) | payer SELFPAY ==
[~2019-05-07] VITALS: Ht 157.5 cm; Wt 50.0 kg
--- NOTE | 2019-05-07 17:01 | EKG ---
[address] [address] Test Date: 2019-05-07 Test Time: 17:01:22 Pat Name: ZAK MANZANARES Department: Room: Gender: F Juice Weigher: : 1975 Requested By: DENNIS CERVANTES Order Number: [id number] Reading MD: Measurements Intervals [place] Rate: 99 P: -102 SD: 108 QRS: 47 QRSD: 82 T: 62 QT: 370 QTc: 474 Interpretive Statements SUPRAVENTRICULAR RHYTHM INCOMPLETE RIGHT BUNDLE BRANCH BLOCK T ABNORMALITY IN HIGH LATERAL LEADS PROLONGED QT ABNORMAL ECG RI6.01 Compared to ECG 02/01/2019 16:16:50 Supraventricular rhythm now present Incomplete right bundle-branch block now present T-wave abnormality now present Prolonged QT interval now present Sinus tachycardia no longer present
[2019-05-07] MEDS ORDERED: MVI, ADULT NO.4 WITH VIT K 10 ML, FOLIC ACID INJ 1 MG, THIAMINE INJ 100 MG in IV RINGER... IV ONE ×4 (17:30)
[2019-05-07] MEDS ORDERED: FAMOTIDINE 20 MG/2 ML VIAL IVP ONE (17:30)
[2019-05-07] MEDS ORDERED: ONDANSETRON PF 4 MG/2 ML VIAL. IVP ONE (17:30)
[2019-05-07 17:39] LABS: BASO % 2 % (0-3); EOS % 0 % (0-3); HEMOGLOBIN 13.5 g/dL (12.0-15.5); LYMPH # 0.8 x10^3/uL (1.0-4.8); LYMPH % 29 % (24-48); MEAN CORPUSCULAR HEMOGLOBIN 34 pg (25-35); MEAN CORPUSCULAR HGB CONC 34 g/dL (31-37); MEAN CORPUSCULAR VOLUME 100 fL (79-100); MONO # 0.4 x10^3/uL (0.0-1.1); MONO % 13 % (0-9); NEUT # 1.6 x10^3uL (1.8-7.7); NEUT % 57 % (31-73); PLATELET COUNT 130 x10^3/uL (140-400); RED CELL DISTRIBUTION WIDTH 22.6 % (11.5-14.5); WHITE BLOOD COUNT 2.8 x10^3/uL (4.0-11.0)
[2019-05-07 17:49] LABS: CALCIUM 7.8 mg/dL (8.5-10.1); CREATININE 0.4 mg/dL (0.6-1.0); GFR 173.4
[2019-05-07 17:52] LABS: POTASSIUM 3.1 mmol/L (3.5-5.1)
[2019-05-07] MEDS ORDERED: ONDANSETRON PF 4 MG/2 ML VIAL. IV PRN (18:15)
[2019-05-07] MEDS ORDERED: IV NORMAL SALINE 1,000ML 1,000 ML IV ONE (18:15)
[2019-05-07 18:20] LABS: ALBUMIN/GLOBULIN RATIO 0.8 (1.0-1.7); MAGNESIUM 1.3 mg/dL (1.8-2.4); TOTAL BILIRUBIN 0.6 mg/dL (0.2-1.0); TOTAL PROTEIN 6.7 g/dL (6.4-8.2)
[2019-05-07] MEDS ORDERED: POTASSIUM CITRATE 10 MEQ TABLET.ER PO ONE (18:45)
--- NOTE | 2019-05-07 18:45 | PHYS DOC ---
Past History Past Medical History: Alcoholism, Anxiety, Depression, GERD, Hepatitis, Seizure, Other Additional Past Medical Histor: patient reports a history of ulcerative colitis; c diff Past Surgical History: Other Additional Past Surgical Histo: hernia-umbilical; debi ankle surgeries Smoking: Cigarettes, Less than 1pk/day Alcohol Use: Heavy Drug Use: None Adult General Chief Complaint Chief Complaint: NAUSEA/VOMITING/DIARRHEA HPI HPI 44 year old female with pmh of alcoholism presents with report of intractable nausea and vomiting x 1 week. Reports diffuse abdominal discomfort. Denies trauma. Denies fever/chills. Reports typically drinks at least a 6 pack daily. Patient reports she has been unable to keep anything down. Reports now with excessive shakiness and reports bilateral hands and arms have started to contract. Reports history of prior withdrawal seizures. Denies drug use. Den ies travel outside with [place]. Denies known sick contacts. Denies . Review of Systems Review of Systems Constitutional: Denies fever or chills Eyes: Denies change in visual acuity, redness, or eye pain HENT: Denies nasal congestion or sore throat Respiratory: Denies cough or shortness of breath Cardiovascular: Denies chest pain or palpitations GI: Reports abdominal pain with associated nausea and vomiting : Denies dysuria or hematuria Musculoskeletal: Denies back pain or joint pain; reports cramping in arms Integument: Denies rash or skin lesions Neurologic: Denies headache, focal weakness or sensory changes; reports shakiness Complete systems were reviewed and found to be within normal limits, except as documented in this note. Current Medications Current Medications Current Medications Medications (Trade) Dose Ordered Sig/Shelley Start Time Stop Time Status Last Admin Dose Admin Famotidine (Pepcid Vial) 20 mg 1X ONCE 05/07/19 17:30 05/07/19 17:31 DC 05/07/19 17:13 20 MG Lorazepam (Ativan Inj) 2 mg PRN Q1HR PRN 05/07/19 18:15 Multivitamins/ Minerals 10 ml/ Folic Acid 1 mg/ Thiamine HCl 100 mg/Lactated Ringer's 1,011.3 ml @ 1,011.3 mls/hr 1X ONCE 05/07/19 17:30 05/07/19 18:29 DC 05/07/19 17:13 1,011.3 MLS/HR Ondansetron HCl (Zofran) 4 mg PRN Q4HRS PRN 05/07/19 18:15 05/08/19 18:14 Potassium Citrate (Urocit-K) 40 meq 1X ONCE 05/07/19 18:45 05/07/19 18:46 Sodium Chloride 1,000 ml @ 125 mls/hr 1X ONCE 05/07/19 18:15 05/08/19 02:14 Allergies Allergies Allergies Coded Allergies Type Severity Reaction Last Updated Verified Penicillins Allergy Intermediate HIVES 01/30/19 Yes Physical Exam Physical Exam Constitutional: Well developed, ill but non-toxic appearance HENT: Normocephalic, atraumatic, oropharynx dry, nose normal Eyes: Conjunctiva injected bilaterally, no discharge Neck: Normal range of motion, no tenderness, supple, no meningeal signs Cardiovascular: Heart rate tachycardic and regular rhythm Lungs & Thorax: Bilateral breath sounds clear to auscultation, no respiratory distress Abdomen: Soft, no tenderness, no guarding/rebound tenderness/distention Skin: Warm, dry, no erythema, no rash Back: No tenderness, no CVA tenderness Extremities: No tenderness, ROM intact, no edema, tremulousness to bilaterally upper extremities Neurologic: Alert and oriented X 3, no focal deficits noted Psychologic: Affect anxious, judgement normal Current Patient Data Vital Signs Vital Signs Date Time Temp Pulse Resp B/P (MAP) Pulse Ox O2 Delivery O2 Flow Rate FiO2 05/07/19 18:27 97.9 104 18 159/102 (121) 99 Room Air Lab Results Laboratory Tests Test 05/07/19 17:17 05/07/19 17:50 White Blood Count 2.8 x10^3/uL (4.0-11.0) L Red Blood Count 4.00 x10^6/uL (3.50-5.40) Hemoglobin 13.5 g/dL (12.0-15.5) Hematocrit 40.0 % (36.0-47.0) Mean Corpuscular Volume 100 fL (79-100) Mean Corpuscular Hemoglobin 34 pg (25-35) Mean Corpuscular Hemoglobin Concent 34 g/dL (31-37) Red Cell Distribution Width 22.6 % (11.5-14.5) H Platelet Count 130 x10^3/uL (140-400) L Neutrophils (%) (Auto) 57 % (31-73) Lymphocytes (%) (Auto) 29 % (24-48) Monocytes (%) (Auto) 13 % (0-9) H Eosinophils (%) (Auto) 0 % (0-3) Basophils (%) (Auto) 2 % (0-3) Neutrophils # (Auto) 1.6 x10^3uL (1.8-7.7) L Lymphocytes # (Auto) 0.8 x10^3/uL (1.0-4.8) L Monocytes # (Auto) 0.4 x10^3/uL (0.0-1.1) Eosinophils # (Auto) 0.0 x10^3/uL (0.0-0.7) Basophils # (Auto) 0.0 x10^3/uL (0.0-0.2) Sodium Level 144 mmol/L (136-145) Potassium Level 3.1 mmol/L (3.5-5.1) L Chloride Level 101 mmol/L (98-107) Carbon Dioxide Level 25 mmol/L (21-32) Anion Gap 18 (6-14) H Blood Urea Nitrogen 5 mg/dL (7-20) L Creatinine 0.4 mg/dL (0.6-1.0) L Estimated GFR (Cockcroft-Gault) 173.4 BUN/Creatinine Ratio 13 (6-20) Glucose Level 89 mg/dL (70-99) Calcium Level 7.8 mg/dL (8.5-10.1) L Magnesium Level 1.3 mg/dL (1.8-2.4) L Total Bilirubin 0.6 mg/dL (0.2-1.0) Aspartate Amino Transferase (AST) 114 U/L (15-37) H Alanine Aminotransferase (ALT) 48 U/L (14-59) Alkaline Phosphatase 162 U/L (46-116) H Creatine Kinase 239 U/L (26-192) H Creatine Kinase MB (Mass) 14.0 ng/mL (0.0-3.6) H Creatine Kinase MB Relative Index 5.9 % (0-4) H Troponin I Quantitative < 0.017 ng/mL (0-0.055) Total Protein 6.7 g/dL (6.4-8.2) Albumin 3.0 g/dL (3.4-5.0) L Albumin/Globulin Ratio 0.8 (1.0-1.7) L Lipase 559 U/L (73-393) H Prothrombin Time 10.6 SEC (9.4-11.4) Prothrombin Time INR 1.0 (0.9-1.1) Activated Partial Thromboplast Time 25 SEC (23-33) EKG EKG @1701 NSR at 99bpm, NO ST elevation, QRS 82ms, QT/QTc 370/474ms Radiology/Procedures Radiology/Procedures [] Course & Med Decision Making Course & Med Decision Making Pertinent Lab studies reviewed. (See chart for details) Patient presents with 1 week history of intractable nausea and vomiting for 1 week. Reports unable to keep ETOH down. Hx of DTs. Patient with signs of withdrawal. Hx of DTs. Symptomatic treatment provided. Labs obtained and posted to chart. Hypokalemia and hypomagnesemia addressed. Banana bag given. Patient requiring admission for further evaluation and treatment. Discussed with Dr. Bustamante (PCP) who is in agreement with admit. Discussed findings and plan with patient, who acknowledges understanding and agreement. Dragon Disclaimer Dragon Disclaimer This electronic medical record was generated, in whole or in part, using a voice recognition dictation system. Departure Departure: Impression: Primary Impression: Nausea & vomiting Additional Impressions: Alcohol withdrawal syndrome Dehydration Impending delirium tremens Hypokalemia Hypomagnesemia Disposition: ADMITTED INPATIENT Admitting Physician: Cameron Bustamante Condition: GUARDED Referrals: CAMERON BUSTAMANTE MD (PCP) Critical Care Time Critical care time was 30 minutes which includes time at bedside, spent in discussion of patient's care with specialists and/or family members, with in terpretation of laboratory and/or radiological studies and is exclusive of procedures. Problem Qualifiers Primary Impression: Nausea & vomiting Vomiting type: unspecified Vomiting Intractability: intractable Qualified Codes: R11.2 - Nausea with vomiting, unspecified Additional Impressions: Alcohol withdrawal syndrome Complication of substance-induced condition: uncomplicated Qualified Codes: F10.230 - Alcohol dependence with withdrawal, uncomplicated DENNIS CERVANTES DO May 07, 2019 18:45
[2019-05-07 19:25] LABS: AMPHETAMINE/METHAMPHETAMINE NEG (NEG); BARBITURATES NEG (NEG); BENZODIAZEPINES NEG (NEG); CANNABINOIDS NEG (NEG); COCAINE NEG (NEG); METHADONE NEG (NEG); OPIATES NEG (NEG); PHENCYCLIDINE NEG (NEG)
[2019-05-07 19:30] LABS: BACTERIA,URINE FEW /HPF (0-FEW); BILIRUBIN,URINE NEG (NEG); CLARITY,URINE CLEAR; COLOR,URINE YELLOW; GLUCOSE,URINE NEG (NEG); NITRITE,URINE NEG (NEG); SQUAMOUS EPITHELIAL CELL,UR FEW /LPF; UROBILINOGEN,URINE 0.2 mg/dL (0.2 mg/dL)
[2019-05-07] MEDS ORDERED: MAGNESIUM SULFATE 2GM 50 ML IV ONE (19:30)
[2019-05-07 20:04] LABS: PLT ESTIMATE DECREASED (ADEQUATE)
[2019-05-07 20:05] LABS: ANISOCYTOSIS PRESENT; POLYCHROMASIA SLIGHT
[2019-05-07 20:30] VITALS: BP 126/87
[2019-05-07] MEDS: PROCHLORPERAZINE 10 MG/2 ML VIAL. IV PRN (20:45)
[2019-05-07] MEDS ORDERED: POTA20TA4 PO (21:05)
[2019-05-07] MEDS ORDERED: PROM25TA10 PO (21:06)
[2019-05-07 22:00] VITALS: BP 133/88
[2019-05-07 23:00] VITALS: BP 127/89
[2019-05-08] VITALS (23 sets, daily range): BP systolic 129–173; BP diastolic 90–119
[2019-05-08] MEDS ORDERED: chlordiazePOXIDE HCL 25 MG CAPSULE PO PRN ×2 (01:00→12:45)
[2019-05-08] MEDS: chlordiazePOXIDE HCL 25 MG CAPSULE PO PRN ×6 (01:05→16:20)
[2019-05-08 06:38] LABS: BASO % 1 % (0-3); EOS % 1 % (0-3); HEMATOCRIT 36.4 % (36.0-47.0); HEMOGLOBIN 12.2 g/dL (12.0-15.5); LYMPH # 0.5 x10^3/uL (1.0-4.8); LYMPH % 22 % (24-48); MEAN CORPUSCULAR HEMOGLOBIN 34 pg (25-35); MEAN CORPUSCULAR HGB CONC 33 g/dL (31-37); MEAN CORPUSCULAR VOLUME 101 fL (79-100); MONO # 0.3 x10^3/uL (0.0-1.1); MONO % 10 % (0-9); NEUT # 1.6 x10^3uL (1.8-7.7); NEUT % 66 % (31-73); PLATELET COUNT 93 x10^3/uL (140-400); RED BLOOD COUNT 3.62 x10^6/uL (3.50-5.40); WHITE BLOOD COUNT 2.4 x10^3/uL (4.0-11.0)
[2019-05-08 06:51] LABS: CALCIUM 6.6 mg/dL (8.5-10.1); CREATININE 0.5 mg/dL (0.6-1.0)
[2019-05-08 06:53] LABS: POTASSIUM 2.3 mmol/L (3.5-5.1)
[2019-05-08 06:54] LABS: ALBUMIN 2.5 g/dL (3.4-5.0); DIRECT BILIRUBIN 0.3 mg/dL (0.0-0.2); TOTAL BILIRUBIN 0.9 mg/dL (0.2-1.0); TOTAL PROTEIN 5.8 g/dL (6.4-8.2)
[2019-05-08] MEDS ORDERED: POTASSIUM CHLORIDE 20 MEQ TABLET.ER. PO ONE (07:45)
[2019-05-08] MEDS ORDERED: MAGNESIUM SULFATE 2GM 50 ML IV SCH (09:00)
[2019-05-08] MEDS: POTASSIUM CHLORIDE 20 MEQ TABLET.ER. PO SCH ×7 (09:45→21:30)
--- NOTE | 2019-05-08 11:30 | RAD ---
Examination: CT HEAD WO CONTRAST History: Neurological symptoms of new onset, dizziness Comparison/Correlation: None Findings: Axial images are obtained without contrast. Mild atrophy present. No intracranial hemorrhage, midline shift, or mass effect. Bony structures are intact. Impression: No acute process. PQRS Compliance Statement: One or more of the following individualized dose reduction techniques were utilized for this examination: 1. Automated exposure control 2. Adjustment of the mA and/or kV according to patient size 3. Use of iterative reconstruction technique Electronically signed by: Benjamín Lucas MD (05/08/2019 11:28 AM) [id number]
[2019-05-08] MEDS: MVI, ADULT NO.4 WITH VIT K 10 ML, THIAMINE INJ 100 MG, FOLIC ACID INJ 1 MG in IV NORMAL... IV SCH ×4 (12:00)
--- NOTE | 2019-05-08 13:44 | RAD ---
Study: CHEST AP ONLY Indication: Shortness of breath. Comparison: 01/30/2019 Findings: Similar configuration of the cardiomediastinal silhouette and joseph given lower lung volumes on this exam relative to the prior. Scattered granulomas. No lobar infiltrate, layering effusion or pneumothorax. Probable mild basilar volume loss. Impression: Taking into consideration poor inspiratory excursion, no acute radiographic abnormality of the chest. Probable mild basilar volume loss. Electronically signed by: GIL RAYGOZA MD (05/08/2019 1:41 PM) [id number]
--- NOTE | 2019-05-08 14:40 | HP ---
ADMIT DATE: 05/07/2019 HISTORY OF PRESENT ILLNESS: This is a 44-year-old female who has problems with alcohol abuse, came in through the Emergency Room, apparently liberated, intractable nausea, abdominal pain, some diarrhea occured. She has pancreatitis, alcohol level about 190. The patient was admitted for further evaluation and treatment and detox, prevention of DT. She did apparently have some shakiness to her as well. PAST MEDICAL HISTORY: Includes seizures, colitis, GERD, carpal tunnel syndrome, bilateral ankles with screws, psychiatric problems, panic disorders, depression, anxiety, substance abuse, history of alcohol and has gone through rehabilitation. She drinks a 6-pack of beer daily consumption, tobacco abuse, Lyme's disease, influenza vaccination, has had C. diff in the past. FAMILY HISTORY: Father with cerebrovascular disease. ALLERGIES: PENICILLIN. MEDICATIONS: The patient's medications were reconciled in the usual fashion. She takes promethazine, lorazepam, Zofran, and multivitamins. SOCIAL HISTORY: Noted 6 pack a day, full code and smokes about a pack of cigarettes as well. REVIEW OF SYSTEMS: Just general abdominal pain, nausea, vomiting, somewhat slight diarrhea. Denies chest pain, shortness of breath. PHYSICAL EXAMINATION: GENERAL: This is a pleasant white female looking very thin, frail, somewhat depressed. VITAL SIGNS: Blood pressure 152/103, respiratory rate 16, pulse 103, afebrile. HEENT: The patient's head was atraumatic, normocephalic. Eyes: PERRLA without jaundice. The mouth and throat were normal. NECK: Supple. LUNGS: Clear. ABDOMEN: Soft, diffuse tenderness in the epigastric area. EXTREMITIES: No clubbing, cyanosis, nor edema. NEUROLOGIC: The patient is alert and oriented x 3. Speech spontaneous, appropriate. Cranial nerves 2-12 are grossly intact. LABORATORY DATA: As indicated showing a white count depressed at 2.4, hemoglobin 12 and hematocrit 36. The patient otherwise potassium down to 2.3. The patient's albumin down to 2.5. Elevated liver enzymes, AST of 114, alkaline phosphatase 162. Creatine kinase 239. Troponins negative. Calcium low at 6.6. BUN and creatinine stable. We will continue to be monitored carefully for DTs. She is receiving the detox [facility] protocol, make further evaluation on her detox from alcoholism, elevated liver enzymes, acute pancreatitis. PLAN: As above. CAMERON PENNY MD DR: YVETTE/chidi JOB#: [id number] / [id number]
[2019-05-08 15:57] LABS: % BANDS 2 % (0-9); % BASOS 1 % (0-3); % LYMPHS 21 % (24-48); % MONOS 9 % (0-10); % SEGS 67 % (35-66); PLT ESTIMATE DECREASED (ADEQUATE)
[2019-05-08 15:58] LABS: ANISOCYTOSIS PRESENT; STOMATOCYTES PRESENT; TARGET CELLS PRESENT
[2019-05-08] MEDS: NICOTINE 14MG PATCH. TD SCH (16:20)
[2019-05-08] MEDS: PROCHLORPERAZINE 10 MG/2 ML VIAL. IV PRN (22:32)
[2019-05-09] VITALS (22 sets, daily range): BP systolic 115–153; BP diastolic 77–108
[2019-05-09] MEDS: chlordiazePOXIDE HCL 25 MG CAPSULE PO PRN ×4 (01:24→22:00)
[2019-05-09] MEDS: PANTOPRAZOLE IV 40 MG VIAL. IVP SCH (08:44)
[2019-05-09] MEDS: MVI, ADULT NO.4 WITH VIT K 10 ML, THIAMINE INJ 100 MG, FOLIC ACID INJ 1 MG in IV NORMAL... IV SCH ×4 (08:45)
[2019-05-09] MEDS: NICOTINE 14MG PATCH. TD SCH (08:45)
[2019-05-09] MEDS ORDERED: HALOPERIDOL LACT 5 MG/ML VIAL. IM PRN (09:45)
[2019-05-09] MEDS ORDERED: diphenhydrAMINE 50 MG/ML VIAL IVP PRN (09:45)
[2019-05-09] MEDS: HALOPERIDOL 2 MG TABLET PO PRN ×3 (10:18→19:33)
[2019-05-09 14:05] LABS: BASO % 1 % (0-3); EOS # 0.1 x10^3/uL (0.0-0.7); EOS % 1 % (0-3); HEMATOCRIT 41.6 % (36.0-47.0); HEMOGLOBIN 13.8 g/dL (12.0-15.5); LYMPH # 0.6 x10^3/uL (1.0-4.8); LYMPH % 17 % (24-48); MEAN CORPUSCULAR HEMOGLOBIN 34 pg (25-35); MEAN CORPUSCULAR HGB CONC 33 g/dL (31-37); MEAN CORPUSCULAR VOLUME 103 fL (79-100); MONO # 0.3 x10^3/uL (0.0-1.1); MONO % 8 % (0-9); NEUT # 2.5 x10^3uL (1.8-7.7); NEUT % 73 % (31-73); PLATELET COUNT 87 x10^3/uL (140-400); RED BLOOD COUNT 4.06 x10^6/uL (3.50-5.40); RED CELL DISTRIBUTION WIDTH 23.1 % (11.5-14.5); WHITE BLOOD COUNT 3.5 x10^3/uL (4.0-11.0)
[2019-05-09 14:13] LABS: CALCIUM 7.4 mg/dL (8.5-10.1); CREATININE 0.6 mg/dL (0.6-1.0); GFR 108.6; POTASSIUM 3.3 mmol/L (3.5-5.1)
[2019-05-09] MEDS ORDERED: POTASSIUM CHLORIDE 20 MEQ TABLET.ER. PO ONE (15:30)
[2019-05-09] MEDS: PROCHLORPERAZINE 10 MG/2 ML VIAL. IV PRN (18:14)
[2019-05-10] VITALS (7 sets, daily range): BP systolic 118–135; BP diastolic 79–106
[2019-05-10 06:38] LABS: CALCIUM 7.3 mg/dL (8.5-10.1); CREATININE 0.6 mg/dL (0.6-1.0); GFR 108.6; POTASSIUM 3.5 mmol/L (3.5-5.1)
[2019-05-10] MEDS ORDERED: THIAMINE 100 MG TABLET. PO SCH (09:00)
[2019-05-10] MEDS ORDERED: MULTIVITAMIN with MINERAL TABLET. PO SCH (09:00)
[2019-05-10] MEDS ORDERED: FOLIC ACID 1 MG TABLET PO SCH (09:00)
[2019-05-10] MEDS: PANTOPRAZOLE IV 40 MG VIAL. IVP SCH (09:16)
[2019-05-10] MEDS: NICOTINE 14MG PATCH. TD SCH (09:17)
[2019-05-10] MEDS: chlordiazePOXIDE HCL 25 MG CAPSULE PO PRN ×2 (09:18→14:28)
[2019-05-10] MEDS: HALOPERIDOL 2 MG TABLET PO PRN (10:48)
[2019-05-10] MEDS ORDERED: HALO2TAB PO (12:33)
[2019-05-10] MEDS ORDERED: CHLO25CA9 PO (12:33)
[2019-05-10] MEDS ORDERED: Folic Acid PO (12:33)
[2019-05-10] MEDS ORDERED: THIA100T22 PO (12:33)
--- NOTE | 2019-05-10 19:25 | PN ---
DATE: SUBJECTIVE: A 44-year-old female in with alcohol withdrawal, DTs, delirium. The patient was hallucinatory, has been extremely difficult to handle from the nursing staff. She has been on one on one, blood pressure has gone up 135/102, respiratory rate 18, pulse upwards of 110-120. The patient is afebrile. However, the patient has been given Haldol to help her with her mental situation where she is going through DTs, hallucinating and does show an extreme acute memory loss as well. I have consulted with Psychiatry to help the patient and may need to continue with the Haldol and further evaluation once psych unit has evaluated her otherwise. OBJECTIVE: VITAL SIGNS: Blood pressure 124/96, respiratory rate 16 as noted earlier. GENERAL: The patient otherwise alert, but confused, disoriented x 3. LUNGS: Diminished, but clear. CARDIOVASCULAR: Tachy. ABDOMEN: Soft. The patient hallucinatory as far as where she is or what is going on around her. Has no insight into the situation at hand. IMPRESSION: Alcohol withdrawal, delirium tremens, psychosis secondary to delirium tremens. PLAN: Continue to monitor the patient accordingly, make further evaluation on her as indicated. CAMERON PENNY MD DR: YVETTE/chidi JOB#: [id number] / [id number]
== END 2019-05-10 15:25 | disposition home or self-care (01) | DRG 439 ==
LOC: ER 16:25 → ICU 18:10 → ER 20:10
PROVIDERS: ADMIT Family Medicine; ATTEND Family Medicine
DX: K85.90 Acute pancreatitis without necrosis or infection, unspecified (principal); F10.231 Alcohol dependence with withdrawal delirium; A69.20 Lyme disease, unspecified; E86.0 Dehydration; E87.6 Hypokalemia; E83.42 Hypomagnesemia; F17.210 Nicotine dependence, cigarettes, uncomplicated; F29 Unspecified psychosis not due to a substance or known physiological condition; Z82.3 Family history of stroke; Y90.6 Blood alcohol level of 120-199 mg/100 ml; F32.9 Major depressive disorder, single episode, unspecified; F41.9 Anxiety disorder, unspecified; G56.00 Carpal tunnel syndrome, unspecified upper limb; K21.9 Gastro-esophageal reflux disease without esophagitis; R41.3 Other amnesia; Z79.899 Other long term (current) drug therapy; Z88.0 Allergy status to penicillin
CPT/HCPCS: 36415; 70450; 71045; 80048; 80053; 80076; 80307; 81001; 82553; 83690; 83735; 84132; 84484; 85007; 85025; 85610; 85730; 93005; 96365; 96366; 96375; 99406; C9113; G0480; J0780; J1200; J2060; J2405; J3475; J3490; J7120; 99285-25; 99291-25; J7030

== ENCOUNTER → 2019-05-21 | Outpatient (CLI) | payer SELFPAY ==
[2019-05-10 14:00] VITALS: BP 131/106
[~2019-05-21] MED LIST changes: +CHLO25CA9 PO; +Folic Acid PO; +HALO2TAB PO; +THIA100T22 PO
[2019-05-21 19:13] LABS: BASO # 0.1 x10^3/uL (0.0-0.2); BASO % 1 % (0-3); EOS # 0.1 x10^3/uL (0.0-0.7); EOS % 2 % (0-3); HEMATOCRIT 41.8 % (36.0-47.0); HEMOGLOBIN 13.7 g/dL (12.0-15.5); LYMPH # 0.8 x10^3/uL (1.0-4.8); LYMPH % 18 % (24-48); MEAN CORPUSCULAR HEMOGLOBIN 34 pg (25-35); MEAN CORPUSCULAR HGB CONC 33 g/dL (31-37); MEAN CORPUSCULAR VOLUME 105 fL (79-100); MONO # 0.4 x10^3/uL (0.0-1.1); MONO % 10 % (0-9); NEUT # 3.2 x10^3uL (1.8-7.7); NEUT % 70 % (31-73); PLATELET COUNT 335 x10^3/uL (140-400); RED CELL DISTRIBUTION WIDTH 21.1 % (11.5-14.5); WHITE BLOOD COUNT 4.6 x10^3/uL (4.0-11.0)
[2019-05-21 19:17] LABS: BACTERIA,URINE FEW /HPF (0-FEW); BILIRUBIN,URINE NEG (NEG); CLARITY,URINE HAZY; COLOR,URINE YELLOW; GLUCOSE,URINE NEG (NEG); NITRITE,URINE NEG (NEG); RBC,URINE OCC /HPF (0-2); SQUAMOUS EPITHELIAL CELL,UR FEW /LPF; UROBILINOGEN,URINE 0.2 mg/dL (0.2 mg/dL)
[2019-05-21 19:18] LABS: HYALINE CASTS, URINE OCC /HPF
[2019-05-21 19:30] LABS: ALBUMIN 2.9 g/dL (3.4-5.0); ALBUMIN/GLOBULIN RATIO 0.8 (1.0-1.7); CALCIUM 8.8 mg/dL (8.5-10.1); CREATININE 0.6 mg/dL (0.6-1.0); GFR 108.6; POTASSIUM 3.3 mmol/L (3.5-5.1); TOTAL BILIRUBIN 0.4 mg/dL (0.2-1.0); TOTAL PROTEIN 6.6 g/dL (6.4-8.2)
[2019-05-21 19:44] LABS: ANISOCYTOSIS MOD; PLT ESTIMATE ADEQUATE (ADEQUATE)
== END | disposition home or self-care (01) ==
LOC: LAB 18:18
PROVIDERS: ATTEND Family Medicine
DX: Z00.01 Encounter for general adult medical examination with abnormal findings (principal); N39.0 Urinary tract infection, site not specified; R11.0 Nausea; R19.7 Diarrhea, unspecified; R10.84 Generalized abdominal pain; F10.229 Alcohol dependence with intoxication, unspecified
CPT/HCPCS: 36415; 80053; 81001; 85025; 87086

== ENCOUNTER 2020-02-02 02:06 | Emergency (ER) | payer SELFPAY ==
[~2020-02-02] VITALS: Ht 157.5 cm; Wt 50.0 kg
--- NOTE | 2020-02-02 02:40 | PHYS DOC ---
Past History Past Medical History: Alcoholism, Anxiety, Depression, GERD, Hepatitis, Seizure, Other Additional Past Medical Histor: patient reports a history of ulcerative colitis; c diff Past Surgical History: Other Additional Past Surgical Histo: hernia-umbilical; debi ankle surgeries Smoking: Cigarettes, Less than 1pk/day Alcohol Use: Heavy Drug Use: None General Adult HPI: HPI: Patient is a 44-year-old female brought in by EMS for suicidal ideation, also admits to alcohol intoxication. States she drinks 2 tall boys tonight, states she also drinks daily but usually drinks a pint of whiskey. States she has suicidal ideations but has not attempted anything, has a plan to run out in traffic. Denies any prior suicide attempts but has had to stay inpatient in for depression. Denies she had any hallucinations she said that she sees her father and that he speaks to her. Denies any homicidal ideation. Says her trigger has been a disagreement with her who she is not sure where she is and has not seen her since yesterday. Patient denies any drug or tobacco use. States that she was taking BuSpar but has not had any for 1 to 2 weeks. Review of Systems: Review of Systems: Constitutional: Denies fever or chills Eyes: Denies change in visual acuity HENT: Denies nasal congestion or sore throat Respiratory: Denies cough or shortness of breath Cardiovascular: Denies chest pain or edema GI: Nausea and vomiting, denies any diarrhea or tarry stools : Denies dysuria Musculoskeletal: Denies back pain or joint pain Integument: Denies rash Neurologic: Denies headache, focal weakness or sensory changes Endocrine: Denies polyuria or polydipsia Lymphatic: Denies swollen glands Psychiatric: Depression suicidal ideation, hallucinations Current Medications: Current Meds: Current Medications Medications (Trade) Dose Ordered Sig/Shelley Start Time Stop Time Status Last Admin Dose Admin Ondansetron HCl (Zofran Odt) 4 mg 1X ONCE 02/02/20 02:45 02/02/20 02:46 UNV Allergies: Allergies: Allergies Coded Allergies Type Severity Reaction Last Updated Verified Penicillins Allergy Intermediate HIVES 01/30/19 Yes Physical Exam: PE: Constitutional: Well developed, well nourished, no acute distress, non-toxic appearance. [] HENT: Normocephalic, atraumatic, bilateral external ears normal, oropharynx moist, no oral exudates, nose normal. [] Eyes: PERRLA, EOMI, conjunctiva normal, no discharge. [] Neck: Normal range of motion, no tenderness, supple, no stridor. [] Cardiovascular:Heart rate regular rhythm, no murmur [] Lungs & Thorax: Bilateral breath sounds clear to auscultation [] Abdomen: Bowel sounds normal, soft, no tenderness, no masses, no pulsatile masses. [] Skin: Warm, dry, no erythema, no rash. [] Back: No tenderness, no CVA tenderness. [] Extremities: No tenderness, no cyanosis, no clubbing, ROM intact, no edema. [] Neurologic: Alert and oriented X 3, normal motor function, normal sensory function, no focal deficits noted. [] Psychologic: Tearful, voicing suicidal ideation and hallucinations EKG: EKG: Normal sinus rhythm, heart rate eighty-eight, normal axis, no ST elevation depression, normal intervals. [] Radiology/Procedures: Radiology/Procedures: [] Heart Score: Risk Factors: Risk Factors: DM, Current or recent (<one month) smoker, HTN, HLP, family history of CAD, obesity. Risk Scores: Score 0 - 3: 2.5% MACE over next 6 weeks - Discharge Home Score 4 - 6: 20.3% MACE over next 6 weeks - Admit for Clinical Observation Score 7 - 10: 72.7% MACE over next 6 weeks - Early Invasive Strategies Course & Med Decision Making: Course & Med Decision Making Pertinent Labs and Imaging studies reviewed. (See chart for details) Low potassium, given supplement p.o. Medically cleared for psychiatric evaluation. At shift change patient is pending recommendations of her psych screening was she will be sent home with a safety plan or place an inpatient. Prescription printed for potassium supplement. Patient's spouse states that she drinks "half a handle" of whiskey a day. Care transition at shift change, disposition pending. Patient came out of her room stating that she wants to go home and the screener says she agreed to go home. Screener called and confirmed that she can go home with a safety plan. [] Dragon Disclaimer: Dragon Disclaimer: This electronic medical record was generated, in whole or in part, using a voice recognition dictation system. Departure Departure: Impression: Primary Impression: Alcohol dependence Additional Impressions: Hypokalemia Depression with suicidal ideation Disposition: 01 DC HOME SELF CARE/HOMELESS Condition: STABLE Referrals: CAMERON PENNY MD (PCP) Patient Instructions: Suicidal Feelings, How to Help Yourself Additional Instructions: Take potassium supplements as prescribed and follow-up with your primary care provider to recheck potassium levels Scripts Potassium Chloride (POTASSIUM CHLORIDE ) 20 Meq Tablet.er 20 MEQ PO BID for SUPPLEMENT for 5 Days, #10 TAB Prov: JEVON ARENAS MD 02/02/20 JEVON ARENAS MD Feb 02, 2020 02:40
[2020-02-02] MEDS ORDERED: ONDANSETRON ODT 4 MG TAB.RAPDIS PO ONE ×2 (02:45→04:45)
[2020-02-02 03:24] LABS: BASO % 0 % (0-3); EOS % 0 % (0-3); HEMATOCRIT 41.6 % (36.0-47.0); LYMPH # 0.6 x10^3/uL (1.0-4.8); LYMPH % 15 % (24-48); MEAN CORPUSCULAR HEMOGLOBIN 33 pg (25-35); MEAN CORPUSCULAR HGB CONC 34 g/dL (31-37); MEAN CORPUSCULAR VOLUME 98 fL (79-100); MONO # 0.4 x10^3/uL (0.0-1.1); MONO % 9 % (0-9); NEUT # 3.2 x10^3uL (1.8-7.7); NEUT % 75 % (31-73); PLATELET COUNT 81 x10^3/uL (140-400); RED BLOOD COUNT 4.25 x10^6/uL (3.50-5.40); RED CELL DISTRIBUTION WIDTH 15.2 % (11.5-14.5); WHITE BLOOD COUNT 4.2 x10^3/uL (4.0-11.0)
[2020-02-02 03:33] LABS: BILIRUBIN,URINE NEG (NEG); CLARITY,URINE CLEAR; COLOR,URINE YELLOW; GLUCOSE,URINE NEG (NEG)
[2020-02-02 03:34] LABS: BACTERIA,URINE FEW /HPF (0-FEW); NITRITE,URINE NEG (NEG); RBC,URINE OCC /HPF (0-2); SQUAMOUS EPITHELIAL CELL,UR MOD /LPF
[2020-02-02 03:38] LABS: ACETAMIN < 2.0 mcg/mL (10-30); ETHANOL 151 mg/dL (0-10); SALIC < 2.8 mg/dL (2.8-20.0)
[2020-02-02 03:48] LABS: BARBITURATES NEG (NEG); BENZODIAZEPINES NEG (NEG); CANNABINOIDS NEG (NEG); COCAINE NEG (NEG); METHADONE NEG (NEG); OPIATES NEG (NEG); PHENCYCLIDINE NEG (NEG)
[2020-02-02 03:49] LABS: ALBUMIN 3.9 g/dL (3.4-5.0); ALBUMIN/GLOBULIN RATIO 1.1 (1.0-1.7); CALCIUM 8.6 mg/dL (8.5-10.1); CREATININE 0.7 mg/dL (0.6-1.0); GFR 90.9; MAGNESIUM 1.9 mg/dL (1.8-2.4); TOTAL BILIRUBIN 0.9 mg/dL (0.2-1.0); TOTAL PROTEIN 7.5 g/dL (6.4-8.2)
[2020-02-02 03:50] LABS: AMPHETAMINE/METHAMPHETAMINE NEG (NEG)
[2020-02-02 03:51] LABS: POTASSIUM 2.6 mmol/L (3.5-5.1)
[2020-02-02] MEDS ORDERED: POTASSIUM CHLORIDE 20 MEQ TABLET.ER. PO ONE (04:45)
[2020-02-02] MEDS ORDERED: LORazepam 1 MG TABLET PO ONE (04:45)
[2020-02-02] MEDS ORDERED: POTA20TA4 PO (05:41)
--- NOTE | 2020-02-02 05:48 | EKG ---
[address] [address] Test Date: 2020-02-02 Test Time: 03:13:53 Pat Name: ZAK MANZANARES Department: Room: Gender: F Cupola Patcher: : 1975 Requested By: JEVON ARENAS Order Number: [id number] Reading MD: Measurements Intervals [place] Rate: 88 P: 13 [place]: 174 QRS: 52 QRSD: 82 T: 59 QT: 380 QTc: 463 Interpretive Statements SINUS RHYTHM NORMAL ECG RI6.02 No previous ECG available for comparison
[2020-02-02 06:18] VITALS: BP 115/82
== END 2020-02-02 06:18 | disposition home or self-care (01) ==
LOC: ER 02:06
DX: F10.20 Alcohol dependence, uncomplicated (principal); E87.6 Hypokalemia; F32.9 Major depressive disorder, single episode, unspecified; R45.851 Suicidal ideations; R11.2 Nausea with vomiting, unspecified; F41.9 Anxiety disorder, unspecified; K21.9 Gastro-esophageal reflux disease without esophagitis; F17.210 Nicotine dependence, cigarettes, uncomplicated; Z88.0 Allergy status to penicillin; Y90.6 Blood alcohol level of 120-199 mg/100 ml
CPT/HCPCS: 36415; 80053; 80307; 80329; 81001; 83735; 85025; 87086; 93005; 99285; G0480; Q0162

== ENCOUNTER 2020-08-03 10:18 | Inpatient (IN) | payer SELFPAY ==
[~2020-08-03] VITALS: Ht 154.9 cm; Wt 61.9 kg
[~2020-08-03 10:18] MED LIST changes: +MIRT-7 PO; -MIRT15TA3 PO
[2020-08-03] MEDS ORDERED: THIAMINE INJ 100 MG in IV NORMAL SALINE 50ML 50 ML IV SCH (11:00)
[2020-08-03] MEDS ORDERED: FOLIC ACID 1 MG TABLET PO ONE (11:00)
[2020-08-03] MEDS ORDERED: IV NORMAL SALINE 1,000ML 1,000 ML IV ONE (11:00)
[2020-08-03] MEDS ORDERED: IOHEXOL 300 MG/ML 75 ML VIAL. IV ONE (11:00)
[2020-08-03 11:21] LABS: BASO # 0.1 x10^3/uL (0.0-0.2); BASO % 0 % (0-3); EOS % 0 % (0-3); HEMATOCRIT 45.1 % (36.0-47.0); HEMOGLOBIN 15.2 g/dL (12.0-15.5); LYMPH # 0.5 x10^3/uL (1.0-4.8); LYMPH % 3 % (24-48); MEAN CORPUSCULAR HEMOGLOBIN 33 pg (25-35); MEAN CORPUSCULAR HGB CONC 34 g/dL (31-37); MEAN CORPUSCULAR VOLUME 99 fL (79-100); MONO # 1.5 x10^3/uL (0.0-1.1); MONO % 8 % (0-9); NEUT % 89 % (31-73); PLATELET COUNT 369 x10^3/uL (140-400); RED BLOOD COUNT 4.55 x10^6/uL (3.50-5.40); WHITE BLOOD COUNT 19.2 x10^3/uL (4.0-11.0)
--- NOTE | 2020-08-03 11:26 | PHYS DOC ---
Past History Past Medical History: Alcoholism, Anxiety, Depression, GERD, Hepatitis, Pancreatitis, Seizure, Other Additional Past Medical Histor: patient reports a history of ulcerative colitis; c diff Past Surgical History: Other Additional Past Surgical Histo: hernia-umbilical; debi ankle surgeries Smoking: Cigarettes, Less than 1pk/day Alcohol Use: Heavy Additional Alcohol Information: last ETOH 2 weeks ago Drug Use: None Adult General Chief Complaint Chief Complaint: NAUSEA/VOMITING/DIARRHEA HPI HPI Patient is a 45-year-old female presenting for nausea and vomit. Has history of alcohol dependence, has been drinking a tall boy and liquor daily for "a while". She has wanted to stop, states she recently attended an inpatient rehabilitation facility and got released yesterday. States she was sober the entire time but reports "blowing high yesterday and I am not sure why". No fever, URI-like symptoms, chest pain, abdominal pain, ripping or tearing sensation in abdomen, dysuria. Admits to nausea and nonbilious nonbloody emesis Review of Systems Review of Systems Fourteen body systems of review of systems have been reviewed. See HPI for pertinent positives and negative responses, other andrew all other systems are n egative, non-pertinent or non-contributory Current Medications Current Medications Current Medications Medications (Trade) Dose Ordered Sig/Shelley Start Time Stop Time Status Last Admin Dose Admin Folic Acid (Folic Acid) 1 mg 1X ONCE 08/03/20 11:00 08/03/20 11:04 DC Iohexol (Omnipaque 300 Mg/ml) 75 ml 1X ONCE 08/03/20 11:00 08/03/20 11:01 DC Sodium Chloride 1,000 ml @ 1,000 mls/hr 1X ONCE 08/03/20 11:00 08/03/20 11:59 Thiamine HCl 100 mg/Sodium Chloride 51 ml @ 102 mls/hr DAILY 08/03/20 11:00 Allergies Allergies Allergies Coded Allergies Type Severity Reaction Last Updated Verified Penicillins Allergy Intermediate HIVES 08/03/20 Yes Physical Exam Physical Exam Constitutional: Well developed, well nourished, no acute distress, non-toxic appearance. HENT: Normocephalic, atraumatic, bilateral external ears normal, oropharynx moist, no oral exudates, nose normal. Eyes: PERRLA, EOMI, conjunctiva normal, no discharge. Neck: Normal range of motion, no tenderness, supple, no stridor. Cardiovascular: Heart rate regular, sinus rhythm, no murmurs rubs or gallops Lungs & Thorax: Bilateral breath sounds clear to auscultation Abdomen: Bowel sounds normal, soft, no tenderness, no masses, no pulsatile masses. Nonsurgical abdomen, no peritoneal signs Skin: Warm, dry, no erythema, no rash. Back: No tenderness, no CVA tenderness. Extremities: No tenderness, no cyanosis, no clubbing, ROM intact, no edema. Neurologic: Alert and oriented X 3, grossly normal motor & sensory function, no focal deficits noted. Psychologic: Affect normal, judgement normal, mood normal. Current Patient Data Vital Signs Vital Signs Date Time Temp Pulse Resp B/P (MAP) Pulse Ox O2 Delivery O2 Flow Rate FiO2 08/03/20 10:30 97.4 120 22 131/91 (104) 100 Lab Results Laboratory Tests Test 08/03/20 10:53 08/03/20 12:19 White Blood Count 19.2 x10^3/uL Red Blood Count 4.55 x10^6/uL Hemoglobin 15.2 g/dL Bedside Hemoglobin 15.3 gm/dL Hematocrit 45.1 % Bedside Hematocrit 45 % Mean Corpuscular Volume 99 fL Mean Corpuscular Hemoglobin 33 pg Mean Corpuscular Hemoglobin Concent 34 g/dL Red Cell Distribution Width 15.0 % Platelet Count 369 x10^3/uL Neutrophils (%) (Auto) 89 % Lymphocytes (%) (Auto) 3 % Monocytes (%) (Auto) 8 % Eosinophils (%) (Auto) 0 % Basophils (%) (Auto) 0 % Neutrophils # (Auto) 17.0 x10^3uL Lymphocytes # (Auto) 0.5 x10^3/uL Monocytes # (Auto) 1.5 x10^3/uL Eosinophils # (Auto) 0.0 x10^3/uL Basophils # (Auto) 0.1 x10^3/uL Platelet Estimate Pending Bedside Sodium 142 mmol/L Sodium Level 145 mmol/L Bedside Potassium 2.7 mmol/L Potassium Level 2.9 mmol/L Bedside Chloride 103 mmol/L Chloride Level 101 mmol/L Carbon Dioxide Level 20 mmol/L Bedside Total CO2 25 mmol/L Anion Gap 17 mmol/L Bedside Blood Urea Nitrogen 13 mg/dL Blood Urea Nitrogen 14 mg/dL Creatinine 1.0 mg/dL Bedside Creatinine 0.8 mg/dL Estimated GFR (Cockcroft-Gault) 60.0 BUN/Creatinine Ratio 14 Glucose Level 150 mg/dL Calcium Level 9.6 mg/dL Bedside Ionized Calcium (Charity) 103 mmol/L Magnesium Level 1.8 mg/dL Total Bilirubin 0.5 mg/dL Aspartate Amino Transf (AST/SGOT) 17 U/L Alanine Aminotransferase (ALT/SGPT) 21 U/L Alkaline Phosphatase 79 U/L Bedside Troponin I < 0.02 ng/ml Total Protein 8.0 g/dL Albumin 4.4 g/dL Albumin/Globulin Ratio 1.2 Lipase 72 U/L Ethyl Alcohol Level < 10 mg/dL Urine Collection Type Unknown Urine Color Yellow Urine Clarity Cloudy Urine pH >8.5 Urine Specific Dix 1.010 Urine Protein 30 mg/dl Urine Glucose (UA) Neg mg/dL Urine Ketones (Stick) >=160 mg/dL Urine Blood Neg Urine Nitrite Neg Urine Bilirubin Neg Urine Urobilinogen Dipstick 0.2 mg/dL Urine Leukocyte Esterase Neg Urine RBC 3-5 /HPF Urine WBC Occ /HPF Urine Squamous Epithelial Cells Many /LPF Urine Bacteria Mod /HPF Urine Opiates Screen Neg Urine Methadone Screen Neg Urine Barbiturates Neg Urine Phencyclidine Screen Neg Urine Amphetamine/Methamphetamine Neg Urine Benzodiazepines Screen Neg Urine Cocaine Screen Neg Urine Cannabinoids Screen Neg Urine Ethyl Alcohol Neg Current Medications Medications (Trade) Dose Ordered Sig/Shelley Route PRN Reason Start Time Stop Time Status Last Admin Dose Admin Iohexol (Omnipaque 300 Mg/ml) 75 ml 1X ONCE IV 08/03/20 11:00 08/03/20 11:01 DC 08/03/20 11:53 Thiamine HCl 100 mg/Sodium Chloride 51 ml @ 102 mls/hr DAILY IV 08/03/20 11:00 08/03/20 11:38 Sodium Chloride 1,000 ml @ 1,000 mls/hr 1X ONCE IV 08/03/20 11:00 08/03/20 11:59 DC 08/03/20 11:31 Folic Acid (Folic Acid) 1 mg 1X ONCE PO 08/03/20 11:00 08/03/20 11:04 DC 08/03/20 12:23 Metoclopramide HCl (Reglan Vial) 10 mg 1X ONCE IVP 08/03/20 11:30 08/03/20 11:31 DC 08/03/20 11:33 Fentanyl Citrate (Fentanyl 2ml Vial) 50 mcg 1X ONCE IVP 08/03/20 11:30 08/03/20 11:31 DC 08/03/20 11:36 Sodium Chloride 50 ml @ As Directed STK-MED ONCE .ROUTE 08/03/20 11:27 08/03/20 11:28 DC Thiamine HCl (Thiamine Vial) 200 mg STK-MED ONCE IV 08/03/20 11:28 08/03/20 11:28 DC Magnesium Sulfate 100 ml @ 100 mls/hr 1X ONCE IV 08/03/20 12:00 08/03/20 11:58 DC Magnesium Sulfate 1 gm/Potassium Chloride/Dextrose/ Sod Cl 1,002 ml @ 100.2 mls/ hr 1X ONCE IV 08/03/20 12:00 08/03/20 21:59 08/03/20 12:18 Potassium Chloride (Klor-Con) 40 meq 1X ONCE PO 08/03/20 12:00 08/03/20 12:01 DC Fentanyl Citrate (Fentanyl 2ml Vial) 50 mcg PRN Q2HR PRN IVP PAIN 08/03/20 13:00 08/04/20 12:59 Potassium Bicarbonate (Potassium Effervescent Tablet) 40 meq 1X ONCE PO 08/03/20 14:00 08/03/20 14:01 EKG EKG EKG ordered and interpreted by myself at 1107 hrs. as sinus tachycardia at 103 bpm, prolonged QTC at 503 otherwise unremarkable intervals, no axis deviation, no acute ischemic findings, no STEMI Radiology/Procedures Radiology/Procedures Exam: CT abdomen/pelvis with intravenous contrast Indication: Epigastric pain, history of pancreatitis Comparison: CT abdomen pelvis 02/01/2019 and 05/07/2013 Technique: Helical CT imaging performed of the abdomen and pelvis after the intravenous administration of contrast. Sagittal and coronal reformats were obtained. One or more of the following individualized dose reduction techniques were utilized for this examination: 1. Automated exposure control 2. Adjustment of the mA and/or kV according to patient size 3. Use of iterative reconstruction technique. Findings: Lower chest: There is a calcified granuloma in the left lower lobe. The heart is normal in size Liver: The liver is normal in size. Hepatic steatosis has decreased. A 1.2 cm hyperdense nodule adjacent to the intrahepatic inferior vena cava is unchanged and correlates with a hemangioma on CT abdomen and pelvis 05/07/2013 Gallbladder/Biliary Tree: Normal. Pancreas: Normal. Spleen: There are calcified splenic granulomas. No splenomegaly. Adrenal Glands: Normal. Kidneys/Ureters/Bladder: The kidneys are normal in size and enhance symmetrically. No hydronephrosis. Ureters and bladder are normal. Reproductive Organs: Uterus and ovaries are unremarkable. Stomach, small bowel, and colon: Stomach is normal. No small bowel obstruction. The appendix is normal. There is new mild diffuse colonic wall thickening. Few colonic diverticula. Vasculature: Aorta is normal in caliber. Lymph Nodes: No lymphadenopathy. Peritoneum and retroperitoneum: No free fluid or free air. Bones: No acute osseous abnormality. There is transitional anatomy at the lumbosacral junction. Impression: 1. Mild diffuse colonic wall thickening suspicious for colitis. 2. Normal pancreas. 3. Decreased hepatic steatosis. Unchanged small hepatic hemangioma. Electronically signed by: Jessica Welch MD (08/03/2020 12:17 PM) [id number] Heart Score C/O Chest Pain: No HEART Score for Chest Pain: HEART Score for Chest Pain Response (Comments) Value History Slighlty/Non-Suspicious 0 ECG Normal 0 Age >45 - < 65 1 Risk Factors 1 or 2 Risk Factors 1 Troponin < Normal Limit 0 Total 2 Risk Factors: Risk Factors: DM, Current or recent (<one month) smoker, HTN, HLP, family history of CAD, obesity. Risk Scores: Risk Factors: DM, Current or recent (<one month) smoker, HTN, HLP, family history of CAD, obesity. Course & Med Decision Making Course & Med Decision Making Hemodynamically stable patient with HPI and physical exam nonconcerning for emergent or surgical findings IV access obtained. IV fluid rehydration, thiamine replenishment started. ER work-up ensued and concerning for gross electrolyte abnormalities. Difficulties obtaining certain labs due to lab malfunction prompted initial treatment of magnesium in addition to potassium levels Patient symptoms improved with provided ER intervention. Nonetheless, given patient's high risk status and need for ongoing observation given low potassium, it was recommended that patient be admitted to the hospital I contacted patient's primary care physician who will also serve as hospitalist and discussed need for hospital admission, he was acceptable. I discussed ER admission with patient and spouse at bedside and both were agreeable to plan as stated. All questions and concerns addressed Critical Care Time This patient required critical care. Due to the fact that the patient required a significant amount of one on one physician - patient contact time, ordering and review of studies, arranging urgent treatment with development of a management plan, evaluation of patients response to treatment with frequent reassessments, and discussions with other providers this patient required 40 minutes of critical care time. Critical care time was indicated due to the inherent instability and/or potential for instability in this patient. The critical care time that is allocated to this patient is above and beyond any time spent on any other billable procedures performed on this patient. Dragon Disclaimer Dragon Disclaimer This electronic medical record was generated, in whole or in part, using a voice recognition dictation system. Departure Departure: Impression: Primary Impression: Nausea & vomiting Additional Impressions: Electrolyte disorder History of alcohol dependence Disposition: ADMITTED INPATIENT Admitting Physician: Cameron Penny Condition: STABLE Referrals: CAMERON PENNY MD (PCP) Problem Qualifiers NADEGETIM DO Aug 03, 2020 11:26
[2020-08-03] MEDS ORDERED: IV NORMAL SALINE 50ML 50 ML ONE (11:27)
[2020-08-03] MEDS ORDERED: THIAMINE 200 MG/2 ML VIAL. IV ONE (11:28)
[2020-08-03 11:29] LABS: HEMOGLOBIN ISTAT 15.3 gm/dL
[2020-08-03] MEDS ORDERED: METOCLOPRAMIDE HCL 10 MG/2 ML VIAL. IVP ONE (11:30)
[2020-08-03 11:32] LABS: POTASSIUM ISTAT 2.7 mmol/L (3.5-5.0)
[2020-08-03] MEDS ORDERED: D5 IV ONE (12:00)
[2020-08-03] MEDS ORDERED: MAGNESIUM SULFATE 1GM 100 ML IV ONE (12:00)
[2020-08-03] MEDS ORDERED: [UNRECOGNIZED DRUG - OTHER] IV ONE (12:00)
[2020-08-03] MEDS ORDERED: POTASSIUM CHLORIDE 20 MEQ TABLET.ER. PO ONE (12:00)
[2020-08-03] MEDS ORDERED: POTASSIUM CL IV ONE (12:00)
[2020-08-03] MEDS ORDERED: MAGNESIUM SULFATE IV ONE (12:00)
--- NOTE | 2020-08-03 12:19 | RAD ---
Exam: CT abdomen/pelvis with intravenous contrast Indication: Epigastric pain, history of pancreatitis Comparison: CT abdomen pelvis 02/01/2019 and 05/07/2013 Technique: Helical CT imaging performed of the abdomen and pelvis after the intravenous administratio n of contrast. Sagittal and coronal reformats were obtained. One or more of the following individualized dose reduction techniques were utilized for this examinat ion: 1. Automated exposure control 2. Adjustment of the mA and/or kV according to patient size 3. Use of iterative reconstruction technique. Findings: Lower chest: There is a calcified granuloma in the left lower lobe. The heart is normal in size Liver: The liver is normal in size. Hepatic steatosis has decreased. A 1.2 cm hyperdense nodule adjac ent to the intrahepatic inferior vena cava is unchanged and correlates with a hemangioma on CT abdome n and pelvis 05/07/2013 Gallbladder/Biliary Tree: Normal. Pancreas: Normal. Spleen: There are calcified splenic granulomas. No splenomegaly. Adrenal Glands: Normal. Kidneys/Ureters/Bladder: The kidneys are normal in size and enhance symmetrically. No hydronephrosis. Ureters and bladder are normal. Reproductive Organs: Uterus and ovaries are unremarkable. Stomach, small bowel, and colon: Stomach is normal. No small bowel obstruction. The appendix is alex l. There is new mild diffuse colonic wall thickening. Few colonic diverticula. Vasculature: Aorta is normal in caliber. Lymph Nodes: No lymphadenopathy. Peritoneum and retroperitoneum: No free fluid or free air. Bones: No acute osseous abnormality. There is transitional anatomy at the lumbosacral junction. Impression: 1. Mild diffuse colonic wall thickening suspicious for colitis. 2. Normal pancreas. 3. Decreased hepatic steatosis. Unchanged small hepatic hemangioma. Electronically signed by: Jessica Welch MD (08/03/2020 12:17 PM) [id number]
[2020-08-03 13:11] LABS: BACTERIA,URINE MOD /HPF (0-FEW); BILIRUBIN,URINE NEG (NEG); CLARITY,URINE CLOUDY; COLOR,URINE YELLOW; GLUCOSE,URINE NEG (NEG); NITRITE,URINE NEG (NEG); SQUAMOUS EPITHELIAL CELL,UR MANY /LPF; UROBILINOGEN,URINE 0.2 mg/dL (0.2 mg/dL); WBC,URINE OCC /HPF (0-4)
[2020-08-03 13:26] LABS: AMPHETAMINE/METHAMPHETAMINE NEG (NEG); BARBITURATES NEG (NEG); BENZODIAZEPINES NEG (NEG); CANNABINOIDS NEG (NEG); COCAINE NEG (NEG); METHADONE NEG (NEG); OPIATES NEG (NEG); PHENCYCLIDINE NEG (NEG)
[2020-08-03 13:31] LABS: ALBUMIN 4.4 g/dL (3.4-5.0); ALBUMIN/GLOBULIN RATIO 1.2 (1.0-1.7); CALCIUM 9.6 mg/dL (8.5-10.1); TOTAL BILIRUBIN 0.5 mg/dL (0.2-1.0)
[2020-08-03 13:32] LABS: POTASSIUM 2.9 mmol/L (3.5-5.1)
[2020-08-03] MEDS ORDERED: POTASSIUM BICARB 20 MEQ EFFERVESCENT TABLET. PO ONE (14:00)
[2020-08-03 14:25] LABS: % BANDS 6 % (0-9); % LYMPHS 6 % (24-48); % MONOS 4 % (0-10); % SEGS 84 % (35-66)
[2020-08-03 14:27] LABS: PLT ESTIMATE ADEQUATE (ADEQUATE)
[2020-08-03] MEDS ORDERED: DIVA-53 PO (15:29)
[2020-08-03] MEDS ORDERED: GABA-586 PO (15:29)
[2020-08-03] MEDS ORDERED: BUSP10TA PO (15:29)
[2020-08-03] MEDS ORDERED: QUET300T PO (15:29)
[2020-08-03] MEDS ORDERED: TRAZ150T49 PO (15:29)
[2020-08-03] MEDS ORDERED: QUET200T PO (15:29)
[2020-08-03 15:37] VITALS: BP 153/92
[2020-08-03] MEDS ORDERED: HALOPERIDOL 2 MG TABLET PO PRN (15:45)
[2020-08-03] MEDS: LORazepam 0.5 MG TABLET PO PRN (16:19)
[2020-08-03] MEDS ORDERED: ONDANSETRON ODT 4 MG TAB.RAPDIS PO PRN (16:45)
[2020-08-03] MEDS ORDERED: ELECTROLYTE (NON-ICU) PROTOCOL. MC PRN (18:45)
--- NOTE | 2020-08-03 19:12 | NUR ---
ADMISSION NOTE Pt admitted to room 117 for further evaluation. Admission completed and medications restarted. Pt states she was discharged from a sober living facility yesterday and is 2 weeks sober. Pt given PRN medications for anxiety and night meds to be given. KONG, RN
[2020-08-03] MEDS: PROMETHAZINE 25 MG TABLET. PO PRN (19:33)
[2020-08-03 19:40] VITALS: BP 158/103
[2020-08-03] MEDS: POTASSIUM CHLORIDE 20 MEQ TABLET.ER. PO SCH (20:20)
[2020-08-03] MEDS: busPIRone 10 MG TABLET. PO SCH (20:20)
[2020-08-03] MEDS: DIVALPROEX SODIUM 250 MG TABLET.DR. PO SCH (20:20)
[2020-08-03] MEDS: GABAPENTIN 300 MG CAPSULE. PO SCH (20:20)
[2020-08-03] MEDS: QUEtiapine 100 MG TABLET. PO SCH ×2 (20:21)
[2020-08-03] MEDS: traZODone 150 MG TABLET. PO PRN (20:21)
[2020-08-03] MEDS ORDERED: POTASSIUM CHLORIDE 20 MEQ TABLET.ER. PO SCH (21:00)
[2020-08-03] MEDS ORDERED: CIPROFLOXACIN 400MG PREMIX 200 ML IV SCH (21:00)
[2020-08-03 23:16] VITALS: BP 103/67
[2020-08-04] MEDS: PROMETHAZINE 25 MG TABLET. PO PRN ×2 (05:34→14:31)
[2020-08-04] MEDS: LORazepam 0.5 MG TABLET PO PRN ×2 (05:34→23:27)
--- NOTE | 2020-08-04 06:20 | NUR ---
Pt awake in bed at change of shift watching TV. Pt A&Ox4, anxious about remaining sober but hopeful that "I will do it this time!" Pt given PRN nausea and anxiety medications when available during shift. Pt was able to eat a few bites of applesauce and chicken broth before bed and was able to keep HS medications down. Pt slept great during night, stating "I haven't slept that great in a long time."
--- NOTE | 2020-08-04 06:21 | EKG ---
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
[2020-08-04 07:17] LABS: BASO % 0 % (0-3); EOS % 0 % (0-3); HEMATOCRIT 39.4 % (36.0-47.0); HEMOGLOBIN 13.4 g/dL (12.0-15.5); LYMPH # 1.5 x10^3/uL (1.0-4.8); LYMPH % 17 % (24-48); MEAN CORPUSCULAR HEMOGLOBIN 34 pg (25-35); MEAN CORPUSCULAR HGB CONC 34 g/dL (31-37); MEAN CORPUSCULAR VOLUME 99 fL (79-100); MONO # 1.1 x10^3/uL (0.0-1.1); MONO % 12 % (0-9); NEUT # 6.5 x10^3uL (1.8-7.7); NEUT % 72 % (31-73); PLATELET COUNT 241 x10^3/uL (140-400); RED BLOOD COUNT 3.98 x10^6/uL (3.50-5.40); RED CELL DISTRIBUTION WIDTH 15.2 % (11.5-14.5); WHITE BLOOD COUNT 9.1 x10^3/uL (4.0-11.0)
[2020-08-04 08:08] LABS: CREATININE 0.8 mg/dL (0.6-1.0); GFR 77.6; POTASSIUM 3.7 mmol/L (3.5-5.1)
[2020-08-04] MEDS: THIAMINE 100 MG TABLET. PO SCH (09:40)
[2020-08-04] MEDS: busPIRone 10 MG TABLET. PO SCH ×3 (09:40→20:06)
[2020-08-04] MEDS: MULTIVITAMIN with MINERAL TABLET. PO SCH (09:41)
[2020-08-04] MEDS: FOLIC ACID 1 MG TABLET PO SCH (09:41)
[2020-08-04] MEDS: GABAPENTIN 300 MG CAPSULE. PO SCH ×3 (09:41→20:06)
[2020-08-04] MEDS: DIVALPROEX SODIUM 250 MG TABLET.DR. PO SCH ×2 (09:41→20:07)
[2020-08-04] MEDS: QUEtiapine 100 MG TABLET. PO SCH ×3 (09:41→20:06)
[2020-08-04] MEDS: POTASSIUM CHLORIDE 20 MEQ TABLET.ER. PO SCH ×2 (09:41→20:06)
--- NOTE | 2020-08-04 09:54 | HP ---
HISTORY OF PRESENT ILLNESS: A 45-year-old female who came in through the emergency room with severe nausea, vomiting, and abdominal pain. The patient had been in a drug rehab for alcohol abuse and was making good progress. She has not had anything to drink for at least 2 weeks. However, all of a sudden she started to have severe abdominal discomfort, ripping and tearing sensation in her abdomen and painful urination. She also had some nausea with nonbilious, nonbloody emesis. As a result of this, the patient had a CAT scan and that demonstrated a severe problem with colonic wall thickening, suspicious for colitis and some steatosis. As a result of this, the patient was admitted to the hospital for further evaluation, IV fluids, antibiotic therapy for her colitis as her white count was close to 20,000. PAST MEDICAL HISTORY: As noted, is alcoholism. She has had a history of colitis, carpal tunnel syndrome, GERD, panic disorder, depression, anxiety, substance abuse, Lyme's disease, influenza up to date; C. difficile, yes; sleep difficulties, trazodone for sleep aid. FAMILY HISTORY: Heart disease. ALLERGIES: PENICILLINS. HOME MEDICATIONS: Her reconciled home medications include: Promethazine 25 mg, gabapentin 300 mg 1 t.i.d., trazodone 150 mg at bedtime p.r.n., Haldol 2 mg q. 12 hours p.r.n., Seroquel 300 mg 1 b.i.d., Seroquel 300 mg at bedtime, Librium 50 mg q. 12 hours, buspirone 10 mg t.i.d., potassium chloride 20 mEq p.o. t.i.d., Zofran, thiamine, B1, multivitamins and folic acid. She also takes a bipolar medication Depakote, she takes 500 mg b.i.d. SOCIAL HISTORY: The patient has a 65-gynt-xelt history of smoking, heavy abuse of alcohol binge drinking, but has been clear her for the last 2 weeks off that. The patient is a full code. REVIEW OF SYSTEMS: The patient denies any headaches, visual changes. Denies shortness of breath or chest pain. Does have the abdominal pain with nausea and vomiting, has some diarrhea. Denies any melena, hematochezia, or hematemesis. Does have a tearing sensation in her abdomen. Neurologically, alert and oriented. Baseline, no signs of delirium tremens, although she apparently had them in the past. PHYSICAL EXAMINATION: GENERAL: This is a white female, frail appearing, somewhat older appearing than stated age. VITAL SIGNS: Blood pressure 153/92, respiratory rate 22, pulse 120, temperature 97.4. HEENT: The patient's head was atraumatic, normocephalic. Eyes: PERRLA without jaundice. The mouth and throat were normal. NECK: Supple. No JVD or thyromegaly. LUNGS: Diminished throughout, but basically clear. CARDIOVASCULAR: Regular sinus rhythm. ABDOMEN: Soft. Definite tenderness, some guarding, but no rebounding. Positive bowel sounds. No hepatosplenomegaly. No masses noted. EXTREMITIES: No clubbing, cyanosis, nor edema. Some muscle atrophy noted, muscle wasting. NEUROLOGIC: Alert and oriented and responsive, in good mentation and speech appropriate. IMAGING DATA: CT scan showed the images of colitis in the colonic wall thickening consistent with such as noted above. Other organ systems within the abdomen were basically normal. IMPRESSION AND PLAN: Therefore, sepsis, colitis, post-alcohol withdrawal and doing well with that __. Hypokalemia, potassium was 2.7 and placed on an electrolyte protocol. Lipase was normal. Liver enzymes are normal. BUN and creatinine normal. So, we will continue with IV Flagyl. Make further evaluation on her as indicated and we will adjust her medications accordingly, but her white count has been coming down from 19,000 down to 9000 with the IV antibiotic therapy. She is still weak. She is still not able to eat. We are trying to give her some nutritional supplements as well as some clear liquids to see if she can tolerate those. NATHALY LAYNE: Travon TID: [id number]
[2020-08-04 11:23] VITALS: BP 101/68
[2020-08-04 15:00] VITALS: BP 130/89
[2020-08-04 19:21] VITALS: BP 130/90
[2020-08-04] MEDS: LACTOBACILLUS RHAMNOSUS GG 1 CAPSULE. PO SCH (20:06)
[2020-08-04 22:55] VITALS: BP 129/91
[2020-08-05 06:04] VITALS: BP 134/94
[2020-08-05 07:21] LABS: CALCIUM 8.1 mg/dL (8.5-10.1); CREATININE 0.7 mg/dL (0.6-1.0); GFR 90.5; POTASSIUM 3.9 mmol/L (3.5-5.1)
[2020-08-05] MEDS: busPIRone 10 MG TABLET. PO SCH ×3 (08:07→20:30)
[2020-08-05] MEDS: QUEtiapine 100 MG TABLET. PO SCH ×3 (08:07→20:29)
[2020-08-05] MEDS: THIAMINE 100 MG TABLET. PO SCH (08:07)
[2020-08-05] MEDS: POTASSIUM CHLORIDE 20 MEQ TABLET.ER. PO SCH ×2 (08:07→20:30)
[2020-08-05] MEDS: LACTOBACILLUS RHAMNOSUS GG 1 CAPSULE. PO SCH ×2 (08:07→20:29)
[2020-08-05] MEDS: DIVALPROEX SODIUM 250 MG TABLET.DR. PO SCH ×2 (08:07→20:30)
[2020-08-05] MEDS: MULTIVITAMIN with MINERAL TABLET. PO SCH (08:07)
[2020-08-05] MEDS: FOLIC ACID 1 MG TABLET PO SCH (08:07)
[2020-08-05] MEDS: GABAPENTIN 300 MG CAPSULE. PO SCH ×3 (08:07→20:30)
[2020-08-05] MEDS: PROMETHAZINE 25 MG TABLET. PO PRN (08:09)
[2020-08-05] MEDS: LORazepam 0.5 MG TABLET PO PRN ×2 (09:02→17:25)
[2020-08-05] MEDS: IV RINGERS SOLUTION,LACTATED 1,000 ML IV SCH (10:40)
[2020-08-05 11:22] VITALS: BP 130/90
[2020-08-05 15:45] VITALS: BP 136/95
[2020-08-05] MEDS ORDERED: LIDO:MAALOX 1:1 20 ML SINGLE DOSE. PO ONE (17:00)
[2020-08-05 20:15] VITALS: BP 133/87
[2020-08-05] MEDS: metroNIDAZOLE 500 MG TABLET PO SCH (20:30)
[2020-08-05] MEDS: traZODone 150 MG TABLET. PO PRN (20:30)
[2020-08-05 23:52] VITALS: BP 136/90
[2020-08-06] MEDS: IV RINGERS SOLUTION,LACTATED 1,000 ML IV SCH ×3 (01:03→21:55)
[2020-08-06] MEDS: metroNIDAZOLE 500 MG TABLET PO SCH ×3 (05:48→21:04)
[2020-08-06 06:07] VITALS: BP 136/93
--- NOTE | 2020-08-06 06:08 | PN ---
SUBJECTIVE: A 45-year-old female admitted with abdominal pain, nausea. The patient has been severely dehydrated. She continues to make steady progress. She is on IV Flagyl. She had severe nausea and vomiting, unrelenting. The patient says she is doing a little better, but still having severe pain in her abdominal area, especially with palpation. OBJECTIVE: VITAL SIGNS: Include that of blood pressure 136/95, respiratory rate 18, pulse 112, afebrile 90% on room air. GENERAL: The patient is alert and oriented. LUNGS: Diminished but clear. CARDIOVASCULAR: Stable. ABDOMEN: Soft. There is definite tenderness, guarding, but no rebounding, positive bowel sounds, no hepatosplenomegaly noted. EXTREMITIES: No clubbing, cyanosis, nor edema. NEUROLOGIC: Intact. IMPRESSION: Therefore of sepsis, colitis, post-alcohol withdrawal and doing well, hypokalemia. Potassium was up. Liver enzymes normal. Lipase normal. Nausea, vomiting, dehydration, leukocytosis. White count, still holding steady. PLAN: Continue to monitor the patient and continue to monitor her potassium, which is up to 3.9. VARSHA DR: Travon TID: [id number]
[2020-08-06 06:41] LABS: CALCIUM 7.9 mg/dL (8.5-10.1); CREATININE 0.7 mg/dL (0.6-1.0); GFR 90.5; POTASSIUM 4.3 mmol/L (3.5-5.1)
[2020-08-06 06:51] LABS: BASO % 0 % (0-3); EOS # 0.2 x10^3/uL (0.0-0.7); EOS % 4 % (0-3); HEMATOCRIT 38.6 % (36.0-47.0); HEMOGLOBIN 13.2 g/dL (12.0-15.5); LYMPH % 17 % (24-48); MEAN CORPUSCULAR HEMOGLOBIN 34 pg (25-35); MEAN CORPUSCULAR HGB CONC 34 g/dL (31-37); MEAN CORPUSCULAR VOLUME 100 fL (79-100); MONO # 0.6 x10^3/uL (0.0-1.1); MONO % 9 % (0-9); NEUT # 4.3 x10^3uL (1.8-7.7); NEUT % 70 % (31-73); PLATELET COUNT 233 x10^3/uL (140-400); RED BLOOD COUNT 3.88 x10^6/uL (3.50-5.40); RED CELL DISTRIBUTION WIDTH 14.6 % (11.5-14.5); WHITE BLOOD COUNT 6.3 x10^3/uL (4.0-11.0)
[2020-08-06] MEDS: DIVALPROEX SODIUM 250 MG TABLET.DR. PO SCH ×2 (09:00→21:04)
[2020-08-06] MEDS: THIAMINE 100 MG TABLET. PO SCH (09:00)
[2020-08-06] MEDS: GABAPENTIN 300 MG CAPSULE. PO SCH ×3 (09:00→21:04)
[2020-08-06] MEDS: QUEtiapine 100 MG TABLET. PO SCH ×3 (09:00→21:04)
[2020-08-06] MEDS: FOLIC ACID 1 MG TABLET PO SCH (09:00)
[2020-08-06] MEDS: LACTOBACILLUS RHAMNOSUS GG 1 CAPSULE. PO SCH ×2 (09:00→21:04)
[2020-08-06] MEDS: POTASSIUM CHLORIDE 20 MEQ TABLET.ER. PO SCH ×2 (09:00→21:04)
[2020-08-06] MEDS: MULTIVITAMIN with MINERAL TABLET. PO SCH (09:00)
[2020-08-06] MEDS: busPIRone 10 MG TABLET. PO SCH ×3 (09:01→21:04)
[2020-08-06] MEDS: PROMETHAZINE 25 MG TABLET. PO PRN (09:05)
[2020-08-06 11:03] VITALS: BP 125/83
[2020-08-06] MEDS ORDERED: PANTOPRAZOLE 40 MG TABLET. PO ONE (12:15)
[2020-08-06 14:55] VITALS: BP 118/85
[2020-08-06 19:00] VITALS: BP 135/91
[2020-08-06] MEDS ORDERED: FAMOTIDINE 20 MG TABLET PO SCH (21:00)
[2020-08-06] MEDS: traZODone 150 MG TABLET. PO PRN (21:05)
[2020-08-06 22:58] VITALS: BP 121/87
[2020-08-07] MEDS: metroNIDAZOLE 500 MG TABLET PO SCH (05:07)
[2020-08-07 05:15] VITALS: BP 136/89
[2020-08-07] MEDS ORDERED: PANTOPRAZOLE 40 MG TABLET. PO SCH (07:30)
[2020-08-07] MEDS: QUEtiapine 100 MG TABLET. PO SCH (07:48)
[2020-08-07] MEDS: GABAPENTIN 300 MG CAPSULE. PO SCH (07:48)
[2020-08-07] MEDS: FOLIC ACID 1 MG TABLET PO SCH (07:48)
[2020-08-07] MEDS: LACTOBACILLUS RHAMNOSUS GG 1 CAPSULE. PO SCH (07:48)
[2020-08-07] MEDS: POTASSIUM CHLORIDE 20 MEQ TABLET.ER. PO SCH (07:49)
[2020-08-07] MEDS: MULTIVITAMIN with MINERAL TABLET. PO SCH (07:49)
[2020-08-07] MEDS: DIVALPROEX SODIUM 250 MG TABLET.DR. PO SCH (07:49)
[2020-08-07] MEDS: THIAMINE 100 MG TABLET. PO SCH (07:49)
[2020-08-07] MEDS: busPIRone 10 MG TABLET. PO SCH (07:49)
[2020-08-07] MEDS ORDERED: BUDESONIDE 3 MG CAP.ER.24H. PO SCH (09:00)
--- NOTE | 2020-08-07 09:58 | NUR ---
NURSING NOTE FOLLOW UP FOLLOW UP WITH: DR YANCEY () [phone] [place] [address]. [id number] FridayAugust AT 9:00AM YOU WILL HAVE A $125 CO-PAY FOR SELF PAY FOR THE VISIT PER DR YANCEY OFFICE.
[2020-08-07] MEDS ORDERED: PANT40TA6 PO (10:20)
[2020-08-07] MEDS ORDERED: METR500T PO (10:20)
[2020-08-07] MEDS ORDERED: LORA0.5T21 PO ×2 (10:20→10:30)
[2020-08-07] MEDS ORDERED: FAMO20TA5 PO (10:20)
[2020-08-07] MEDS ORDERED: BUDE3CAP2 PO (10:28)
--- NOTE | 2020-08-07 11:00 | NUR ---
NURSING NOTE DISCHARGE PT PICKED UP BY , DISCHARGE INSTRUCTIONS GIVEN TO PT. SCRIPT FOR FLAGYL SENT TO [facility]. PT EDUCATED ABOUT NOT DRINKING WITH FLAGYL. PT ENCOURAGED TO FOLLOW UP WITH DR YANCEY AT SCHEDULED APPT. PT DENIES ANY FURTHER QUESTIONS. PT GIVEN WORK NOTE BY DR PENNY. NAYELI JAMES.
--- NOTE | 2020-08-07 14:38 | DS ---
DATE OF DISCHARGE: 08/07/2020 HOSPITAL COURSE: A 45-year-old female who came in through the emergency room with colitis, severe abdominal pain. The patient had been unable to eat or drink for the last couple of weeks. She notes severe ripping, tearing sensation in her abdomen as well as painful urination. She has had some nausea with nonbilious vomitus. CT scan showed colonic wall thickening suspicious for colitis and steatosis. The patient was admitted and placed on IV fluids and rest of the bowel as well as some IV metronidazole. The patient's initial white count was over 19,000, hemoglobin 15 and 45 that came down with the antibiotics down to 6.3 and 13. The patient otherwise made good progress. Her potassium was on the low side and so we went ahead and obviously put her on a potassium and electrolyte replacement therapy per protocol of the hospital itself. The patient made steady progress, although she complained of problems with swallowing and things getting caught in her throat. For that, we did arrange to have her placed with Dr. Burns noted a putty mixer and applier to have that evaluated as an outpatient as otherwise the patient was basically stable. The patient made excellent progress during the rest of her hospitalization. Tenderness was still present to some degree, but not anywhere near. She was able to at least drink and eat soft foods. Her pulse came down into the 90s. It was in the lower 100s initially. The patient made good progress. Discharged home. IMPRESSION: Sepsis, colitis, sinus tachycardia, history of alcoholism in remission, severe hypokalemia, hyperglycemia. Otherwise, the patient made good progress. See MRAD. Decreased activity. Encouraged to stop smoking, drinking. Return to clinic for followup in 7 to 10 days or sooner as needed. Work release given. MALLORIE DR: Travon TID: [id number]
== END 2020-08-07 11:02 | disposition home or self-care (01) | DRG 872 ==
LOC: ER 10:18 → 1 SOUTH 12:57
PROVIDERS: ADMIT Family Medicine; ATTEND Family Medicine
DX: A41.9 Sepsis, unspecified organism (principal); F10.239 Alcohol dependence with withdrawal, unspecified; F41.0 Panic disorder [episodic paroxysmal anxiety]; F32.9 Major depressive disorder, single episode, unspecified; K21.9 Gastro-esophageal reflux disease without esophagitis; F17.200 Nicotine dependence, unspecified, uncomplicated; E87.6 Hypokalemia; E86.0 Dehydration; Z88.0 Allergy status to penicillin; R73.9 Hyperglycemia, unspecified
CPT/HCPCS: 36415; 74177; 80047; 80048; 80053; 80307; 81001; 83605; 83690; 83735; 84484; 85007; 85025; 87086; 93005; 96365; 96368; 96375; G0480; J2765; J3010; J3490; J7042; J7120; Q0169; Q9967; 99291-25; J7030

== ENCOUNTER 2020-08-15 02:51 | Emergency (ER) | payer SELFPAY ==
[~2020-08-15] VITALS: Ht 154.9 cm; Wt 59.7 kg
[~2020-08-15 02:51] MED LIST changes: +BUDE3CAP2 PO; +BUSP10TA PO; +DIVA-53 PO; +FAMO20TA5 PO; +LORA0.5T21 PO; +PANT40TA6 PO; +QUET200T PO; +QUET300T PO; +TRAZ150T49 PO
[2020-08-15] MEDS ORDERED: METOCLOPRAMIDE HCL 10 MG/2 ML VIAL. IM ONE (03:15)
[2020-08-15] MEDS ORDERED: ONDANSETRON PF 4 MG/2 ML VIAL. IM ONE (03:15)
--- NOTE | 2020-08-15 03:28 | PHYS DOC ---
Past History Past Medical History: Alcoholism, Anxiety, Depression, GERD, Hepatitis, Pancreatitis, Seizure, Other Additional Past Medical Histor: patient reports a history of ulcerative colitis; c diff Past Surgical History: Other Additional Past Surgical Histo: hernia-umbilical; debi ankle surgeries Smoking: Cigarettes, Less than 1pk/day Alcohol Use: Heavy Drug Use: None Adult General Chief Complaint Chief Complaint: ABDOMINAL PAIN HPI HPI Patient is a 45-year-old female who presents with a chief complaint of nausea a nd vomiting. States over the last day she has had intermittent episodes of nonbloody nonbilious emesis. States he had symptom similar about 10 days ago and was in the emergency department and was diagnosed with colitis and treated. States that since then she had episodes of bloating but no nausea, vomiting or diarrhea. Denies any recent trauma, travels, fevers, chest pain, shortness of breath, abdominal pain, dysuria, hematuria or blood in the stool. States she has not followed up with her primary care physician as advised as she has not had time. States she is still drinking alcohol but only 1-2 drinks a day. Denies any other drugs. Denies any known ill contacts. Patient states she cannot be as she has had a hysterectomy. Review of Systems Review of Systems Review of systems otherwise unremarkable except noted in HPI Current Medications Current Medications Current Medications Medications (Trade) Dose Ordered Sig/Shelley Start Time Stop Time Status Last Admin Dose Admin Fentanyl Citrate (Fentanyl 2ml Vial) 100 mcg 1X ONCE 08/15/20 03:15 08/15/20 03:16 DC Metoclopramide HCl (Reglan Vial) 10 mg 1X ONCE 08/15/20 03:15 08/15/20 03:16 DC Ondansetron HCl (Zofran) 8 mg 1X ONCE 08/15/20 03:15 08/15/20 03:16 DC Allergies Allergies Allergies Coded Allergies Type Severity Reaction Last Updated Verified Penicillins Allergy Intermediate HIVES 08/03/20 Yes Physical Exam Physical Exam Constitutional: Well developed, well nourished, no acute distress, non-toxic appearance. [] HENT: Normocephalic, atraumatic, bilateral external ears normal, oropharynx moist, no oral exudates, nose normal. [] Eyes: conjunctiva normal, no discharge. [] Neck: Normal range of motion, no tenderness, supple, no stridor. [] Cardiovascular:Heart rate regular rhythm, no murmur [] Lungs & Thorax: Bilateral breath sounds clear to auscultation [] Abdomen: Bowel sounds normal, soft, no tenderness, no masses, no pulsatile masses. [] Skin: Warm, dry, no erythema, no rash. [] Back: No tenderness, no CVA tenderness. [] Extremities: No tenderness, no cyanosis, no clubbing, ROM intact, no edema. [] Neurologic: Alert and oriented X 3, normal motor function, normal sensory function, no focal deficits noted. [] Psychologic: Affect normal, judgement normal, mood normal. [] Current Patient Data Vital Signs Vital Signs Date Time Temp Pulse Resp B/P (MAP) Pulse Ox O2 Delivery O2 Flow Rate FiO2 08/15/20 02:55 98.1 114 20 136/95 (109) 98 Room Air EKG EKG [] Radiology/Procedures Radiology/Procedures [] Heart Score C/O Chest Pain: No Risk Factors: Risk Factors: DM, Current or recent (<one month) smoker, HTN, HLP, family history of CAD, obesity. Risk Scores: Risk Factors: DM, Current or recent (<one month) smoker, HTN, HLP, family history of CAD, obesity. Course & Med Decision Making Course & Med Decision Making Patient is a 45-year-old female who presents with episodes of nonbloody nonbilious emesis Vital signs initially notable for sinus tachycardia. Physical exam noted above. Patient given pain and nausea medicine. Patient states she cannot be and in need of test. Patient able to take p.o. soda and candy without issue. Patient very grateful for symptom control. States she has had chronic episodes of nausea for years and usually has a hard time controlling it when it happens. Discussed strategies at home for nausea control. Gave prescription of Zofran as she has nothing at home for nausea control. Advised to follow-up with primary care physician in the morning. Gave return precautions to the ED. Patient very grateful, verbalized understanding and agreed with plan of discharge. Dragon Disclaimer Dragon Disclaimer This electronic medical record was generated, in whole or in part, using a voice recognition dictation system. Departure Departure: Impression: Primary Impression: Nausea & vomiting Disposition: HOME / SELF CARE / HOMELESS Condition: GOOD Referrals: CAMERON PENNY MD (PCP) Patient Instructions: Alcohol Problems, Nausea and Vomiting Additional Instructions: Thank you for coming into the emergency department tonight and allowing us to take care of you. You were given nausea and pain medicine in the emergency department. You are given a prescription of Zofran to take home. You are able to drink while in the emergency department which is reassuring. Please call your primary care physician first thing in the morning to update on ED visit and set up a follow-up visit. Please come back to the emergency department immediately with new or concerning symptoms as discussed. Scripts Ondansetron Hcl (ZOFRAN) 4 Mg Tablet 1 TAB PO PRN Q6HRS PRN for NAUSEA for 7 Days, #5 TAB 5 Refills Prov: ANGELITA WHITNEY MD 08/15/20 ANGELITA WHITNEY MD Aug 15, 2020 03:28
[2020-08-15 03:46] VITALS: BP 130/88
[2020-08-15] MEDS ORDERED: ONDA4TAB7 PO (03:57)
== END 2020-08-15 04:05 | disposition home or self-care (01) ==
LOC: ER 02:51
DX: R11.2 Nausea with vomiting, unspecified (principal); R14.0 Abdominal distension (gaseous); K21.9 Gastro-esophageal reflux disease without esophagitis; F10.29 Alcohol dependence with unspecified alcohol-induced disorder; F17.210 Nicotine dependence, cigarettes, uncomplicated; Z88.0 Allergy status to penicillin; Y90.9 Presence of alcohol in blood, level not specified
CPT/HCPCS: 96372; 99284; J2405; J2765; J3010

== ENCOUNTER 2020-09-08 21:24 | Emergency (ER) | payer SELFPAY ==
[~2020-09-08] VITALS: Ht 154.9 cm; Wt 57.6 kg
--- NOTE | 2020-09-08 21:29 | PHYS DOC ---
Past History Past Medical History: Alcoholism, Anxiety, Depression, GERD, Hepatitis, Pancreatitis, Seizure, Other Additional Past Medical Histor: patient reports a history of ulcerative colitis; c diff Past Surgical History: Other Additional Past Surgical Histo: hernia-umbilical; debi ankle surgeries Smoking: Cigarettes, Less than 1pk/day Alcohol Use: Heavy Drug Use: None General Adult EDM: Chief Complaint: ABDOMINAL PAIN HPI: HPI: ".. I ve been vomiting.. and got a sore throat...".. " I had diarrhea all day.. " I am vomiting.. after coughing..." " M y gut just hurts.. all day.. " Patient is a 45 year old female who presents with above hx and complaints of Abdomen pain, diarrhea, cramping, vomiting, diarrhea, sore throat and generalized malise. Pt. denies any intake of bad food. No specific ill contacts. No trauma. Has had Covid vaccination [employer] x2- 6 months ago. Patient. follows with Dr. Penny. No recent travel. Patient has past medical history of alcoholism, colitis, carpal tunnel syndrome, GERD, panic disorder, depression, anxiety, substance abuse, Lyme disease, influenza, C. difficile, insomnia, chronic pain, and a [id number] smoking history. Pt. states she has been off alcohol for past year. Review of Systems: Review of Systems: Constitutional: Denies fever or chills Eyes: Denies change in visual acuity HENT: Denies nasal congestion. Complains of sore throat Respiratory: Denies cough or shortness of breath Cardiovascular: Denies chest pain or edema GI: Complains of generalized abdominal pain, nausea, vomiting, and diarrhea : Denies dysuria Musculoskeletal: Denies back pain or joint pain Integument: Denies rash Neurologic: Denies headache, focal weakness or sensory changes Endocrine: Denies polyuria or polydipsia Lymphatic: Denies swollen glands Psychiatric: Denies depression or anxiety Family History: Family History: Noncontributory to presentation family members have heart disease Current Medications: Current Meds: See nursing for home medications Allergies: Allergies: Allergies Coded Allergies Type Severity Reaction Last Updated Verified Penicillins Allergy Intermediate HIVES 08/03/20 Yes Physical Exam: PE: Constitutional: Moderate acute distress, non-toxic appearance. [] HENT: Normocephalic, atraumatic, bilateral external ears normal, oropharynx dry, coated tongue,, injected pharynx no oral exudates, nose normal. [] Eyes: PERRLA, EOMI, conjunctiva normal, no discharge. [] Neck: Normal range of motion, no tenderness, supple, no stridor. [] Cardiovascular: Tachycardia heart rate regular rhythm, no murmur [] Lungs & Thorax: Bilateral breath sounds to apex with scattered wheezes and a nonproductive cough. Abdomen: Bowel sounds hyperactive, soft, generalized tenderness, no masses, no pulsatile masses. Rebound right lower quadrant. Surgery scar Skin: Warm, dry, no erythema, no rash. Poor turgor Back: No tenderness, no CVA tenderness. [] Extremities: No tenderness, no cyanosis, no clubbing, ROM intact, no edema. No sores. No cording. Positive psoas sign on right Neurologic: Alert and oriented X 3, moves extremities on request, has distal sensory, no focal deficits noted. [] Psychologic: Affect anxious, judgement normal, mood normal. [] EKG: EKG: My interpretation EKG shows a sinus rhythm at 85 bpm. No findings acute STEMI contralateral changes. [] Time of EKG is 2202 hrs. Radiology/Procedures: Radiology/Procedures: [place] [id number] IMAGING REPORT Signed PATIENT: ZAK MANZANARES ACCOUNT: [id number] : 1975 LOCATION: ER AGE: 45 SEX: F EXAM STATUS: REG ER ORD. PHYSICIAN: RAMSEY ACEVEDO MD REASON: pain PROCEDURE: ACUTE ABDOMEN SERIES Exam: Acute abdominal series INDICATION: Pain TECHNIQUE: Frontal view of chest with upright and supine views of the abdomen Comparisons: 08/03/2020 FINDINGS: The cardiomediastinal silhouette and pulmonary vessels are within normal limits. The lung and pleural spaces are clear. Air and stool are noted throughout the colon to level the rectum in a nonobstructive bowel gas pattern. No suspicious masses or calcifications. Visualized osseous structures are unremarkable. IMPRESSION: 1. No acute cardiopulmonary process. 2. Nonobstructive bowel gas pattern. Electronically signed by: Raisa Leon MD (09/08/2020 10:04 PM) [facility] [place] DICTATED AND SIGNED BY: RAISA LEON MD DATE: 09/08/202202 CC: CAMERON PENNY MD; RAMSEY ACEVEDO MD ~MTH0 [address] [place] [address] IMAGING REPORT Signed PATIENT: ZAK MANZANARES ACCOUNT: [id number] : 1975 LOCATION: ER AGE: 45 SEX: F EXAM STATUS: REG ER ORD. PHYSICIAN: RAMSEY ACEVEDO MD REASON: OMNI 300,75ML IV.OMNI 240 30ML PO.Pain,HX Colitis,Pancreatitis PROCEDURE: CT ABD PELV W/ORAL&IV CONTRAST Examination: CT of the abdomen pelvis with IV and oral contrast HISTORY: History of abdominal pain COMPARISON: 08/02/2020 TECHNIQUE: Axial CT images of the abdomen pelvis were performed with oral and IV contrast. Coronal and sagittal reformats are performed Exposure: One or more of the following individualized dose reduction techniques were utilized for this examination: 1. Automated exposure control 2. Adjustment of the mA and/or kV according to patient size 3. Use of iterative reconstruction technique FINDINGS: Minimal atelectasis right middle lobe, left lung base atelectasis. No evidence of free air identified in the abdomen. Mild decreased attenuation identified in the liver likely hepatic steatosis. The spleen, adrenals grossly appears unremarkable. The gallbladder is mildly distended. The stomach is mildly distended. The pancreas grossly appears unremarkable.The stomach is mildly distended. The small bowel is nondilated. Feces and gas noted in the colon. The bilateral kidneys enhance symmetrically. Urinary bladder is mildly distended. The appendix is dilated measuring 9 mm in transverse dimension with surrounding inflammatory fat stranding likely acute appendicitis. No evidence of lytic bony destructive changes identified. IMPRESSION: 1. Findings consistent with acute appendicitis. 2. Mild hepatic steatosis. Electronically signed by: Chalo Queen MD (09/09/2020 12:08 AM) [id number] DICTATED AND SIGNED BY: CHALO QUEEN MD DATE: 09/09/20 0000 CC: CAMERON PENNY MD; RAMSEY ACEVEDO MD ~MTH0 0 Heart Score: C/O Chest Pain: No HEART Score for Chest Pain: HEART Score for Chest Pain Response (Comments) Value History Slighlty/Non-Suspicious 0 ECG Normal 0 Age >45 - < 65 1 Risk Factors 1 or 2 Risk Factors 1 Troponin < Normal Limit 0 Total 2 Risk Factors: Risk Factors: DM, Current or recent (<one month) smoker, HTN, HLP, family history of CAD, obesity. Risk Scores: Score 0 - 3: 2.5% MACE over next 6 weeks - Discharge Home Score 4 - 6: 20.3% MACE over next 6 weeks - Admit for Clinical Observation Score 7 - 10: 72.7% MACE over next 6 weeks - Early Invasive Strategies Course & Med Decision Making: Course & Med Decision Making Pertinent Labs and Imaging studies reviewed. (See chart for details) Discussed presentation, testing and treatment plan with - will accept in transfer to [facility] Discussed presentation, testing and tx plan with Dr. Lebron. He will consult on CT diagnosis of appendicitis. Impression: 1. Nausea, Vomiting, Diarrhea 2. Abdomen pain 3. Appendicitis 4. Dehydration 5. Tobacco and marijuana use 6. History of colitis 7. UTI [] Dragon Disclaimer: Dragon Disclaimer: This electronic medical record was generated, in whole or in part, using a voice recognition dictation system. Departure Departure: Referrals: CAMERON PENNY MD (PCP) Dragon Disclaimer This chart was dictated in whole or in part using Voice Recognition software in a busy, high-work load, and often noisy Emergency Department environment. It may contain unintended and wholly unrecognized errors or omissions. Dragon Disclaimer This chart was dictated in whole or in part using Voice Recognition software in a busy, high-work load, and often noisy Emergency Department environment. It may contain unintended and wholly unrecognized errors or omissions. Dragon Disclaimer This chart was dictated in whole or in part using Voice Recognition software in a busy, high-work load, and often noisy Emergency Department environment. It may contain unintended and wholly unrecognized errors or omissions. RAMSEY ACEVEDO MD Sep 08, 2020 21:29
[2020-09-08] MEDS ORDERED: FAMOTIDINE 20 MG/2 ML VIAL IVP ONE (21:45)
[2020-09-08] MEDS ORDERED: KETOROLAC 30 MG/ML VIAL. IVP ONE (21:45)
[2020-09-08] MEDS ORDERED: ONDANSETRON PF 4 MG/2 ML VIAL. IVP ONE (21:45)
[2020-09-08] MEDS ORDERED: IV RINGERS SOLUTION,LACTATED 1,000 ML IV SCH (21:45)
[2020-09-08] MEDS ORDERED: IPRATRPIUM/ALBUTEROL 0.5/2.5MG 3 ML NEBU. NEB ONE (21:45)
--- NOTE | 2020-09-08 22:06 | RAD ---
Exam: Acute abdominal series INDICATION: Pain TECHNIQUE: Frontal view of chest with upright and supine views of the abdomen Comparisons: 08/03/2020 FINDINGS: The cardiomediastinal silhouette and pulmonary vessels are within normal limits. The lung and pleural spaces are clear. Air and stool are noted throughout the colon to level the rectum in a nonobstructive bowel gas patter n. No suspicious masses or calcifications. Visualized osseous structures are unremarkable. IMPRESSION: 1. No acute cardiopulmonary process. 2. Nonobstructive bowel gas pattern. Electronically signed by: Raisa Bishop MD (09/08/2020 10:04 PM) [facility]
[2020-09-08] MEDS ORDERED: IOHEXOL 240 MG/ML 50ML VIAL. ONE (22:29)
[2020-09-08] MEDS ORDERED: IOHEXOL 300 MG/ML 75 ML VIAL. IV ONE (22:30)
[2020-09-08 22:34] LABS: BASO % 0 % (0-3); EOS % 0 % (0-3); HEMATOCRIT 42.1 % (36.0-47.0); HEMOGLOBIN 14.5 g/dL (12.0-15.5); LYMPH # 0.7 x10^3/uL (1.0-4.8); LYMPH % 8 % (24-48); MEAN CORPUSCULAR HEMOGLOBIN 34 pg (25-35); MEAN CORPUSCULAR HGB CONC 35 g/dL (31-37); MEAN CORPUSCULAR VOLUME 99 fL (79-100); MONO # 0.5 x10^3/uL (0.0-1.1); MONO % 5 % (0-9); NEUT # 8.3 x10^3uL (1.8-7.7); NEUT % 87 % (31-73); PLATELET COUNT 171 x10^3/uL (140-400); RED BLOOD COUNT 4.25 x10^6/uL (3.50-5.40); RED CELL DISTRIBUTION WIDTH 15.9 % (11.5-14.5); WHITE BLOOD COUNT 9.6 x10^3/uL (4.0-11.0)
[2020-09-08 22:42] LABS: CALCIUM 8.6 mg/dL (8.5-10.1); CREATININE 0.7 mg/dL (0.6-1.0); GFR 90.5; POTASSIUM 3.9 mmol/L (3.5-5.1)
[2020-09-08 22:52] LABS: ALBUMIN 3.8 g/dL (3.4-5.0); DIRECT BILIRUBIN 0.2 mg/dL (0.0-0.2); TOTAL BILIRUBIN 1.1 mg/dL (0.2-1.0); TOTAL PROTEIN 7.4 g/dL (6.4-8.2)
[2020-09-08] MEDS ORDERED: ALBUTEROL SULFATE 8GM INHALER. ONE (22:55)
[2020-09-08 23:30] LABS: BARBITURATES NEG (NEG); BENZODIAZEPINES NEG (NEG); CANNABINOIDS POS (NEG); COCAINE NEG (NEG); METHADONE NEG (NEG); OPIATES NEG (NEG); PHENCYCLIDINE NEG (NEG)
[2020-09-08 23:37] LABS: INFLUENZA A PATIENT NEGATIVE (NEGATIVE); INFLUENZA B PATIENT NEGATIVE (NEGATIVE)
[2020-09-08 23:37] LABS: AMPHETAMINE/METHAMPHETAMINE NEG (NEG)
[2020-09-08 23:46] LABS: BILIRUBIN,URINE SMALL (NEG); CLARITY,URINE HAZY; COLOR,URINE YELLOW; GLUCOSE,URINE NEG (NEG); NITRITE,URINE NEG (NEG)
[2020-09-08 23:47] LABS: BACTERIA,URINE MANY /HPF (0-FEW); RBC,URINE >40 /HPF (0-2); SQUAMOUS EPITHELIAL CELL,UR MANY /LPF; WBC,URINE >40 /HPF (0-4)
[2020-09-09] MEDS ORDERED: MORPHINE SULFATE 10 MG/ML SYRINGE. SQ ONE
--- NOTE | 2020-09-09 00:10 | RAD ---
Examination: CT of the abdomen pelvis with IV and oral contrast HISTORY: History of abdominal pain COMPARISON: 08/02/2020 TECHNIQUE: Axial CT images of the abdomen pelvis were performed with oral and IV contrast. Coronal an d sagittal reformats are performed Exposure: One or more of the following individualized dose reduction techniques were utilized for thi s examination: 1. Automated exposure control 2. Adjustment of the mA and/or kV according to patient size 3. Use of iterative reconstruction technique FINDINGS: Minimal atelectasis right middle lobe, left lung base atelectasis. No evidence of free air identified in the abdomen. Mild decreased attenuation identified in the liver likely hepatic steatosis. The spleen, adrenals grossly appears unremarkable. The gallbladder is mildly distended. The stomach is mildly distended. The pancreas grossly appears un remarkable.The stomach is mildly distended. The small bowel is nondilated. Feces and gas noted in the colon. The bilateral kidneys enhance symmetrically. Urinary bladder is mildly distended. The appendix is dilated measuring 9 mm in transverse dimension with surrounding inflammatory fat stra nding likely acute appendicitis. No evidence of lytic bony destructive changes identified. IMPRESSION: 1. Findings consistent with acute appendicitis. 2. Mild hepatic steatosis. Electronically signed by: Chalo Solomon MD (09/09/2020 12:08 AM) [id number]
[2020-09-09] MEDS ORDERED: CIPROFLOXACIN 400MG PREMIX 200 ML IV ONE (00:30)
[2020-09-09 01:50] VITALS: BP 139/83
--- NOTE | 2020-09-09 02:02 | EKG ---
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
== END 2020-09-09 02:21 | disposition short-term general hospital (02) ==
LOC: ER 21:24
DX: K37 Unspecified appendicitis (principal); E86.0 Dehydration; N39.0 Urinary tract infection, site not specified; F12.10 Cannabis abuse, uncomplicated; K21.9 Gastro-esophageal reflux disease without esophagitis; F17.210 Nicotine dependence, cigarettes, uncomplicated; Z88.0 Allergy status to penicillin; Z20.822 Contact with and (suspected) exposure to COVID-19
CPT/HCPCS: 36415; 74022; 74177; 80048; 80076; 80307; 81001; 82150; 82550; 83690; 84484; 84702; 85025; 87070; 87086; 87426; 87804; 87880; 93005; 94640; 96361; 96365; 96367; 96372; 96375; 99285; C9803; G0480; J0744; J1885; J2270; J2405; J3490; J7120; Q9967; U0003; 94664

== ENCOUNTER 2021-04-27 21:45 | Emergency (ER) | payer OTHER ==
[~2021-04-27] VITALS: Ht 154.9 cm; Wt 63.7 kg
[~2021-04-27 21:45] MED LIST changes: +POTA-121 PO; -QUET200T PO; +QUET200T2 PO; -QUET300T PO; +QUET300T2 PO
--- NOTE | 2021-04-27 22:12 | PHYS DOC ---
Past History Past Medical History: Alcoholism, Anxiety, Depression, GERD, Hepatitis, Pancreatitis, Seizure, Other Additional Past Medical Histor: patient reports a history of ulcerative colitis; c diff Past Surgical History: Other Additional Past Surgical Histo: hernia-umbilical; debi ankle surgeries Smoking: Cigarettes, Less than 1pk/day Alcohol Use: Heavy Drug Use: None General Adult EDM: Chief Complaint: MULTIPLE COMPLAINTS HPI: HPI: ".. I had a seizure.. " " I ve had seizures in the past... " " but they sherin stopped when I stopped drinking.,,,"..They were so infrequent when I stop drinking..." I stopped taking any seizure meds" I used to be on seizure meds. daily... . but have been off a long time..".. Patient is a 46 year old female who presents with tonic-clonic seizure. Patient denies any fever or chills. No recent travel. No specific ill contacts. Denies return to her alcohol dependence -states she has been sober since August last year.. She has had past medical history of colitis, carpal tunnel syndrome, GE RD, panic disorder, depression, anxiety, polysubstance abuse, Lyme disease, colitis, GERD, C. difficile, insomnia, alcohol withdrawal seizures, history of bipolar disorder, sepsis, hypokalemia, UTIs, and allergies to penicillins. Patient in the past has been on Dilantin and Depakote for control of her seizures patient does smoke tobacco. Patient has had an upset stomach today. No tarry stools. No recent travel. No specific ill contacts. No history of immunosuppression. Patient follow-up with Dr. Bahena. Pt. has also seen Dr. Penny in past. Review of Systems: Review of Systems: Constitutional: Denies fever or chills Eyes: Denies change in visual acuity HENT: Denies nasal congestion or sore throat Respiratory: Denies cough or shortness of breath Cardiovascular: Denies chest pain or edema GI: Denies abdominal pain, nausea, vomiting, bloody stools or diarrhea : Denies dysuria Musculoskeletal: Denies back pain or joint pain Integument: Denies rash Neurologic: Denies headache, focal weakness or sensory changes. Complains of the seizure Endocrine: Denies polyuria or polydipsia Lymphatic: Denies swollen glands Psychiatric: Denies depression or anxiety Family History: Family History: Heart disease late in life Current Medications: Current Meds: See nursing for home meds Allergies: Allergies: Allergies Coded Allergies Type Severity Reaction Last Updated Verified Penicillins Allergy Intermediate HIVES 08/03/20 Yes Physical Exam: PE: Constitutional: no acute distress, non-toxic appearance. [] HENT: Normocephalic, atraumatic, bilateral external ears normal, oropharynx moist, no oral exudates, nose normal. Small indurated tongue Eyes: PERRLA, EOMI, conjunctiva normal, no discharge. [] Neck: Normal range of motion, no tenderness, supple, no stridor. [] Cardiovascular:Heart rate regular rhythm, no murmur [] Lungs & Thorax: Bilateral breath sounds equal at apex with few scattered wheezes auscultation [] Abdomen: Bowel sounds normal, soft, no tenderness, no masses, no pulsatile masses. [] Skin: Warm, dry, no erythema, no rash. [] Back: No tenderness, no CVA tenderness. [] Extremities: No tenderness, no cyanosis, no clubbing, ROM intact, no edema. No cording in legs. Neurologic: Alert and oriented X 3, normal motor function, normal sensory function, no focal deficits noted. DTRs +2 patella and brachial.. No drift. 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 Ambulatory without problems. Patient was inserted to ED for additional 4 hours with no seizure activity. Did have mild intentional tremor. Psychologic: Affect anxious, judgement normal, mood normal. [] EKG: EKG: My interpretation EKG shows a sinus rhythm at 69 bpm. No acute morphology. Time of EKG is 2251 hrs. [] Radiology/Procedures: Radiology/Procedures: [][place] [address] IMAGING REPORT Signed PATIENT: ZAK MANZANARES ACCOUNT: [id number] : 1975 LOCATION: ER AGE: 46 SEX: F EXAM STATUS: PRE ER ORD. PHYSICIAN: RAMSEY ACEVEDO MD REASON: CHEST DISCOMFORT, LOWER CENTRAL ABD PAIN PROCEDURE: ACUTE ABDOMEN SERIES Exam: Acute abdominal series INDICATION: Chest discomfort TECHNIQUE: Frontal view of the chest with upright and supine views of the abdomen Comparisons: None FINDINGS: The cardiomediastinal silhouette and pulmonary vessels are within normal limits. The lung and pleural spaces are clear. Air and stool are noted throughout the colon to level the rectum in a nonobstructive bowel gas pattern. No suspicious masses or calcifications. Visualized osseous structures are unremarkable. IMPRESSION: 1. No acute cardiopulmonary process. 2. Nonobstructive bowel gas pattern. Electronically signed by: Raisa Leon MD (04/27/2021 11:05 PM) [facility] DICTATED AND SIGNED BY: RAISA LEON MD DATE: 04/27/212303 CC: CAMERON PENNY MD; RAMSEY ACEVEDO MD ~MTH0 0 Heart Score: C/O Chest Pain: N/A Risk Factors: Risk Factors: DM, Current or recent (<one month) smoker, HTN, HLP, family history of CAD, obesity. Risk Scores: Score 0 - 3: 2.5% MACE over next 6 weeks - Discharge Home Score 4 - 6: 20.3% MACE over next 6 weeks - Admit for Clinical Observation Score 7 - 10: 72.7% MACE over next 6 weeks - Early Invasive Strategies Course & Med Decision Making: Course & Med Decision Making Pertinent Labs and Imaging studies reviewed. (See chart for details) Patient was observed in ED for distal 4 hours in ED with no episodes a repeat seizure activity. Patient did asked to be started back on a seizure medication. Will start on Dilantin 300 mg at night. Note at time of discharge urine drug screen has not returned on this patient. Impression: 1. History of seizure [id number] 2. Mild intentional tremor 3. History of polysubstance abuse 4. History of alcohol dependence -(reportedly no longer drinking)- 5. History of prior seizure activity and alcohol withdrawal seizures 6. History of GERD [] Dragon Disclaimer: Dragon Disclaimer: This electronic medical record was generated, in whole or in part, using a voice recognition dictation system. Departure Departure: Referrals: CAMERON PENNY MD (PCP) Scripts Phenytoin Sodium Extended (PHENYTOIN SODIUM EXTENDED) 300 Mg Capsule 300 MG PO HS for sz, #30 CAP Prov: RAMSEY ACEVEDO MD 04/28/21 Dragon Disclaimer This chart was dictated in whole or in part using Voice Recognition software in a busy, high-work load, and often noisy Emergency Department environment. It may contain unintended and wholly unrecognized errors or omissions. Dragon Disclaimer This chart was dictated in whole or in part using Voice Recognition software in a busy, high-work load, and often noisy Emergency Department environment. It may contain unintended and wholly unrecognized errors or omissions. RAMSEY ACEVEDO MD Apr 27, 2021 22:12
[2021-04-27] MEDS ORDERED: IV RINGERS SOLUTION,LACTATED 1,000 ML IV SCH (22:30)
[2021-04-27 22:57] LABS: BASO % 1 % (0-3); EOS # 0.2 x10^3/uL (0.0-0.7); EOS % 3 % (0-3); HEMATOCRIT 37.9 % (36.0-47.0); HEMOGLOBIN 12.9 g/dL (12.0-15.5); LYMPH # 1.2 x10^3/uL (1.0-4.8); LYMPH % 21 % (24-48); MEAN CORPUSCULAR HEMOGLOBIN 34 pg (25-35); MEAN CORPUSCULAR HGB CONC 34 g/dL (31-37); MEAN CORPUSCULAR VOLUME 99 fL (79-100); MONO # 0.5 x10^3/uL (0.0-1.1); MONO % 9 % (0-9); NEUT # 3.9 x10^3uL (1.8-7.7); NEUT % 67 % (31-73); PLATELET COUNT 274 x10^3/uL (140-400); RED BLOOD COUNT 3.83 x10^6/uL (3.50-5.40); RED CELL DISTRIBUTION WIDTH 13.5 % (11.5-14.5); WHITE BLOOD COUNT 5.7 x10^3/uL (4.0-11.0)
[2021-04-27 23:03] LABS: CREATININE 0.9 mg/dL (0.6-1.0); GFR 67.4; POTASSIUM 3.8 mmol/L (3.5-5.1)
--- NOTE | 2021-04-27 23:07 | RAD ---
Exam: Acute abdominal series INDICATION: Chest discomfort TECHNIQUE: Frontal view of the chest with upright and supine views of the abdomen Comparisons: None FINDINGS: The cardiomediastinal silhouette and pulmonary vessels are within normal limits. The lung and pleural spaces are clear. Air and stool are noted throughout the colon to level the rectum in a nonobstructive bowel gas patter n. No suspicious masses or calcifications. Visualized osseous structures are unremarkable. IMPRESSION: 1. No acute cardiopulmonary process. 2. Nonobstructive bowel gas pattern. Electronically signed by: Raisa Bishop MD (04/27/2021 11:05 PM) [facility]
[2021-04-27 23:16] LABS: ALBUMIN 3.9 g/dL (3.4-5.0); DIRECT BILIRUBIN 0.1 mg/dL (0.0-0.2); TOTAL BILIRUBIN 0.4 mg/dL (0.2-1.0)
--- NOTE | 2021-04-27 23:27 | EKG ---
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
[2021-04-27 23:35] LABS: INFLUENZA A PATIENT NEGATIVE (NEGATIVE); INFLUENZA B PATIENT NEGATIVE (NEGATIVE)
[2021-04-27 23:51] LABS: U PREG PATIENT NEGATIVE (NEG)
[2021-04-28] MEDS ORDERED: FLUO40CA9 PO (00:13)
[2021-04-28] MEDS ORDERED: QUET400T7 PO (00:13)
[2021-04-28] MEDS ORDERED: PRAZ2CAP2 PO (00:13)
[2021-04-28] MEDS ORDERED: PHEN300C4 PO (00:32)
[2021-04-28] MEDS ORDERED: PHENYTOIN SODIUM EXTENDED 100 MG CAPSULE PO ONE (01:00)
[2021-04-28 01:30] VITALS: BP 118/78
== END 2021-04-28 01:50 | disposition home or self-care (01) ==
LOC: ER 21:45
DX: G25.2 Other specified forms of tremor (principal); F19.10 Other psychoactive substance abuse, uncomplicated; K21.9 Gastro-esophageal reflux disease without esophagitis; F10.20 Alcohol dependence, uncomplicated; F41.9 Anxiety disorder, unspecified; F17.210 Nicotine dependence, cigarettes, uncomplicated; F31.9 Bipolar disorder, unspecified; Z20.822 Contact with and (suspected) exposure to COVID-19; Z87.440 Personal history of urinary (tract) infections; Z88.0 Allergy status to penicillin; Y90.9 Presence of alcohol in blood, level not specified
CPT/HCPCS: 36415; 74022; 80048; 80076; 81025; 82550; 83690; 83735; 83880; 84443; 84484; 85025; 85379; 85610; 87428; 93005; 96361; 96374; 99285; J2060; J7120